=== PATIENT | male | born 1930 | race Hispanic/Latino ===

== ENCOUNTER 2017-03-10 20:38 | Inpatient (IN) | payer MEDICARE, OTHER ==
[2017-03-10] MEDS ORDERED: Iohexol 240 (50 ml) ONE (21:21)
[2017-03-10] MEDS: Sodium Chloride 0.9% 1,000 ML IV SCH (21:25)
[2017-03-10 21:44] LABS: MEAN CELL VOLUME 71.2 fL (80.0-105.0); MEAN CORPUSCULAR HEMOGLOBIN 20.8 pg (25.0-35.0); MEAN CORPUSCULAR HGB CONC 29.2 g/dl (31.0-37.0); PLATELET COUNT 274 10^3/uL (120.0-450.0); RBC 3.37 10^6/uL (3.5-6.1); RED CELL DISTRIBUTION WIDTH 20.9 % (11.5-14.5); WHITE BLOOD COUNT 11.4 10^3/ul (4.5-11.0)
[2017-03-10 21:50] LABS: INR 1.1 (0.93-1.08); PARTIAL THROMBOPLASTIN TIME 32.9 Seconds (23.7-30.8); PROTHROMBIN TIME 11.9 Seconds (9.9-11.8)
[2017-03-10 21:52] LABS: ALBUMIN 3.1 g/dL (3.0-4.8); ALT/SGPT 21 U/L (7-56); AST/SGOT 16 U/L (15-59); BLOOD UREA NITROGEN 47 mg/dL (7-21); CALCIUM 8.2 mg/dL (8.4-10.5); GFR AFRICAN-AMERICAN 19; GFR NON-AFRICAN AMERICAN 16; LIPASE 31 U/L (23-300)
[2017-03-10] MEDS ORDERED: Dextrose 50% SYRINGE Inj (50 ml) ONE (22:00)
[2017-03-10 22:03] LABS: TROPONIN I < 0.01 ng/mL
[2017-03-10 22:20] LABS: BAND 5 % (0-2); NEUTROPHIL 90 % (50.0-70.0)
[2017-03-10 22:21] LABS: HYPOCHROMIA 2+; LYMPHOCYTE 3 % (22.0-35.0); MONOCYTE 2 % (1.0-6.0); PLATELET ESTIMATE NORMAL (NORMAL)
--- NOTE | 2017-03-10 23:44 | CT ---
EXAM: CT Abdomen and Pelvis Without Intravenous Contrast CLINICAL HISTORY: 86 years old, male; Pain; Abdominal pain; Localized; Right; Additional info: Right-sided abdominal pain TECHNIQUE: Axial computed tomography images of the abdomen and pelvis without intravenous contrast. This CT exam was performed using one or more of the following dose reduction techniques: automated exposure control, adjustment of the mA and/or kV according to patient size, and/or use of iterative reconstruction technique. Coronal and sagittal reformatted images were created and reviewed. EXAM DATE/TIME: Exam ordered 03/10/2017 10:03 PM COMPARISON: CT - ABD PELVIS W/O PO OR IV CONT 02/09/2017 11:26:13 AM FINDINGS: Lower thorax: The lung bases show dependent atelectatic changes on the right, reason for asymmetry unclear and correlation for airspace disease suggested. There is cardiomegaly. Calcifications associated with the aortic valve leaflets. Calcifications in keeping with coronary artery disease. Additional left ventricle calcifications which are poorly localized, possibly calcification associated with the mitral valve versus papillary muscles. Trace perihepatic ascites favored to be on a cardiac rather than malignant basis. ABDOMEN: Liver: Unremarkable. Gallbladder and bile ducts: There is redemonstration of biliary air. Again noted that the gallbladder is not identified with certainty. No ductal dilation. Pancreas: Pancreatic duct is not clearly visualized. There is a stable calcification associated with the uncinate process series 2 image 73 without change from series 2 image 82 of the previous examination. This is not definitely parenchymal, noting that it is at the periphery of the parenchyma. Spleen: Unremarkable. No splenomegaly. Adrenals: The appearance of the adrenal glands is similar to the previous study. Kidneys and ureters: Redemonstration of right hydronephrosis and hydroureter to a similar degree as the previous study, with the right ureter is seen to be dilated to its entry to the markedly abnormal bladder. There is now left hydronephrosis which is new since the previous examination. Left hydroureter extends to approximately the level of the iliac crests, etiology is unclear although multiple left renal pelvic calculi are seen. In addition, there is a left ureterovesical junction possible calculus noting that the distal left ureter is again distended, left calculus slightly proximal to the left ureteral vesicle junction measures 7 mm as seen coronal image 76-73. In addition, there is redemonstration of multiple bilateral renal cystic findings, majority of which appear simple a few of which appear high attenuation suggesting hemorrhagic nature, as well as a few small calcified rims, punctate right renal pelvic and small left lower renal pelvic calculi. Stomach and bowel: Fat-containing inguinal hernias,no abdominal wall hernias containing bowel. Innumerable diverticuli noted , question of possible fistulous communication with the bladder. No findings to suggest bowel obstruction. Air and fluid content in the large intestine suggesting possibility of a colitis. Inflammatory change surrounding the sigmoid colon with an numerous diverticuli, suspicious for acute diverticulitis noting that infiltration of the adjacent fat may be related to the known tumor of the bladder. No pathologic bowel dilatation. Appendix: No findings to suggest acute appendicitis. PELVIS: Bladder: Comparison to previous CT dated June 20, 2016 and February 09, 2017. Note that patient has history of bladder tumor with potential local extension and previous episode of bleeding. Bladder again seen to be markedly abnormal in keeping with the known bladder tumor, high attenuation in the bladder is favored to be related to enhancement and hemorrhage rather than to excretion, please correlate with injection protocol as preinjection might contribute. Appearance of the known bladder mass with infiltration into the perivesical fat and coarse calcification is approximately similar noting that the study is not tailored for dedicated evaluation. There is redemonstration of a dot of air within the bladder which could reflect recent instrumentation, infection, or questionably fistulous communication with the GI tract noting poor separation from the adjacent diverticulitis seen for example sagittal image 78. Reproductive: The prostate is poorly from the adjacent bladder neoplasm, with coarse prostatic calcifications again seen. There is suggestion coronal image 72 of possible new hypoattenuation within the prostate which could reflect infection. ABDOMEN and PELVIS: Intraperitoneal space: See above.Trace pelvic and perihepatic ascites Bones/joints: Degenerative spine changes. No acute fracture. No dislocation. Soft tissues: Gynecomastia. There is mild anasarca. Vasculature: Suggestion of a stent in the right common femoral artery, study is not designed for that evaluation, there is extensive atherosclerotic calcification. No abdominal aortic aneurysm. Lymph nodes: Unremarkable. No enlarged lymph nodes. IMPRESSION: Clinical correlation for diverticulitis.Fluid content in the proximal large intestine suggesting possibility of a colitis as a contributing factor to symptoms. Advise evaluation for possibility of prostatitis with surgical defect versus collection related to infection in the differential. History is not provided. New left-sided hydronephrosis and hydroureter. No evidence of appendicitis. Similar appearance of the right kidney again noting severe right hydronephrosis and hydroureter extending to the known right ureterovesical junction and bladder tumor, with question of hemorrhage versus avid enhancement of the tumor. Advise correlation for urinary tract infection, noting air in the bladder and concern for possible fistulous to indication with the GI tract.
[2017-03-10] MEDS ORDERED: metroNIDAZOLE IV 500 mg/100 ml 500 MG/100 ML BAG IVPB STA (23:53)
[2017-03-10] MEDS ORDERED: Ciprofloxacin 200mg/100ml D5W 100 ML IVPB STA (23:53)
[2017-03-11 01:11] LABS: URINE BILIRUBIN NEGATIVE (NEGATIVE); URINE BLOOD LARGE (NEGATIVE); URINE GLUCOSE (UA) NEGATIVE (NEGATIVE); URINE LEUKOCYTE ESTERASE LARGE Leu/uL (NEGATIVE); URINE NITRATE POSITIVE (NEGATIVE); URINE PROTEIN 100 mg/dL (<30 mg/dL); URINE UROBILINOGEN 0.2 E.U./dL (<1 E.U./dL)
[2017-03-11 01:19] LABS: URINE APPEARANCE CLOUDY (CLEAR); URINE COLOR LIGHT ORANGE (YELLOW)
[2017-03-11 01:23] LABS: URINE BACTERIA LARGE (NEG); URINE RBC TNTC /hpf (0-2); URINE WBC TNTC /hpf (0-6)
--- NOTE | 2017-03-11 01:40 | ED PDOC ---
Arrival/HPI - General Chief Complaint: GI Problem Time Seen by Provider: 03/10/17 20:47 Historian: Patient - History of Present Illness Narrative History of Present Illness (Text): 03/11/17 01:44 An 86 year old male, whose past medical history includes hypertension, diabetes , hyperlipidemia and CAD, presents to the emergency department complaining of generalized weakness and several episodes of diarrhea for the past couple of days. Patient reports decrease in appetite. Denies any chest pain, shortness of breath, fever, cough, hematochezia, hematuria or any other complaints at this time. Time/Duration: < week Symptom Onset: Sudden Symptom Course: Unchanged Activities at Onset: Rest Context: Home Past Medical History - Provider Review Nursing Documentation Reviewed: Yes - Infectious Disease Hx of Infectious Diseases: None - Tetanus Immunization Tetanus Immunization: Unknown - Reproductive Currently : No - Cardiac Hx Cardiac Disorders: Yes Hx Hypertension: Yes - Pulmonary Hx Respiratory Disorders: No - Neurological Hx Neurological Disorder: No - HEENT Hx HEENT Disorder: No - Renal Hx Renal Disorder: No - Endocrine/Metabolic Hx Diabetes Mellitus Type 2: Yes - Hematological/Oncological Hx Blood Transfusions: Yes Hx Blood Transfusion Reaction: Yes - Integumentary Hx Dermatological Disorder: No - Musculoskeletal/Rheumatological Hx Falls: Yes - Gastrointestinal Hx Gastrointestinal Disorders: No - Genitourinary/Gynecological Hx Genitourinary Disorders: Yes Hx Hematuria: Yes Hx Prostate Problems: Yes (enlarge prostate) Other/Comment: blood trasfusion on 09-26-14 - Psychiatric Hx Psychophysiologic Disorder: No Hx Substance Use: No - Surgical History Hx Cardiac Catheterization: Yes Hx Coronary Stent: Yes - Anesthesia Hx Anesthesia: Yes Hx Anesthesia Reactions: No Hx Malignant Hyperthermia: No - Suicidal Assessment Feels Threatened In Home Enviroment: No Family/Social History - Physician Review Nursing Documentation Reviewed: Yes Family/Social History: No Known Family HX Smoking Status: Former Smoker Hx Alcohol Use: No Hx Substance Use: No Hx Substance Use Treatment: No Allergies/Home Meds Allergies/Adverse Reactions: Allergies No Known Allergies Allergy (Unverified 06/20/16 13:53) Home Medications: Home Meds Medication Instructions Recorded Confirmed Amiodarone HCl 200 mg PO QAM 06/07/12 04/09/16 Enalapril Maleate 10 mg PO QAM 09/26/14 04/09/16 metFORMIN [glucOPHAGE] 500 mg PO BID 09/26/14 04/09/16 Pantoprazole Sodium [Protonix] 40 mg PO QAM 10/02/14 04/09/16 Tamsulosin [Flomax] 0.4 mg PO DAILY 03/16/15 04/09/16 Atorvastatin [Lipitor] 20 mg PO DAILY 03/29/16 04/09/16 Ferrous Sulfate [Feosol] 325 mg PO DAILY 03/29/16 04/09/16 SITagliptin [Januvia] 100 mg PO DAILY 03/29/16 04/09/16 GlipiZIDE [Glucotrol] 5 mg PO DAILY 03/30/16 04/09/16 Carvedilol [Coreg] 3.125 mg PO DAILY 04/09/16 04/09/16 Unobtainable 06/20/16 06/20/16 Review of Systems - Physician Review All systems were reviewed & negative as marked: Yes - Review of Systems Constitutional: Other (generalized weakness). absent: Fevers Respiratory: absent: SOB, Cough Cardiovascular: absent: Chest Pain Gastrointestinal: Diarrhea, Appetite Changes. absent: Hematochezia Genitourinary Male: absent: Hematuria Physical Exam Vital Signs Reviewed: Yes Vital Signs Temp Pulse Resp BP Pulse Ox 03/11/17 02:06 97.6 F 78 16 128/63 03/11/17 01:50 98.0 F 70 16 114/57 L 03/11/17 00:00 72 18 135/73 95 03/10/17 22:40 70 20 148/72 98 03/10/17 20:40 97.5 F L 67 16 134/59 L 100 Temperature: Afebrile Blood Pressure: Hypotensive Pulse: Regular Respiratory Rate: Normal Appearance: Positive for: Well-Appearing, Non-Toxic, Comfortable Pain Distress: None Mental Status: Positive for: Alert and Oriented X 3 Finger Stick Blood Glucose: 94 - Systems Exam Head: Present: Atraumatic, Normocephalic Pupils: Present: PERRL Extroacular Muscles: Present: EOMI Conjunctiva: Present: Other (pale) Mouth: Present: Moist Mucous Membranes Neck: Present: Normal Range of Motion Respiratory/Chest: Present: Clear to Auscultation, Good Air Exchange. No: Respiratory Distress, Accessory Muscle Use Cardiovascular: Present: Murmurs (systolic) Abdomen: Present: Tenderness (R sided, lower greater than upper), Normal Bowel Sounds. No: Peritoneal Signs Back: Present: Normal Inspection Upper Extremity: Present: Normal Inspection. No: Cyanosis, Edema Lower Extremity: Present: Normal Inspection. No: Edema Neurological: Present: GCS=15, CN II-XII Intact, Speech Normal Skin: Present: Warm, Dry, Normal Color. No: Rashes Psychiatric: Present: Alert, Oriented x 3, Normal Insight, Normal Concentration Medical Decision Making ED Course and Treatment: 03/11/17 01:30 Impression: An 86 year old male with generalized weakness and diarrhea. Differential Diagnosis included but are not limited to: Plan: -- EKG -- CT abd/pelvis -- labs -- IV fluids, Cipro, Flagyl -- Urinalysis -- Reassess and disposition Prior Visits: Notes and results from previous visits were reviewed. Patient last reported to the emergency department on 06/20/16 s/p syncopal episode. Patient was admitted to ICU for anemia. Patient discharged on 07/09/16. Progress Notes: EKG: Ordered, reviewed, and independently interpreted the EKG. Rate : 73 BPM Rhythm : NSR Interpretation : 1st degree AV block Comparison : No previous EKG for comparison. CT Abdomen and Pelvis Without Intravenous Contrast IMPRESSION: Clinical correlation for diverticulitis.Fluid content in the proximal large intestine suggesting possibility of a colitis as a contributing factor to symptoms. Advise evaluation for possibility of prostatitis with surgical defect versus collection related to infection in the differential. History is not provided. New left-sided hydronephrosis and hydroureter. No evidence of appendicitis. Similar appearance of the right kidney again noting severe right hydronephrosis and hydroureter extending to the known right ureterovesical junction and bladder tumor, with question of hemorrhage versus avid enhancement of the tumor. Advise correlation for urinary tract infection, noting air in the bladder and concern for possible fistulous to indication with the GI tract. Dictated and Authenticated by: Nyasia Yanes MD 03/10/2017 11:44 PM Eastern Time ([place] & [place]) Case discussed with Dr. Benny Waters, who agrees to admit patient to telemetry. Reevaluation: I have discussed the results and plan with the patient, who expresses understanding. Patient given the opportunity to ask question, all questions were answered and there is agreement with the plan to be admitted to the hospital. - Lab Interpretations Lab Results: 03/10/17 21:20 03/10/17 21:20 Lab Results 03/10/17 22:03: POC Glucose (mg/dL) 35 L* 03/10/17 21:20: Blood Type A POSITIVE, Antibody Screen Negative, Crossmatch See Detail, BBK History Checked Patient has bt 03/10/17 21:20: Sodium 136, Potassium 4.8, Chloride 105, Carbon Dioxide 20 L, Anion Gap 16, BUN 47 H, Creatinine 3.6 H, Est GFR ( Amer) 19, Est GFR ( Non-Af Amer) 16, Random Glucose 33 L* D, Calcium 8.2 L, Total Bilirubin 0.6, AST 16, ALT 21, Alkaline Phosphatase 77, Lactate Dehydrogenase 408, Total Creatine Kinase 43, Troponin I < 0.01 D, Total Protein 6.3, Albumin 3.1, Globulin 3.2, Albumin/Globulin Ratio 1.0 L, Lipase 31 03/10/17 21:20: PT 11.9 H, INR 1.10 H, APTT 32.9 H 03/10/17 21:20: WBC 11.4 H D, RBC 3.37 L, Hgb 7.0 L D, Hct 24.0 L, MCV 71.2 L, MCH 20.8 L, MCHC 29.2 L, RDW 20.9 H, Plt Count 274, MPV 9.0, Neutrophils % ( Manual) 90 H, Band Neutrophils % 5 H, Lymphocytes % (Manual) 3 L, Monocytes % ( Manual) 2, Platelet Evaluation Normal, Hypochromasia 2+ I have reviewed the lab results: Yes - RAD Interpretation Radiology Orders: 03/10/17 21:04 CHEST PORTABLE [RAD] Stat 03/10/17 22:03 ABD & PELVIS PO CONTRAST ONLY [CT] Stat - EKG Interpretation Interpreted by ED Physician: Yes Type: 12 lead EKG - Medication Orders Current Medication Orders: Sodium Chloride (Sodium Chloride 0.9%) 1,000 mls @ 100 mls/hr IV .Q10H [facility] Last Admin: 03/10/17 21:25 Dose: 100 mls/hr Discontinued Medications Dextrose (Dextrose 50% Inj) Confirm Administered Dose 50 ml .ROUTE .STK-MED ONE Stop: 03/10/17 22:01 Last Admin: 03/10/17 22:07 Dose: 50 ml Ciprofloxacin (Cipro 200mg/100ml D5w) 100 mls @ 67 mls/hr IVPB STAT STA PRN Reason: Protocol Stop: 03/11/17 01:22 Metronidazole (Flagyl) 500 mg in 100 mls @ 100 mls/hr IVPB STAT STA PRN Reason: Protocol Stop: 03/11/17 00:52 Last Admin: 03/11/17 00:17 Dose: 100 mls/hr Iohexol (Omnipaque 240 (50 Ml)) Confirm Administered Dose 50 ml .ROUTE .STK-MED ONE Stop: 03/10/17 21:22 Last Admin: 03/10/17 22:10 Dose: - Scribe Statement The provider has reviewed the documentation as recorded by the Azra Olivares Provider Scribe Attestation: All medical record entries made by the Scribe were at my direction and personally dictated by me. I have reviewed the chart and agree that the record accurately reflects my personal performance of the history, physical exam, medical decision making, and the department course for this patient. I have also personally directed, reviewed, and agree with the discharge instructions and disposition. Disposition/Present on Arrival - Present on Arrival Any Indicators Present on Arrival: No History of DVT/PE: No History of Uncontrolled Diabetes: No Urinary Catheter: No History of Decub. Ulcer: No History Surgical Site Infection Following: None - Disposition Have Diagnosis and Disposition been Completed?: Yes Diagnosis: Colitis, Anemia, Acute on chronic renal failure, Near syncope Disposition: HOSPITALIZED Disposition Time: 23:50 Condition: FAIR
[2017-03-11 04:01] VITALS: BMI 28.2
--- NOTE | 2017-03-11 08:36 | RAD ---
HISTORY: r/o infiltrate COMPARISON: 06/27/2016 FINDINGS: LUNGS: No active pulmonary disease. PLEURA: No significant pleural effusion identified, no pneumothorax apparent. CARDIOVASCULAR: Mild cardiomegaly. Mild aortic tortuosity OSSEOUS STRUCTURES: No significant abnormalities. VISUALIZED UPPER ABDOMEN: Normal. OTHER FINDINGS: None. IMPRESSION: No active disease.
[2017-03-11] MEDS: Sodium Chloride 0.9% 1,000 ML IV SCH ×2 (09:40→16:56)
--- NOTE | 2017-03-11 10:00 | CARD ---
APPROVED REPORT EKG Measurement Heart [id number] MN 206P [id number] <Conclusion> Normal sinus rhythm Nonspecific intraventricular conduction delay Nonspecific ST and T wave abnormality LAD No change
[2017-03-11] MEDS: levoFLOXacin 500 mg in D5W 500 MG/100 ML BAG IVPB SCH (14:08)
--- NOTE | 2017-03-11 14:29 | CP.PCM.HP ---
History of Present Illness - History of Present Illness History of Present Illness: 86 year old male presents to the emergency room complaining of uncontrollable diarrhea of about 5 - 10 times a day. Denies abdominal pain or cramping, denies nausea or vomiting. Onset was sudden about two days ago. Past Medical History is positive for: Anemia and blood transfusions July 2016, 15 - 18 polyps removed on colonoscopy a few years ago, survivor of CPR in the field in 2013 leading to PTCA, Transitional cell bladder carcinoma (s/p RT) , HTN, NIDDM. List of Patient's consultants include: Dr. Otoole, Dr. Buckner, Dr. Lee, Dr. Monaco, Dr. Hemphill 1.Patient to receive 2nd unit PRBC's now, F/U labs for AM ordered 2.Levaquin IV ordered for presumed urosepsis 3.Dr. Buckner asked to consult for GI 4. asked to consult for anemia and bladder ca. 5.Dr. Hemphill asked to consult for bladder ca and new Left hydronephrosis and 7 mm ureteral calculus 6. Present on Admission - Present on Admission Any Indicators Present on Admission: No History of DVT/PE: No History of Uncontrolled Diabetes: No Urinary Catheter: No Decubitus Ulcer Present: No Past Patient History - Infectious Disease Hx of Infectious Diseases: None - Tetanus Immunizations Tetanus Immunization: Unknown - Past Social History Smoking Status: Former Smoker - CARDIAC Hx Cardiac Disorders: Yes Hx Hypertension: Yes - PULMONARY Hx Respiratory Disorders: No - NEUROLOGICAL Hx Neurological Disorder: No - HEENT Hx HEENT Problems: No - RENAL Hx Chronic Kidney Disease: No - ENDOCRINE/METABOLIC Hx Diabetes Mellitus Type 2: Yes - HEMATOLOGICAL/ONCOLOGICAL Hx Blood Transfusions: Yes Hx Blood Transfusion Reaction: Yes - INTEGUMENTARY Hx Dermatological Problems: No - MUSCULOSKELETAL/RHEUMATOLOGICAL Hx Falls: Yes - GASTROINTESTINAL Hx Gastrointestinal Disorders: No - GENITOURINARY/GYNECOLOGICAL Hx Genitourinary Disorders: Yes Hx Hematuria: Yes Hx Prostate Problems: Yes (enlarge prostate) Other/Comment: blood trasfusion on 09-26-14 - PSYCHIATRIC Hx Psychophysiologic Disorder: No Hx Substance Use: No - SURGICAL HISTORY Hx Cardiac Catheterization: Yes Hx Coronary Stent: Yes - ANESTHESIA Hx Anesthesia: Yes Hx Anesthesia Reactions: No Hx Malignant Hyperthermia: No Meds Allergies/Adverse Reactions: Allergies Allergy/AdvReac Type Severity Reaction Status Date / Time No Known Allergies Allergy Unverified 06/20/16 13:53 Results - Vital Signs Recent Vital Signs: Last Vital Signs Temp 98 F 03/11/17 11:58 Pulse 78 03/11/17 11:58 Resp 16 03/11/17 11:58 BP 116/60 03/11/17 11:58 Pulse Ox 94 L 03/11/17 06:00 - Labs Result Diagrams: 03/10/17 21:20 03/10/17 21:20 Labs: Laboratory Results - last 24 hr 03/11/17 01:00 Urine Color Light orange Urine Appearance Cloudy Urine pH 7.0 Ur Specific [place] 1.020 Urine Protein 100 H Urine Glucose (UA) Negative Urine Ketones Negative Urine Blood Large H Urine Nitrate Positive H Urine Bilirubin Negative Urine Urobilinogen 0.2 Ur Leukocyte Esterase Large H Urine RBC Tntc Urine WBC Tntc Ur Epithelial Cells 4 - 5 Urine Bacteria Large
[2017-03-12] MEDS ORDERED: Dextrose 50% SYRINGE Inj (50 ml) IVP ONE (00:11)
--- NOTE | 2017-03-12 00:26 | CP.PCM.PCO ---
<CHACHO GONZALES - Last Filed: 03/12/17 00:16> Physician Communication Note - Physician Communication Note Physician Communication Note: See attached summary for details Summary - Summary of Event Summary of Event: FEED CRUSHER called overhead at 23:54 on 03/11/17. Pt was found to be unresponsive. Not following any commands. Temp 98.7, BP 147/69, HR 66, RR 22, SpO2 94% Fingerstick glucose 47 Exam Gen: no acute distress, no responding CV: RRR + S1 S2 Pulm: CTA b/l no wheezes GI: NTND soft Ext: b/l radial pulses palpable, no edema 1. Hypoglycemia -2 amps of D50 administered -D5W @100 Pt became responsive, following commands, but mildly agitated, pulling out his IV. Ativan 0.25 mg administered STAT Currently, pt is hemodynamically stable, resting comfortably in bed. Will continue to follow. Kennedy Gonzales, PGY1 Jimy Cannon, PGY2 Dr. Ronaldo MD <Sean Higgins - Last Filed: 03/12/17 00:40> Attending/Attestation - Attestation I have personally seen and examined this patient.: Yes I have fully participated in the care of the patient.: Yes I have reviewed all pertinent clinical information: Yes
[2017-03-12] MEDS: Dextrose 5%/0.9% NS 1,000 ML IV SCH ×2 (00:34→14:24)
[2017-03-12 00:45] LABS: ARTERIAL BLOOD GAS HEMOGLOBIN 8.5 g/dL (11.7-17.4); ARTERIAL BLOOD GAS O2 CAPACITY 11.6 mL/dl (16-24); ARTERIAL BLOOD GAS O2 CONTENT 11.1 ML/dl (15-23); ARTERIAL BLOOD GAS O2 SAT 95.3 % (95-98); ARTERIAL BLOOD GAS PCO2 37 mm/Hg (35-45); ARTERIAL BLOOD GAS PH 7.27 (7.35-7.45); ARTERIAL BLOOD GAS TCO2 18.1 mmol.L (22-28)
[2017-03-12] MEDS ORDERED: Sodium Bicarbonate (8.4%) 50 Meq Syringe IVP ONE (01:12)
[2017-03-12 08:07] LABS: EOS % 0.2 % (1.5-5.0); GRAN % 92.7 % (50.0-68.0); HEMOGLOBIN 9.4 gm/dL (14.0-18.0); LYMPH # 0.4 (1.2-3.4); LYMPH % 2.8 % (22.0-35.0); MEAN CELL VOLUME 73.3 fL (80.0-105.0); MEAN PLATELET VOLUME 8.8 fl (7.0-11.0); MONO # 0.6 (0.1-0.6); MONO % 4.3 % (1.0-6.0); PLATELET COUNT 260 10^3/uL (120.0-450.0); RBC 4.27 10^6/uL (3.5-6.1); RED CELL DISTRIBUTION WIDTH 20.9 % (11.5-14.5)
[2017-03-12 08:28] LABS: ALBUMIN 2.8 g/dL (3.0-4.8); CALCIUM 7.9 mg/dL (8.4-10.5)
[2017-03-12] MEDS: levoFLOXacin 500 mg in D5W 500 MG/100 ML BAG IVPB SCH (10:09)
[2017-03-12] MEDS: Pantoprazole 40 mg EC Tab PO SCH (10:10)
--- NOTE | 2017-03-12 20:01 | CP.PCM.CON ---
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 - Musculoskeletal Musculoskeletal: Muscle Weakness - Neurological Neurological: As Per HPI - Hematologic/Lymphatic Hematologic: As Per HPI Past Patient History - Infectious Disease Hx of Infectious Diseases: None - Tetanus Immunizations Tetanus Immunization: Unknown - Past Medical History & Family History Past Family History: Reviewed and not pertinent - Past Social History Smoking Status: Former Smoker - CARDIAC Hx Cardiac Disorders: Yes Hx Hypertension: Yes - PULMONARY Hx Respiratory Disorders: No - NEUROLOGICAL Hx Neurological Disorder: No - HEENT Hx HEENT Problems: No Hx Difficulty Chewing: Yes (poor dentition) - RENAL Hx Chronic Kidney Disease: Yes Other/Comment: hx bladder ca - ENDOCRINE/METABOLIC Hx Diabetes Mellitus Type 2: Yes - HEMATOLOGICAL/ONCOLOGICAL Hx Anemia: Yes Hx Blood Transfusions: Yes (txfuse 5 u of PRBCs 06/19) Hx Blood Transfusion Reaction: Yes - INTEGUMENTARY Hx Dermatological Problems: No - MUSCULOSKELETAL/RHEUMATOLOGICAL Hx Degenerative Joint Disease: Yes Hx Falls: Yes - GASTROINTESTINAL Hx Gastrointestinal Disorders: No - GENITOURINARY/GYNECOLOGICAL Hx Genitourinary Disorders: Yes Hx Hematuria: Yes Hx Prostate Problems: Yes (enlarge prostate) - PSYCHIATRIC Hx Psychophysiologic Disorder: No Hx Substance Use: No - SURGICAL HISTORY Hx Cardiac Catheterization: Yes Hx Coronary Stent: Yes - ANESTHESIA Hx Anesthesia: Yes Hx Anesthesia Reactions: No Hx Malignant Hyperthermia: No Meds Allergies/Adverse Reactions: Allergies Allergy/AdvReac Type Severity Reaction Status Date / Time No Known Allergies Allergy Unverified 06/20/16 13:53 - Medications Medications: Current Medications Amiodarone HCl (Cordarone) 200 mg PO QAM [facility] Last Admin: 03/12/17 10:08 Dose: Not Given Atorvastatin Calcium (Lipitor) 20 mg PO DAILY [facility] Last Admin: 03/12/17 10:10 Dose: 20 mg Carvedilol (Coreg) 3.125 mg PO DAILY [facility] Last Admin: 03/12/17 10:08 Dose: Not Given Ferrous Sulfate (Feosol) 324 mg PO DAILY [facility] Last Admin: 03/12/17 10:09 Dose: 324 mg Levofloxacin/Dextrose (Levaquin 500mg) 500 mg in 100 mls @ 100 mls/hr IVPB DAILY [facility] Last Admin: 03/12/17 10:09 Dose: 100 mls/hr Dextrose/Sodium Chloride (Dextrose 5%/0.9% Ns 1000 Ml) 1,000 mls @ 80 mls/hr IV .[id number] [facility] Last Admin: 03/12/17 14:24 Dose: 80 mls/hr Lisinopril (Zestril) 10 mg PO QAM [facility] Last Admin: 03/12/17 10:10 Dose: Not Given Metformin HCl (Glucophage) 500 mg PO BID [facility] Last Admin: 03/12/17 17:45 Dose: Not Given Pantoprazole Sodium (Protonix Ec Tab) 40 mg PO QAM [facility] Last Admin: 03/12/17 10:10 Dose: 40 mg Sitagliptin Phosphate (Januvia) 100 mg PO DAILY [facility] Last Admin: 03/12/17 10:09 Dose: Not Given Tamsulosin HCl (Flomax) 0.4 mg PO DAILY [facility] Last Admin: 03/12/17 10:09 Dose: 0.4 mg Physical Exam - Constitutional Appears: No Acute Distress, Cachectic, Chronically Ill - Head Exam Head Exam: NORMOCEPHALIC - Eye Exam Eye Exam: Normal appearance - ENT Exam Additional comments: poor dentition - Neck Exam Neck exam: Positive for: Normal Inspection - Respiratory Exam Respiratory Exam: Clear to Auscultation Bilateral, NORMAL BREATHING PATTERN - Cardiovascular Exam Cardiovascular Exam: REGULAR RHYTHM - GI/Abdominal Exam GI & Abdominal Exam: Soft - Exam Additional comments: ramos in situ - Extremities Exam Extremities exam: Positive for: normal inspection - Back Exam Back exam: NORMAL INSPECTION - Neurological Exam Neurological exam: Alert - Skin Skin Exam: Dry, Warm Results - Vital Signs Recent Vital Signs: Last Vital Signs Temp 99.4 F 03/12/17 17:03 Pulse 78 03/12/17 18:00 Resp 18 03/12/17 17:03 BP 123/65 07/09/17 17:03 Pulse Ox 94 L 03/12/17 17:03 - Labs Result Diagrams: 03/12/17 07:30 03/12/17 07:30 Labs: Laboratory Results - last 24 hr 03/11/17 03/12/17 03/12/17 23:51 00:16 00:30 WBC RBC Hgb Hct MCV MCH MCHC RDW Plt Count MPV Gran % Lymph % (Auto) [place] % (Auto) Eos % (Auto) Baso % (Auto) Gran # Lymph # [place] # Eos # Baso # pCO2 37 pO2 69.0 L HCO3 17.0 L ABG pH 7.27 L ABG Total CO2 18.1 L ABG O2 Saturation 95.3 ABG O2 Content 11.1 L ABG Base Excess -9.1 L ABG Hemoglobin 8.5 L ABG Carboxyhemoglobin 2.4 H POC ABG HHb (Measured) 4.5 ABG Methemoglobin 1.1 ABG O2 Capacity 11.6 L Hgb O2 Saturation 92.0 L FiO2 32.0 Sodium Potassium Chloride Carbon Dioxide Anion Gap BUN Creatinine Est GFR ( Amer) Est GFR (Non-Af Amer) POC Glucose (mg/dL) 47 L 278 H Random Glucose Calcium Total Bilirubin AST ALT Alkaline Phosphatase Total Protein Albumin Globulin Albumin/Globulin Ratio 03/12/17 03/12/17 03/12/17 07:30 07:30 07:36 WBC 13.0 H RBC 4.27 Hgb 9.4 L Hct 31.3 L MCV 73.3 L MCH 22.0 L MCHC 30.0 L RDW 20.9 H Plt Count 260 MPV 8.8 Gran % 92.7 H Lymph % (Auto) 2.8 L [place] % (Auto) 4.3 Eos % (Auto) 0.2 L Baso % (Auto) 0.0 Gran # 12.10 H Lymph # 0.4 L [place] # 0.6 Eos # 0.0 Baso # 0.00 pCO2 pO2 HCO3 ABG pH ABG Total CO2 ABG O2 Saturation ABG O2 Content ABG Base Excess ABG Hemoglobin ABG Carboxyhemoglobin POC ABG HHb (Measured) ABG Methemoglobin ABG O2 Capacity Hgb O2 Saturation FiO2 Sodium 137 Potassium 4.8 Chloride 107 Carbon Dioxide 20 L Anion Gap 15 BUN 37 H Creatinine 3.0 H Est GFR ( Amer) 24 Est GFR (Non-Af Amer) 20 POC Glucose (mg/dL) 59 L Random Glucose 40 L* D Calcium 7.9 L Total Bilirubin 0.5 AST 17 ALT 16 Alkaline Phosphatase 75 Total Protein 5.6 L Albumin 2.8 L Globulin 2.8 Albumin/Globulin Ratio 1.0 L 03/12/17 03/12/17 08:14 11:14 WBC RBC Hgb Hct MCV MCH MCHC RDW Plt Count MPV Gran % Lymph % (Auto) [place] % (Auto) Eos % (Auto) Baso % (Auto) Gran # Lymph # [place] # Eos # Baso # pCO2 pO2 HCO3 ABG pH ABG Total CO2 ABG O2 Saturation ABG O2 Content ABG Base Excess ABG Hemoglobin ABG Carboxyhemoglobin POC ABG HHb (Measured) ABG Methemoglobin ABG O2 Capacity Hgb O2 Saturation FiO2 Sodium Potassium Chloride Carbon Dioxide Anion Gap BUN Creatinine Est GFR ( Amer) Est GFR (Non-Af Amer) POC Glucose (mg/dL) 63 L 103 Random Glucose Calcium Total Bilirubin AST ALT Alkaline Phosphatase Total Protein Albumin Globulin Albumin/Globulin Ratio Assessment & Plan (1) Urothelial carcinoma of bladder Status: Acute (2) Diarrhea Status: Acute (3) Anemia Status: Acute (4) Kidney disease Status: Acute (5) Hydronephrosis Status: Acute (6) Urothelial carcinoma Status: Acute - Assessment and Plan (Free Text) Plan: Cont plan as per MDs, monitor clinically, and w labs pt txfused also begin tranexemic acid if OK w renal (Dr Lee) as per Dr Otoole
--- NOTE | 2017-03-12 23:35 | CP.PCM.PN ---
Subjective - Date & Time of Evaluation Date of Evaluation: 03/12/17 Time of Evaluation: 15:30 - Subjective Subjective: No specific complains Objective - Vital Signs/Intake and Output Vital Signs (last 24 hours): Temp Pulse Resp BP Pulse Ox 99.4 F 73 18 123/65 94 L 03/12/17 17:03 03/12/17 22:00 03/12/17 17:03 03/12/17 17:03 03/12/17 17:03 Intake and Output: 03/12/17 03/13/17 18:59 06:59 Intake Total 600 Output Total 600 Balance 0 - Medications Medications: Current Medications Amiodarone HCl (Cordarone) 200 mg PO QAM [facility] Last Admin: 03/12/17 10:08 Dose: Not Given Atorvastatin Calcium (Lipitor) 20 mg PO DAILY [facility] Last Admin: 03/12/17 10:10 Dose: 20 mg Carvedilol (Coreg) 3.125 mg PO DAILY [facility] Last Admin: 03/12/17 10:08 Dose: Not Given Ferrous Sulfate (Feosol) 324 mg PO DAILY [facility] Last Admin: 03/12/17 10:09 Dose: 324 mg Levofloxacin/Dextrose (Levaquin 500mg) 500 mg in 100 mls @ 100 mls/hr IVPB DAILY [facility] Last Admin: 03/12/17 10:09 Dose: 100 mls/hr Dextrose/Sodium Chloride (Dextrose 5%/0.9% Ns 1000 Ml) 1,000 mls @ 80 mls/hr IV .[id number] [facility] Last Admin: 03/12/17 14:24 Dose: 80 mls/hr Lisinopril (Zestril) 10 mg PO QAM [facility] Last Admin: 03/12/17 10:10 Dose: Not Given Metformin HCl (Glucophage) 500 mg PO BID [facility] Last Admin: 03/12/17 17:45 Dose: Not Given Pantoprazole Sodium (Protonix Ec Tab) 40 mg PO QAM [facility] Last Admin: 03/12/17 10:10 Dose: 40 mg Sitagliptin Phosphate (Januvia) 100 mg PO DAILY [facility] Last Admin: 03/12/17 10:09 Dose: Not Given Tamsulosin HCl (Flomax) 0.4 mg PO DAILY [facility] Last Admin: 03/12/17 10:09 Dose: 0.4 mg - Labs Labs: 03/12/17 07:30 03/12/17 07:30 PT 11.9 Seconds (9.9-11.8) H 03/10/17 21:20 INR 1.10 (0.93-1.08) H 03/10/17 21:20 APTT 32.9 Seconds (23.7-30.8) H 03/10/17 21:20 - Constitutional Appears: No Acute Distress - Head Exam Head Exam: ATRAUMATIC, NORMOCEPHALIC - Eye Exam Eye Exam: EOMI, PERRL - ENT Exam ENT Exam: Mucous Membranes Moist, Normal Exam - Neck Exam Neck Exam: Full ROM. absent: Lymphadenopathy - Respiratory Exam Respiratory Exam: Clear to Ausculation Bilateral, NORMAL BREATHING PATTERN - Cardiovascular Exam Cardiovascular Exam: REGULAR RHYTHM, +S1, +S2 - GI/Abdominal Exam GI & Abdominal Exam: Soft, Tenderness, Normal Bowel Sounds. absent: Mass - Extremities Exam Extremities Exam: Full ROM, Normal Inspection. absent: Pedal Edema - Neurological Exam Neurological Exam: Alert, Awake, Oriented x3 Assessment and Plan - Assessment and Plan (Free Text) Assessment: Anemia sp transfusion Hct stable EGD and colonoscopy last in JUL 2016 one cecal polyp removed benign Egd neg Bladder cancer sp RT CKD CAD Plan: Followup hb /hct stool for occult blood likely source less likely GI last gi workup reviewed will dw PCP cy report reviewed . reviewed filsr/o vesicocolic fistula will review with radiologist
[2017-03-13] MEDS: Dextrose 5%/0.9% NS 1,000 ML IV SCH ×2 (00:30→15:15)
[2017-03-13 06:59] LABS: BASO # 0.01 K/mm3 (0.0-2.0); BASO % 0.1 % (0.0-3.0); EOS # 0.1 (0.0-0.7); EOS % 0.7 % (1.5-5.0); GRAN # 9.81 (1.4-6.5); GRAN % 91.4 % (50.0-68.0); HEMOGLOBIN 8.4 gm/dL (14.0-18.0); LYMPH # 0.3 (1.2-3.4); LYMPH % 3.1 % (22.0-35.0); MEAN CELL VOLUME 74.7 fL (80.0-105.0); MEAN CORPUSCULAR HEMOGLOBIN 22.2 pg (25.0-35.0); MEAN CORPUSCULAR HGB CONC 29.7 g/dl (31.0-37.0); MEAN PLATELET VOLUME 8.7 fl (7.0-11.0); MONO # 0.5 (0.1-0.6); MONO % 4.7 % (1.0-6.0); PLATELET COUNT 196 10^3/uL (120.0-450.0); RBC 3.79 10^6/uL (3.5-6.1); RED CELL DISTRIBUTION WIDTH 21.8 % (11.5-14.5); WHITE BLOOD COUNT 10.7 10^3/ul (4.5-11.0)
[2017-03-13 07:31] LABS: ALB/GLOB RATIO 0.9 (1.1-1.8); ALBUMIN 2.3 g/dL (3.0-4.8); CALCIUM 7.5 mg/dL (8.4-10.5)
[2017-03-13] MEDS: Pantoprazole 40 mg EC Tab PO SCH (09:29)
[2017-03-13] MEDS: levoFLOXacin 500 mg in D5W 500 MG/100 ML BAG IVPB SCH (09:33)
--- NOTE | 2017-03-13 09:36 | CP.PCM.PN ---
<Bethany Mendoza - Last Filed: 03/14/17 06:34> Subjective - Date & Time of Evaluation Date of Evaluation: 03/13/17 Time of Evaluation: 09:30 - Subjective Subjective: PGY-[address] Otoole No acute complaint. Apeptite "so-so" Last BM was 4 days ago Abdominal pain only triggered by deep palpation Objective - Vital Signs/Intake and Output Vital Signs (last 24 hours): Temp Pulse Resp BP Pulse Ox 98.6 F 71 20 118/50 L 94 L 03/13/17 06:00 03/13/17 06:00 03/13/17 06:00 03/13/17 06:00 03/13/17 06:00 Intake and Output: 03/13/17 03/13/17 06:59 18:59 Intake Total 960 260 Output Total 300 Balance 960 -40 - Medications Medications: Current Medications [facility] [place] Admin: 03/12/17 10:08 Dose: Not Given Atorvastatin Calcium (Lipitor) 20 mg PO DAILY [facility] Last Admin: 03/12/17 10:10 Dose: 20 mg Carvedilol (Coreg) 3.125 mg PO DAILY [facility] Last Admin: 03/12/17 10:08 Dose: Not Given Ferrous Sulfate (Feosol) 324 mg PO DAILY [facility] Last Admin: 03/12/17 10:09 Dose: 324 mg Levofloxacin/Dextrose (Levaquin 500mg) 500 mg in 100 mls @ 100 mls/hr IVPB DAILY [facility] Last Admin: 03/12/17 10:09 Dose: 100 mls/hr Dextrose/Sodium Chloride (Dextrose 5%/0.9% Ns 1000 Ml) 1,000 mls @ 80 mls/hr IV .[id number] [facility] Last Admin: 03/13/17 00:30 Dose: 80 mls/hr Lisinopril (Zestril) 10 mg PO [facility] Last Admin: 03/12/17 10:10 Dose: Not Given Metformin HCl (Glucophage) 500 mg PO BID [facility] Last Admin: 03/12/17 17:45 Dose: Not Given Pantoprazole Sodium (Protonix Ec Tab) 40 mg PO [facility] Last Admin: 03/12/17 10:10 Dose: 40 mg Sitagliptin Phosphate (Januvia) 100 mg PO DAILY [facility] Last Admin: 03/12/17 10:09 Dose: Not Given Tamsulosin HCl (Flomax) 0.4 mg PO DAILY [facility] Last Admin: 03/12/17 10:09 Dose: 0.4 mg - Labs Labs: 03/13/17 06:40 03/13/17 06:40 PT 11.9 Seconds (9.9-11.8) H 03/10/17 21:20 INR 1.10 (0.93-1.08) H 03/10/17 21:20 APTT 32.9 Seconds (23.7-30.8) H 03/10/17 21:20 - Constitutional Appears: No Acute Distress, Chronically Ill - Head Exam Head Exam: NORMAL INSPECTION, NORMOCEPHALIC Additional comments: dark scab on superior scalp. No bleeding - Eye Exam Eye Exam: EOMI, PERRL. absent: Scleral icterus Pupil Exam: NORMAL ACCOMODATION, PERRL - ENT Exam ENT Exam: Mucous Membranes Moist - Respiratory Exam Respiratory Exam: Clear to Ausculation Bilateral. absent: Rales, Rhonchi, Wheezes - Cardiovascular Exam Cardiovascular Exam: REGULAR RHYTHM, +S1, +S2. absent: Murmur - GI/Abdominal Exam GI & Abdominal Exam: Distended, Soft, Tenderness (diffuse 2/10 on deep palpation. typamic BS on percssion), Organomegaly. absent: Guarding, Rigid - Extremities Exam Extremities Exam: Normal Capillary Refill. 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 Otoole <Marguerite Otoole P - Last Filed: 03/19/17 00:57> Objective - Vital Signs/Intake and Output Vital Signs (last 24 hours): Temp Pulse Resp BP Pulse Ox 97.9 F 69 22 131/74 97 03/18/17 07:59 03/18/17 09:53 03/18/17 07:59 03/18/17 09:53 03/18/17 07:59 - Medications Medications: Current Medications Acetaminophen (Tylenol 325mg Tab) 650 mg PO Q4H PRN PRN Reason: fever > 100.5 Last Admin: 03/17/17 04:32 Dose: 650 mg Amiodarone HCl (Cordarone) 200 mg PO QAM [facility] Last Admin: 03/18/17 09:50 Dose: 200 mg Atorvastatin Calcium (Lipitor) 20 mg PO DAILY [facility] Last Admin: 03/18/17 09:50 Dose: 20 mg Bacitracin (Bacitracin) 1 ea TOP DAILY [facility] Last Admin: 03/18/17 09:50 Dose: 1 ea Benzonatate (Tessalon Perles) 100 mg PO TID [facility] Last Admin: 03/18/17 17:54 Dose: 100 mg Carvedilol (Coreg) 3.125 mg PO DAILY [facility] Last Admin: 03/18/17 09:53 Dose: 3.125 mg Docusate Sodium (Colace) 100 mg PO BID [facility] Last Admin: 03/18/17 17:54 Dose: 100 mg Piperacillin Sod/Tazobactam Sod (Zosyn 3.375 In Ns 100ml) 100 mls @ 200 mls/hr IVPB Q8 [facility] PRN Reason: Protocol Stop: 03/24/17 09:16 Last Admin: 03/18/17 21:15 Dose: 200 mls/hr Lisinopril (Zestril) 10 mg PO QAM [facility] Last Admin: 03/18/17 09:51 Dose: 10 mg Pantoprazole Sodium (Protonix Ec Tab) 40 mg PO QAM [facility] Last Admin: 03/18/17 09:51 Dose: 40 mg Polyethylene Glycol (Miralax) 17 gm PO DAILY [facility] Last Admin: 03/18/17 09:53 Dose: 17 gm Sitagliptin Phosphate (Januvia) 50 mg PO DAILY [facility] Last Admin: 03/18/17 09:50 Dose: 50 mg Tamsulosin HCl (Flomax) 0.4 mg PO DAILY [facility] Last Admin: 03/18/17 09:51 Dose: 0.4 mg - Labs Labs: 03/18/17 07:35 03/18/17 07:35 PT 13.9 Seconds (9.9-11.8) H 03/17/17 16:25 INR 1.29 (0.93-1.08) H 03/17/17 16:25 APTT 47.6 Seconds (23.7-30.8) H 03/17/17 16:25 Attending/Attestation - Attestation I have personally seen and examined this patient.: Yes I have fully participated in the care of the patient.: Yes I have reviewed all pertinent clinical information, including history, physical exam and plan: Yes
--- NOTE | 2017-03-13 11:51 | CP.PCM.PN ---
<Beatriz Heredia - Last Filed: 03/13/17 15:53> Subjective - Date & Time of Evaluation Date of Evaluation: 03/13/17 Time of Evaluation: 09:25 - Subjective Subjective: S&E, chart reviewed. No acute overnight events. Eating breakfast, and tolerating. No BM yet. Denies SOB, CP or abdominal pain. Cdiff negative. Objective - Vital Signs/Intake and Output Vital Signs (last 24 hours): Temp Pulse Resp BP Pulse Ox 98.6 F 94 H 20 118/50 L 94 L 03/13/17 06:00 03/13/17 09:29 03/13/17 06:00 03/13/17 09:29 03/13/17 06:00 Intake and Output: 03/13/17 03/13/17 06:59 18:59 Intake Total 960 260 Output Total 300 Balance 960 -40 - Medications Medications: Current Medications Amiodarone HCl (Cordarone) 200 mg PO QAM [facility] Last Admin: 03/13/17 09:29 Dose: 200 mg Atorvastatin Calcium (Lipitor) 20 mg PO DAILY [facility] Last Admin: 03/13/17 09:29 Dose: 20 mg Carvedilol (Coreg) 3.125 mg PO DAILY [facility] Last Admin: 03/13/17 09:28 Dose: 3.125 mg Ferrous Sulfate (Feosol) 324 mg PO DAILY [facility] Last Admin: 03/13/17 09:28 Dose: 324 mg Levofloxacin/Dextrose (Levaquin 500mg) 500 mg in 100 mls @ 100 mls/hr IVPB DAILY [facility] Last Admin: 03/13/17 09:33 Dose: 100 mls/hr Dextrose/Sodium Chloride (Dextrose 5%/0.9% Ns 1000 Ml) 1,000 mls @ 80 mls/hr IV .[id number] [facility] Last Admin: 03/13/17 00:30 Dose: 80 mls/hr [facility] [place] Last Admin: 03/13/17 09:28 Dose: 10 mg Metformin HCl (Glucophage) 500 mg PO BID [facility] Last Admin: 03/13/17 09:33 Dose: 500 mg Pantoprazole Sodium ([facility]tonix Ec Tab) [facility] [place] Last Admin: 03/13/17 09:29 Dose: 40 mg Sitagliptin Phosphate (Januvia) 100 mg PO DAILY [facility] Last Admin: 03/13/17 09:33 Dose: 100 mg Tamsulosin HCl (Flomax) 0.4 mg PO DAILY [facility] Last Admin: 03/13/17 09:27 Dose: 0.4 mg - Labs Labs: 03/13/17 06:40 03/13/17 06:40 PT 11.9 Seconds (9.9-11.8) H 03/10/17 21:20 INR 1.10 (0.93-1.08) H 03/10/17 21:20 APTT 32.9 Seconds (23.7-30.8) H 03/10/17 21:20 - Constitutional Appears: No Acute Distress - Head Exam Head Exam: NORMOCEPHALIC - Eye Exam Eye Exam: Normal appearance. absent: Scleral icterus - ENT Exam ENT Exam: Mucous Membranes Moist - Neck Exam Neck Exam: Normal Inspection - Respiratory Exam Respiratory Exam: NORMAL BREATHING PATTERN. absent: Respiratory Distress - Cardiovascular Exam Cardiovascular Exam: +S1, +S2 - GI/Abdominal Exam GI & Abdominal Exam: Soft, Normal Bowel Sounds. absent: Guarding, Tenderness, Rebound - Neurological Exam Neurological Exam: Alert, Awake, Oriented x3 - Skin Skin Exam: Dry, Warm Assessment and Plan - Assessment and Plan (Free Text) Assessment: Assessment: Anemia sp transfusion Hct stable/EGD neg and colonoscopy one cecal polyp removed benign, last in JUL 2016 H/O Colon polyp Bladder cancer sp RT CKD CAD UTI ct scan report reviewed,reviewed vesicocolic fistula will review with radiologist Plan: Followup hb /hct stool for occult blood likely source less likely GI continue PPI on Iron supplement On Levaquin Seen and discussed with Dr. Buckner. Addendum: stool culture :(+) gram negative mandeep <Kary Buckner V - Last Filed: 03/13/17 23:52> Objective - Vital Signs/Intake and Output Vital Signs (last 24 hours): Temp Pulse Resp BP Pulse Ox 98.5 F 71 18 142/73 94 L 03/13/17 18:00 03/13/17 18:00 03/13/17 18:00 03/13/17 18:00 03/13/17 06:00 Intake and Output: 03/13/17 03/14/17 18:59 06:59 Intake Total 800 Output Total 1100 Balance -300 - Medications Medications: Current Medications Amiodarone HCl (Cordarone) 200 mg PO QAM [facility] Last Admin: 03/13/17 09:29 Dose: 200 mg Atorvastatin Calcium (Lipitor) 20 mg PO DAILY [facility] Last Admin: 03/13/17 09:29 Dose: 20 mg Carvedilol (Coreg) 3.125 mg PO DAILY [facility] Last Admin: 03/13/17 09:28 Dose: 3.125 mg Ferrous Sulfate (Feosol) 324 mg PO DAILY [facility] Last Admin: 03/13/17 09:28 Dose: 324 mg Levofloxacin/Dextrose (Levaquin 500mg) 500 mg in 100 mls @ 100 mls/hr IVPB DAILY [facility] Last Admin: 03/13/17 09:33 Dose: 100 mls/hr Dextrose/Sodium Chloride (Dextrose 5%/0.9% Ns 1000 Ml) 1,000 mls @ 80 mls/hr IV .[id number] [facility] Last Admin: 03/13/17 15:15 Dose: 80 mls/hr Lisinopril (Zestril) 10 mg PO QAM [facility] Last Admin: 03/13/17 09:28 Dose: 10 mg Pantoprazole Sodium (Protonix Ec Tab) 40 mg PO QAM [facility] Last Admin: 03/13/17 09:29 Dose: 40 mg Sitagliptin Phosphate (Januvia) 100 mg PO DAILY [facility] Last Admin: 03/13/17 09:33 Dose: 100 mg Tamsulosin HCl (Flomax) 0.4 mg PO DAILY [facility] Last Admin: 03/13/17 09:27 Dose: 0.4 mg - Labs Labs: 03/13/17 06:40 03/13/17 06:40 PT 11.9 Seconds (9.9-11.8) H 03/10/17 21:20 INR 1.10 (0.93-1.08) H 03/10/17 21:20 APTT 32.9 Seconds (23.7-30.8) H 03/10/17 21:20 Attending/Attestation - Attestation I have personally seen and examined this patient.: Yes I have fully participated in the care of the patient.: Yes I have reviewed all pertinent clinical information, including history, physical exam and plan: Yes Notes (Text): this
--- NOTE | 2017-03-13 14:13 | CP.PCM.CON ---
History of Present Illness - History of Present Illness History of Present Illness: Reason for consultation: MARCIA, Hyperkalemia, [place] HPI:An 86 year old male, whose past medical history includes hypertension, diabetes, hyperlipidemia and CAD, presents to the emergency department complaining of generalized weakness and several episodes of diarrhea for the past couple of days. Patient reports decrease in appetite. Denies any chest pain , shortness of breath, fever, cough, hematochezia, hematuria or any other complaints at this time.Found to have Hgb. 7.4, Elevated creat 3.6, K 5.4 PMSHx: As mentioned in HPI, CKD4, Bladder Ca, Anemia FHx: NC Social Hx:Exsmoker, no alcohol, no IVDA All: NKDA Meds: Reviewed Review of Systems - Review of Systems All systems: reviewed and no additional remarkable complaints except Past Patient History - Infectious Disease Hx of Infectious Diseases: None - Tetanus Immunizations Tetanus Immunization: Unknown - Past Medical History & Family History Past Family History: Reviewed and not pertinent - Past Social History Smoking Status: Former Smoker - CARDIAC Hx Cardiac Disorders: Yes Hx Hypertension: Yes - PULMONARY Hx Respiratory Disorders: No - NEUROLOGICAL Hx Neurological Disorder: No - HEENT Hx HEENT Problems: No Hx Difficulty Chewing: Yes (poor dentition) - RENAL Hx Chronic Kidney Disease: Yes Other/Comment: hx bladder ca - ENDOCRINE/METABOLIC Hx Diabetes Mellitus Type 2: Yes - HEMATOLOGICAL/ONCOLOGICAL Hx Anemia: Yes Hx Blood Transfusions: Yes (txfuse 5 u of PRBCs 06/19) Hx Blood Transfusion Reaction: Yes - INTEGUMENTARY Hx Dermatological Problems: No - MUSCULOSKELETAL/RHEUMATOLOGICAL Hx Degenerative Joint Disease: Yes Hx Falls: Yes - GASTROINTESTINAL Hx Gastrointestinal Disorders: No - GENITOURINARY/GYNECOLOGICAL Hx Genitourinary Disorders: Yes Hx Hematuria: Yes Hx Prostate Problems: Yes (enlarge prostate) - PSYCHIATRIC Hx Psychophysiologic Disorder: No Hx Substance Use: No - SURGICAL HISTORY Hx Cardiac Catheterization: Yes Hx Coronary Stent: Yes - ANESTHESIA Hx Anesthesia: Yes Hx Anesthesia Reactions: No Hx Malignant Hyperthermia: No Meds Allergies/Adverse Reactions: Allergies Allergy/AdvReac Type Severity Reaction Status Date / Time No Known Allergies Allergy Unverified 06/20/16 13:53 - Medications Medications: Current Medications Amiodarone HCl (Cordarone) 200 mg PO [facility] Last Admin: 03/13/17 09:29 Dose: 200 mg Atorvastatin Calcium (Lipitor) 20 mg PO DAILY [facility] Last Admin: 03/13/17 09:29 Dose: 20 mg Carvedilol (Coreg) 3.125 mg PO DAILY [facility] Last Admin: 03/13/17 09:28 Dose: 3.125 mg Ferrous Sulfate (Feosol) 324 mg PO DAILY [facility] Last Admin: 03/13/17 09:28 Dose: 324 mg Levofloxacin/Dextrose (Levaquin 500mg) 500 mg in 100 mls @ 100 mls/hr IVPB DAILY [facility] Last Admin: 03/13/17 09:33 Dose: 100 mls/hr Dextrose/Sodium Chloride (Dextrose 5%/0.9% Ns 1000 Ml) 1,000 mls @ 80 mls/hr IV .[id number] [facility] Last Admin: 03/13/17 00:30 Dose: 80 mls/hr Lisinopril (Zestril) 10 mg PO QAM [facility] Last Admin: 03/13/17 09:28 Dose: 10 mg Pantoprazole Sodium (Protonix Ec Tab) 40 mg PO QAM [facility] Last Admin: 03/13/17 09:29 Dose: 40 mg Sitagliptin Phosphate (Januvia) 100 mg PO DAILY [facility] Last Admin: 03/13/17 09:33 Dose: 100 mg Tamsulosin HCl (Flomax) 0.4 mg PO DAILY [facility] Last Admin: 03/13/17 09:27 Dose: 0.4 mg Physical Exam - Constitutional Appears: Unkempt, Cachectic - Head Exam Head Exam: ATRAUMATIC, NORMAL INSPECTION - Eye Exam Eye Exam: PERRL - ENT Exam ENT Exam: Mucous Membranes Moist - Respiratory Exam Respiratory Exam: Clear to Auscultation Bilateral, NORMAL BREATHING PATTERN - Cardiovascular Exam Cardiovascular Exam: REGULAR RHYTHM, +S1, +S2 - GI/Abdominal Exam GI & Abdominal Exam: Normal Bowel Sounds, Soft - Extremities Exam Extremities exam: Positive for: normal inspection Results - Vital Signs Recent Vital Signs: Last Vital Signs Temp 98.6 F 03/13/17 06:00 Pulse 94 H 03/13/17 09:29 Resp 20 03/13/17 06:00 BP 118/50 L 03/13/17 09:29 Pulse Ox 94 L 03/13/17 06:00 - Labs Result Diagrams: 03/13/17 06:40 07/10/17 06:40 Labs: Laboratory Results - last 24 hr 03/12/17 03/12/17 03/13/17 16:14 21:00 00:44 WBC RBC Hgb Hct MCV MCH MCHC RDW Plt Count MPV Gran % Lymph % (Auto) Sanders % (Auto) Eos % (Auto) Baso % (Auto) Gran # Lymph # Sanders # Eos # Baso # Sodium Potassium Chloride Carbon Dioxide Anion Gap BUN Creatinine Est GFR ( Amer) Est GFR (Non-Af Amer) POC Glucose (mg/dL) 95 125 H 163 H Random Glucose Calcium Total Bilirubin AST ALT Alkaline Phosphatase Total Protein Albumin Globulin Albumin/Globulin Ratio 03/13/17 03/13/17 03/13/17 06:40 06:40 07:45 WBC 10.7 RBC 3.79 Hgb 8.4 L Hct 28.3 L MCV 74.7 L MCH 22.2 L MCHC 29.7 L RDW 21.8 H Plt Count 196 MPV 8.7 Gran % 91.4 H Lymph % (Auto) 3.1 L Sanders % (Auto) 4.7 Eos % (Auto) 0.7 L Baso % (Auto) 0.1 Gran # 9.81 H Lymph # 0.3 L Sanders # 0.5 Eos # 0.1 Baso # 0.01 Sodium 138 Potassium 5.2 H Chloride 110 H Carbon Dioxide 19 L Anion Gap 14 BUN 32 H Creatinine 2.9 H Est GFR ( Amer) 25 Est GFR (Non-Af Amer) 21 POC Glucose (mg/dL) 225 H Random Glucose 203 H Calcium 7.5 L Total Bilirubin 0.2 AST 13 L ALT 16 Alkaline Phosphatase 69 Total Protein 4.9 L Albumin 2.3 L Globulin 2.6 Albumin/Globulin Ratio 0.9 L 03/13/17 03/13/17 09:31 11:23 WBC RBC Hgb Hct MCV MCH MCHC RDW Plt Count MPV Gran % Lymph % (Auto) Sanders % (Auto) Eos % (Auto) Baso % (Auto) Gran # Lymph # Sanders # Eos # Baso # Sodium Potassium Chloride Carbon Dioxide Anion Gap BUN Creatinine Est GFR ( Amer) Est GFR (Non-Af Amer) POC Glucose (mg/dL) 287 H 247 H Random Glucose Calcium Total Bilirubin AST ALT Alkaline Phosphatase Total Protein Albumin Globulin Albumin/Globulin Ratio Assessment & Plan - Assessment and Plan (Free Text) Assessment: MARCIA superimposed on CKD4 Hyperkalemia Severe anemia: GI blood loss vs hematuria vs CKD NIDDM HTN Dehydration Diarrhea Con't IVF No intervention for mild increased K W/u anemia D/c Metformin, since baseline creat ~2.0 avoid nephrotoxins OK to con't Lisinopril Thank you for this consultation - Date & Time Date: 03/13/17 Time: 13:45
[2017-03-13 14:38] LABS: TOTAL IRON BINDING CAPACITY 187 ug/dL (261-462)
[2017-03-13 15:37] LABS: IRON 10 ug/dL (45-180)
[2017-03-13 15:38] LABS: % IRON SATURATION 5 % (20-55)
[2017-03-13 16:54] LABS: URINE BILIRUBIN NEGATIVE (NEGATIVE); URINE BLOOD LARGE (NEGATIVE); URINE GLUCOSE (UA) 250 mg/dL (NEGATIVE); URINE LEUKOCYTE ESTERASE SMALL Leu/uL (NEGATIVE); URINE NITRATE NEGATIVE (NEGATIVE); URINE PROTEIN 100 mg/dL (<30 mg/dL); URINE UROBILINOGEN 0.2 E.U./dL (<1 E.U./dL)
[2017-03-13 16:57] LABS: URINE APPEARANCE CLOUDY (CLEAR); URINE COLOR YELLOW (YELLOW)
[2017-03-13 17:08] LABS: URINE BACTERIA FEW (NEG); URINE EPITHELIAL CELLS 0 - 2 /hpf (0-5); URINE RBC TNTC /hpf (0-2)
[2017-03-14 08:20] LABS: BASO # 0.01 K/mm3 (0.0-2.0); BASO % 0.1 % (0.0-3.0); EOS # 0.1 (0.0-0.7); EOS % 0.8 % (1.5-5.0); GRAN # 11.18 (1.4-6.5); HEMOGLOBIN 8.6 gm/dL (14.0-18.0); LYMPH # 0.2 (1.2-3.4); LYMPH % 1.8 % (22.0-35.0); MEAN CELL VOLUME 75.4 fL (80.0-105.0); MEAN CORPUSCULAR HGB CONC 29.2 g/dl (31.0-37.0); MEAN PLATELET VOLUME 9.1 fl (7.0-11.0); MONO # 0.4 (0.1-0.6); MONO % 3.3 % (1.0-6.0); PLATELET COUNT 187 10^3/uL (120.0-450.0); RBC 3.91 10^6/uL (3.5-6.1); WHITE BLOOD COUNT 11.9 10^3/ul (4.5-11.0)
[2017-03-14 08:30] LABS: ALB/GLOB RATIO 0.9 (1.1-1.8); ALBUMIN 2.5 g/dL (3.0-4.8); CALCIUM 7.9 mg/dL (8.4-10.5)
--- NOTE | 2017-03-14 09:22 | CP.PCM.PN ---
Subjective - Date & Time of Evaluation Date of Evaluation: 03/14/17 Time of Evaluation: 08:00 - Subjective Subjective: Awake, alert c/o cough Objective - Vital Signs/Intake and Output Vital Signs (last 24 hours): Temp Pulse Resp BP Pulse Ox 98.4 F 69 19 125/55 L 94 L 03/14/17 06:00 03/14/17 06:00 03/14/17 06:00 03/14/17 06:00 03/13/17 06:00 Intake and Output: 03/14/17 03/14/17 06:59 18:59 Intake Total 0 Output Total 700 Balance -700 - Medications Medications: Current Medications Amiodarone HCl (Cordarone) 200 mg PO QAM [facility] Last Admin: 03/13/17 09:29 Dose: 200 mg Atorvastatin Calcium (Lipitor) 20 mg PO DAILY [facility] Last Admin: 03/13/17 09:29 Dose: 20 mg Carvedilol (Coreg) 3.125 mg PO DAILY [facility] Last Admin: 03/13/17 09:28 Dose: 3.125 mg Ferrous Sulfate (Feosol) 324 mg PO DAILY [facility] Last Admin: 03/13/17 09:28 Dose: 324 mg Dextrose/Sodium Chloride (Dextrose 5%/0.9% Ns 1000 Ml) 1,000 mls @ 80 mls/hr IV .[id number] [facility] Last Admin: 03/13/17 15:15 Dose: 80 mls/hr Iron Sucrose 200 mg/ Sodium (Chloride) 110 mls @ 110 mls/hr IVPB DAILY [facility] Stop: 03/18/17 10:59 Levofloxacin/Dextrose (Levaquin 250mg) 250 mg in 50 mls @ 100 mls/hr IVPB Q48H [facility] Lisinopril (Zestril) 10 mg PO QAM [facility] Last Admin: 03/13/17 09:28 Dose: 10 mg Pantoprazole Sodium (Protonix Ec Tab) 40 mg PO QAM [facility] Last Admin: 03/13/17 09:29 Dose: 40 mg Sitagliptin Phosphate (Januvia) 100 mg PO DAILY [facility] Last Admin: 03/13/17 09:33 Dose: 100 mg Tamsulosin HCl (Flomax) 0.4 mg PO DAILY [facility] Last Admin: 03/13/17 09:27 Dose: 0.4 mg - Labs Labs: 03/14/17 07:00 03/14/17 07:00 PT 11.9 Seconds (9.9-11.8) H 03/10/17 21:20 INR 1.10 (0.93-1.08) H 03/10/17 21:20 APTT 32.9 Seconds (23.7-30.8) H 03/10/17 21:20 - Constitutional Appears: Chronically Ill - Head Exam Head Exam: ATRAUMATIC, NORMOCEPHALIC - Eye Exam Eye Exam: PERRL - ENT Exam ENT Exam: Mucous Membranes Moist - Respiratory Exam Respiratory Exam: NORMAL BREATHING PATTERN - Cardiovascular Exam Cardiovascular Exam: REGULAR RHYTHM, +S1, +S2 - GI/Abdominal Exam GI & Abdominal Exam: Soft, Normal Bowel Sounds - Extremities Exam Extremities Exam: Normal Inspection - Neurological Exam Neurological Exam: Alert, Awake Assessment and Plan - Assessment and Plan (Free Text) Assessment: MARCIA superimposed on CKD4 Hyperkalemia Bladder Ca, b/l hydronephrosis Severe anemia: GI blood loss vs hematuria vs CKD NIDDM HTN Dehydration Diarrhea Con't IVF No intervention for mild increased K W/u anemia revels low iron stores, IV Venofer Off Metformin, since baseline creat ~2.0 avoid nephrotoxins OK to con't Lisinopril Check HA1C, need to lower,Januvia to 50mg/day Resolving MARCIA
[2017-03-14] MEDS: Pantoprazole 40 mg EC Tab PO SCH (09:47)
[2017-03-14] MEDS: levoFLOXacin 250 mg in D5W 250 MG/50 ML BAG IVPB SCH (09:49)
--- NOTE | 2017-03-14 09:56 | CP.PCM.PN ---
<Bethany Mendoza - Last Filed: 03/14/17 11:05> Subjective - Date & Time of Evaluation Date of Evaluation: 03/14/17 Time of Evaluation: 09:51 - Subjective Subjective: PGY-[address] Otoole Pt was resting in bed comfortably Complaint of cough with sputum, whitish Objective - Vital Signs/Intake and Output Vital Signs (last 24 hours): Temp Pulse Resp BP Pulse Ox 98.4 F 69 19 125/55 L 94 L 03/14/17 06:00 03/14/17 06:00 03/14/17 06:00 03/14/17 06:00 03/13/17 06:00 Intake and Output: 03/14/17 03/14/17 06:59 18:59 Intake Total 0 Output Total 700 Balance -700 - Medications Medications: Current Medications Amiodarone HCl (Cordarone) 200 mg PO QAM [facility] Last Admin: 03/13/17 09:29 Dose: 200 mg Atorvastatin Calcium (Lipitor) 20 mg PO DAILY [facility] Last Admin: 03/13/17 09:29 Dose: 20 mg Carvedilol (Coreg) 3.125 mg PO DAILY [facility] Last Admin: 03/13/17 09:28 Dose: 3.125 mg Ferrous Sulfate (Feosol) 324 mg PO DAILY [facility] Last Admin: 03/13/17 09:28 Dose: 324 mg Dextrose/Sodium Chloride (Dextrose 5%/0.9% Ns 1000 Ml) 1,000 mls @ 80 mls/hr IV .[id number] [facility] Last Admin: 03/13/17 15:15 Dose: 80 mls/hr Iron Sucrose 200 mg/ Sodium (Chloride) 110 mls @ 110 mls/hr IVPB DAILY [facility] Stop: 03/18/17 10:59 Levofloxacin/Dextrose (Levaquin 250mg) 250 mg in 50 mls @ 100 mls/hr IVPB Q48H [facility] Lisinopril (Zestril) 10 mg PO QAM [facility] Last Admin: 03/13/17 09:28 Dose: 10 mg Pantoprazole Sodium (Protonix Ec Tab) 40 mg PO QAM [facility] Last Admin: 03/13/17 09:29 Dose: 40 mg Sitagliptin Phosphate (Januvia) 100 mg PO DAILY [facility] Last Admin: 03/13/17 09:33 Dose: 100 mg Tamsulosin HCl (Flomax) 0.4 mg PO DAILY [facility] Last Admin: 03/13/17 09:27 Dose: 0.4 mg - Labs Labs: 03/14/17 07:00 03/14/17 07:00 PT 11.9 Seconds (9.9-11.8) H 03/10/17 21:20 INR 1.10 (0.93-1.08) H 03/10/17 21:20 APTT 32.9 Seconds (23.7-30.8) H 03/10/17 21:20 - Constitutional Appears: No Acute Distress - Head Exam Head Exam: ATRAUMATIC, NORMAL INSPECTION, NORMOCEPHALIC - Eye Exam Eye Exam: EOMI, Normal appearance - ENT Exam ENT Exam: Mucous Membranes Moist - Respiratory Exam Respiratory Exam: Decreased Breath Sounds (all lung vogt. No eagophony), Clear to Ausculation Bilateral. absent: Rales, Rhonchi, Wheezes - Cardiovascular Exam Cardiovascular Exam: REGULAR RHYTHM, +S1, +S2 - GI/Abdominal Exam GI & Abdominal Exam: Soft, Normal Bowel Sounds. absent: Guarding, Rigid, Tenderness - Exam Additional comments: urine yellow - Extremities Exam Extremities Exam: absent: Calf Tenderness, Pedal Edema - Neurological Exam Neurological Exam: Alert, Awake, Oriented x3 - Psychiatric Exam Psychiatric exam: Normal Affect, Normal Mood - Skin Skin Exam: Dry, Warm Assessment and Plan - Assessment and Plan (Free Text) Plan: 86 year old male presents to the emergency room complaining of uncontrollable diarrhea of about 5 - 10 times a day. He has transitional cell bladder carcinoma (s/p RT), Hx anemia and blood transfusions. As for GI, 15 - 18 polyps removed on colonoscopy a few years ago; On 07/2016, EGD neg and colonoscopy one cecal polyp removed benign. He is also survivor of CPR in the field in 2013 leading to PTCA, HTN, NIDDM. Severe microcytic anemia: GI blood loss vs hematuria vs CKD - Hb rises from 7 to 9.4 s/p 2u PRBC (03/11) - Hb 8.6 (8.4) - on Venofar IV; feosol 325 daily - pending stool for occult blood Urosepsis vs bronchitis presumed, on levaquin IV - repeat CXR - add tessalon Hx bladder ca with new Left hydronephrosis and 7 mm ureteral calculus - flomax persistent diarrhea Now constipated, now BM x 5 days - stool culture :(+) gram negative mandeep - Cdiff negative NIDDM - pending a1c MARCIA on CKD - baseline creatinine 2 - avoid nephrotoxins - Off Metformin - OK to con't Lisinopril per nephro - Check HA1C, need to lower,Januvia to 50mg/day - Resolving MARCIA Hx CAD s/p PCI - amiodarone, lopitor, coreg,lisiniprol Prophylaixs - PPI - SCD s/r/d/w Dr. Otoole <Marguerite Otoole P - Last Filed: 03/16/17 20:02> Objective - Vital Signs/Intake and Output Vital Signs (last 24 hours): Temp Pulse Resp BP Pulse Ox 97.4 F L 67 18 111/54 L 98 03/16/17 16:00 03/16/17 16:00 03/16/17 16:00 03/16/17 16:00 03/16/17 16:00 - Medications Medications: Current Medications Acetaminophen (Tylenol 325mg Tab) 650 mg PO Q4H PRN PRN Reason: fever > 100.5 Last Admin: 03/16/17 09:11 Dose: 650 mg Amiodarone HCl (Cordarone) 200 mg PO QAM [facility] Last Admin: 03/16/17 09:15 Dose: 200 mg Atorvastatin Calcium (Lipitor) 20 mg PO DAILY [facility] Last Admin: 03/16/17 09:14 Dose: 20 mg Bacitracin (Bacitracin) 1 ea TOP DAILY [facility] Last Admin: 03/16/17 09:13 Dose: 1 ea Benzonatate (Tessalon Perles) 100 mg PO TID [facility] Last Admin: 03/16/17 18:42 Dose: 100 mg Carvedilol (Coreg) 3.125 mg PO DAILY [facility] Last Admin: 03/16/17 09:14 Dose: 3.125 mg Docusate Sodium (Colace) 100 mg PO BID [facility] Last Admin: 03/16/17 17:58 Dose: 100 mg Dextrose/Sodium Chloride (Dextrose 5%/0.9% Ns 1000 Ml) 1,000 mls @ 80 mls/hr IV .[id number] [facility] Last Admin: 03/16/17 03:09 Dose: 80 mls/hr Iron Sucrose 200 mg/ Sodium (Chloride) 110 mls @ 110 mls/hr IVPB DAILY [facility] Stop: 03/18/17 10:59 Last Admin: 03/16/17 09:15 Dose: 110 mls/hr Levofloxacin/Dextrose (Levaquin 250mg) 250 mg in 50 mls @ 100 mls/hr IVPB Q48H [facility] Last Admin: 03/16/17 09:12 Dose: 100 mls/hr Sodium Chloride (Sodium Chloride 0.45%) 1,000 mls @ 80 mls/hr IV .[id number] [facility] Stop: 03/17/17 18:00 Last Admin: 03/16/17 18:00 Dose: 80 mls/hr Lisinopril (Zestril) 10 mg PO QAM [facility] Last Admin: 03/16/17 09:15 Dose: 10 mg Pantoprazole Sodium (Protonix Ec Tab) 40 mg PO QAM [facility] Last Admin: 03/16/17 09:14 Dose: 40 mg Sitagliptin Phosphate (Januvia) 50 mg PO DAILY [facility] Last Admin: 03/16/17 09:14 Dose: 50 mg Tamsulosin HCl (Flomax) 0.4 mg PO DAILY [facility] Last Admin: 03/16/17 09:14 Dose: 0.4 mg - Labs Labs: 03/16/17 06:30 03/16/17 06:30 PT 13.6 Seconds (9.9-11.8) H 03/15/17 11:00 INR 1.26 (0.93-1.08) H 03/15/17 11:00 APTT 44.1 Seconds (23.7-30.8) H 03/15/17 11:00 Attending/Attestation - Attestation I have personally seen and examined this patient.: Yes I have fully participated in the care of the patient.: Yes I have reviewed all pertinent clinical information, including history, physical exam and plan: Yes
--- NOTE | 2017-03-14 10:52 | CP.PCM.PN ---
<Sita,Kovil V - Last Filed: 03/14/17 23:37> Objective - Vital Signs/Intake and Output Vital Signs (last 24 hours): Temp Pulse Resp BP Pulse Ox 99.7 F H 75 24 118/65 97 03/14/17 16:00 03/14/17 16:00 03/14/17 16:00 03/14/17 16:00 03/14/17 16:00 Intake and Output: 03/14/17 03/15/17 18:59 06:59 Intake Total 300 Output Total 150 Balance 150 - Medications Medications: Current Medications Acetaminophen (Tylenol 325mg Tab) 650 mg PO Q4H PRN PRN Reason: fever > 100.5 Amiodarone HCl (Cordarone) 200 mg PO QAM [facility] Last Admin: 03/14/17 09:48 Dose: 200 mg Atorvastatin Calcium (Lipitor) 20 mg PO DAILY [facility] Last Admin: 03/14/17 11:30 Dose: 20 mg Bacitracin (Bacitracin) 1 ea TOP DAILY [facility] Last Admin: 03/14/17 14:26 Dose: 1 ea Benzonatate (Tessalon Perles) 100 mg PO TID [facility] Last Admin: 03/14/17 18:44 Dose: 100 mg Carvedilol (Coreg) 3.125 mg PO DAILY [facility] Last Admin: 03/14/17 09:48 Dose: 3.125 mg Ferrous Sulfate (Feosol) 324 mg PO DAILY [facility] Last Admin: 03/14/17 09:47 Dose: 324 mg Dextrose/Sodium Chloride (Dextrose 5%/0.9% Ns 1000 Ml) 1,000 mls @ 80 mls/hr IV .[id number] [facility] Last Admin: 03/14/17 20:04 Dose: 80 mls/hr Iron Sucrose 200 mg/ Sodium (Chloride) 110 mls @ 110 mls/hr IVPB DAILY [facility] Stop: 03/18/17 10:59 Last Admin: 03/14/17 11:31 Dose: 110 mls/hr Levofloxacin/Dextrose (Levaquin 250mg) 250 mg in 50 mls @ 100 mls/hr IVPB Q48H [facility] Last Admin: 03/14/17 09:49 Dose: 100 mls/hr Lisinopril (Zestril) 10 mg PO QAM [facility] Last Admin: 03/14/17 09:46 Dose: 10 mg Pantoprazole Sodium (Protonix Ec Tab) 40 mg PO QAM [facility] Last Admin: 03/14/17 09:47 Dose: 40 mg Sitagliptin Phosphate (Januvia) 100 mg PO DAILY [facility] Last Admin: 03/14/17 09:46 Dose: 100 mg Tamsulosin HCl (Flomax) 0.4 mg PO DAILY [facility] Last Admin: 03/14/17 09:47 Dose: 0.4 mg - Labs Labs: 03/14/17 07:00 03/14/17 07:00 PT 11.9 Seconds (9.9-11.8) H 03/10/17 21:20 INR 1.10 (0.93-1.08) H 03/10/17 21:20 APTT 32.9 Seconds (23.7-30.8) H 03/10/17 21:20 <Beatriz Heredia - Last Filed: 03/15/17 11:42> Subjective - Date & Time of Evaluation Date of Evaluation: 03/14/17 Time of Evaluation: 09:15 - Subjective Subjective: S&# at bedside, chart reviewed, no sob, cp, n/v or abdominal pain. No reports of acute overnight events. No reports of diarrhea. tolerating breakfast. Stool culture final result negative. Objective - Vital Signs/Intake and Output Vital Signs (last 24 hours): Temp Pulse Resp BP Pulse Ox 98.4 F 75 19 135/61 94 L 03/14/17 06:00 03/14/17 09:48 03/14/17 06:00 03/14/17 09:48 03/13/17 06:00 Intake and Output: 03/14/17 03/14/17 06:59 18:59 Intake Total 0 Output Total 700 Balance -700 - Medications Medications: Current Medications Amiodarone HCl (Cordarone) 200 mg PO QAM [facility] Last Admin: 03/14/17 09:48 Dose: 200 mg Atorvastatin Calcium (Lipitor) 20 mg PO DAILY [facility] Last Admin: 03/13/17 09:29 Dose: 20 mg Benzonatate (Tessalon Perles) 100 mg PO TID [facility] Carvedilol (Coreg) 3.125 mg PO DAILY [facility] Last Admin: 03/14/17 09:48 Dose: 3.125 mg Ferrous Sulfate (Feosol) 324 mg PO DAILY [facility] Last Admin: 03/14/17 09:47 Dose: 324 mg Dextrose/Sodium Chloride (Dextrose 5%/0.9% Ns 1000 Ml) 1,000 mls @ 80 mls/hr IV .[id number] [facility] Last Admin: 03/13/17 15:15 Dose: 80 mls/hr Iron Sucrose 200 mg/ Sodium (Chloride) 110 mls @ 110 mls/hr IVPB DAILY [facility] Stop: 03/18/17 10:59 Levofloxacin/Dextrose (Levaquin 250mg) 250 mg in 50 mls @ 100 mls/hr IVPB Q48H [facility] Last Admin: 03/14/17 09:49 Dose: 100 mls/hr Lisinopril (Zestril) 10 mg PO QAM [facility] Last Admin: 03/14/17 09:46 Dose: 10 mg Pantoprazole Sodium (Protonix Ec Tab) 40 mg PO QAM [facility] Last Admin: 03/14/17 09:47 Dose: 40 mg Sitagliptin Phosphate (Januvia) 100 mg PO DAILY [facility] Last Admin: 03/14/17 09:46 Dose: 100 mg Tamsulosin HCl (Flomax) 0.4 mg PO DAILY [facility] Last Admin: 03/14/17 09:47 Dose: 0.4 mg - Labs Labs: 03/14/17 07:00 03/14/17 07:00 PT 11.9 Seconds (9.9-11.8) H 03/10/17 21:20 INR 1.10 (0.93-1.08) H 03/10/17 21:20 APTT 32.9 Seconds (23.7-30.8) H 03/10/17 21:20 - Constitutional Appears: No Acute Distress - Head Exam Additional comments: large black dry scab on scalp - ENT Exam ENT Exam: Mucous Membranes Moist - Neck Exam Neck Exam: Normal Inspection - Respiratory Exam Respiratory Exam: NORMAL BREATHING PATTERN. absent: Respiratory Distress - Cardiovascular Exam Cardiovascular Exam: +S1, +S2 - GI/Abdominal Exam GI & Abdominal Exam: Soft, Normal Bowel Sounds. absent: Guarding, Tenderness, Rebound - Extremities Exam Extremities Exam: absent: Calf Tenderness, Pedal Edema - Neurological Exam Neurological Exam: Alert, Awake, Oriented x3 - Skin Skin Exam: Dry, Warm Assessment and Plan - Assessment and Plan (Free Text) Assessment: Assessment: Anemia sp transfusion Hct stable/EGD neg and colonoscopy one cecal polyp removed benign, last in JUL 2016 H/O Colon polyp Bladder cancer sp RT left hydronephrosis CKD CAD UTI ct scan report reviewed,? vesicocolic fistula, will review with radiologist Plan: Followup hb /hct stool for occult blood likely source less likely GI continue PPI on Iron supplement On Levaquin diet as tolerated urology FU Seen and discussed with Dr. Buckner.
[2017-03-14] MEDS: Bacitracin 500 Units/gm Oint Foilpak UD TOP SCH (14:26)
--- NOTE | 2017-03-14 15:34 | RAD ---
HISTORY: r/o PNA, worsening cough COMPARISON: 03/10/2017 TECHNIQUE: Chest PA and lateral FINDINGS: LUNGS: There is a patchy infiltrate at the right lung base PLEURA: No significant pleural effusion identified. No pneumothorax apparent. CARDIOVASCULAR: Mild cardiomegaly OSSEOUS STRUCTURES: No significant abnormalities. VISUALIZED UPPER ABDOMEN: Normal. OTHER FINDINGS: None. IMPRESSION: Patchy infiltrate at the right lung base
[2017-03-14] MEDS: Dextrose 5%/0.9% NS 1,000 ML IV SCH (20:04)
--- NOTE | 2017-03-14 23:21 | CP.PCM.PN ---
Subjective - Date & Time of Evaluation Date of Evaluation: 03/14/17 Time of Evaluation: 12:00 - Subjective Subjective: hospital dictation system down. Pt seen this monday noon hour in 2R awake, alert NAD Objective - Vital Signs/Intake and Output Vital Signs (last 24 hours): Temp Pulse Resp BP Pulse Ox 99.7 F H 75 24 118/65 97 03/14/17 16:00 03/14/17 16:00 03/14/17 16:00 03/14/17 16:00 03/14/17 16:00 Intake and Output: 03/14/17 03/15/17 18:59 06:59 Intake Total 300 Output Total 150 Balance 150 - Medications Medications: Current Medications Acetaminophen (Tylenol 325mg Tab) 650 mg PO Q4H PRN PRN Reason: fever > 100.5 Amiodarone HCl (Cordarone) 200 mg PO QAM [facility] Last Admin: 03/14/17 09:48 Dose: 200 mg Atorvastatin Calcium (Lipitor) 20 mg PO DAILY [facility] Last Admin: 03/14/17 11:30 Dose: 20 mg Bacitracin (Bacitracin) 1 ea TOP DAILY [facility] Last Admin: 03/14/17 14:26 Dose: 1 ea Benzonatate (Tessalon Perles) 100 mg PO TID [facility] Last Admin: 03/14/17 18:44 Dose: 100 mg Carvedilol (Coreg) 3.125 mg PO DAILY [facility] Last Admin: 03/14/17 09:48 Dose: 3.125 mg Ferrous Sulfate (Feosol) 324 mg PO DAILY [facility] Last Admin: 03/14/17 09:47 Dose: 324 mg Dextrose/Sodium Chloride (Dextrose 5%/0.9% Ns 1000 Ml) 1,000 mls @ 80 mls/hr IV .[id number] [facility] Last Admin: 03/14/17 20:04 Dose: 80 mls/hr Iron Sucrose 200 mg/ Sodium (Chloride) 110 mls @ 110 mls/hr IVPB DAILY [facility] Stop: 03/18/17 10:59 Last Admin: 03/14/17 11:31 Dose: 110 mls/hr Levofloxacin/Dextrose (Levaquin 250mg) 250 mg in 50 mls @ 100 mls/hr IVPB Q48H [facility] Last Admin: 03/14/17 09:49 Dose: 100 mls/hr Lisinopril (Zestril) 10 mg PO QAM [facility] Last Admin: 03/14/17 09:46 Dose: 10 mg Pantoprazole Sodium (Protonix Ec Tab) 40 mg PO QAM [facility] Last Admin: 03/14/17 09:47 Dose: 40 mg Sitagliptin Phosphate (Januvia) 100 mg PO DAILY [facility] Last Admin: 03/14/17 09:46 Dose: 100 mg Tamsulosin HCl (Flomax) 0.4 mg PO DAILY [facility] Last Admin: 03/14/17 09:47 Dose: 0.4 mg - Labs Labs: 03/14/17 07:00 03/14/17 07:00 PT 11.9 Seconds (9.9-11.8) H 03/10/17 21:20 INR 1.10 (0.93-1.08) H 03/10/17 21:20 APTT 32.9 Seconds (23.7-30.8) H 03/10/17 21:20 - Constitutional Appears: Non-toxic - Head Exam Head Exam: absent: ATRAUMATIC - Eye Exam Eye Exam: Normal appearance Pupil Exam: NORMAL ACCOMODATION - ENT Exam ENT Exam: Mucous Membranes Moist - Neck Exam Neck Exam: Full ROM - Respiratory Exam Respiratory Exam: Clear to Ausculation Bilateral, Prolonged Expiratory Phase - Cardiovascular Exam Cardiovascular Exam: REGULAR RHYTHM - GI/Abdominal Exam GI & Abdominal Exam: Soft, Normal Bowel Sounds - Exam External exam: Ecchymosis - Skin Skin Exam: Dry, Warm Assessment and Plan - Assessment and Plan (Free Text) Plan: matted crust and scab removed from scalp will reach out to Interv. Rad. as discussed w last week re percut nephrostomy tube and ureteral stent prior to cysto and tu excision
[2017-03-15] MEDS: Dextrose 5%/0.9% NS 1,000 ML IV SCH ×2 (05:23→05:25)
[2017-03-15] MEDS ORDERED: POLYETHYLENE GLYCOL 3350 17 GM/Dose PACKET PO ONE (09:27)
[2017-03-15] MEDS: Pantoprazole 40 mg EC Tab PO SCH (10:50)
[2017-03-15] MEDS: Bacitracin 500 Units/gm Oint Foilpak UD TOP SCH (10:52)
[2017-03-15 11:24] LABS: BASO # 0.01 K/mm3 (0.0-2.0); BASO % 0.1 % (0.0-3.0); EOS # 0.1 (0.0-0.7); EOS % 0.9 % (1.5-5.0); GRAN # 8.11 (1.4-6.5); GRAN % 91.2 % (50.0-68.0); LYMPH # 0.3 (1.2-3.4); MEAN CELL VOLUME 75.1 fL (80.0-105.0); MEAN CORPUSCULAR HGB CONC 29.2 g/dl (31.0-37.0); MEAN PLATELET VOLUME 8.4 fl (7.0-11.0); MONO # 0.4 (0.1-0.6); MONO % 4.8 % (1.0-6.0); PLATELET COUNT 147 10^3/uL (120.0-450.0); RBC 3.46 10^6/uL (3.5-6.1); RED CELL DISTRIBUTION WIDTH 22.1 % (11.5-14.5); WHITE BLOOD COUNT 8.9 10^3/ul (4.5-11.0)
[2017-03-15 11:28] LABS: HEMOGLOBIN 7.6 gm/dL (14.0-18.0)
[2017-03-15 11:34] LABS: INR 1.26 (0.93-1.08); PARTIAL THROMBOPLASTIN TIME 44.1 Seconds (23.7-30.8); PROTHROMBIN TIME 13.6 Seconds (9.9-11.8)
[2017-03-15 11:38] LABS: ALB/GLOB RATIO 0.8 (1.1-1.8); CALCIUM 7.7 mg/dL (8.4-10.5)
--- NOTE | 2017-03-15 12:15 | CP.PCM.PN ---
<Beatriz Heredia - Last Filed: 03/15/17 12:14> Subjective - Date & Time of Evaluation Date of Evaluation: 03/15/17 Time of Evaluation: 09:10 - Subjective Subjective: S&E at bedside, ate breakfast well. No reported BM although as per PTC patient request for bedpan but no BM. No abdominal pain, N/V, SOB or chest pain. No reports of overt GI bleed. Objective - Vital Signs/Intake and Output Vital Signs (last 24 hours): Temp Pulse Resp BP Pulse Ox 97.8 F 58 L 22 115/57 L 97 03/15/17 08:34 03/15/17 08:34 03/15/17 08:34 03/15/17 08:34 03/15/17 08:34 Intake and Output: 03/15/17 03/15/17 06:59 18:59 Intake Total 2220 Output Total 150 Balance 2070 - Medications Medications: Current Medications Acetaminophen (Tylenol 325mg Tab) 650 mg PO Q4H PRN PRN Reason: fever > 100.5 Amiodarone HCl (Cordarone) 200 mg PO QAM [facility] Last Admin: 03/14/17 09:48 Dose: 200 mg Atorvastatin Calcium (Lipitor) 20 mg PO DAILY [facility] Last Admin: 03/14/17 11:30 Dose: 20 mg Bacitracin (Bacitracin) 1 ea TOP DAILY [facility] Last Admin: 03/14/17 14:26 Dose: 1 ea Benzonatate (Tessalon Perles) 100 mg PO TID [facility] Last Admin: 03/14/17 18:44 Dose: 100 mg Carvedilol (Coreg) 3.125 mg PO DAILY [facility] Last Admin: 03/14/17 09:48 Dose: 3.125 mg Docusate Sodium (Colace) 100 mg PO BID [facility] Dextrose/Sodium Chloride (Dextrose 5%/0.9% Ns 1000 Ml) 1,000 mls @ 80 mls/hr IV .[id number] [facility] Last Admin: 03/15/17 05:25 Dose: 80 mls/hr Iron Sucrose 200 mg/ Sodium (Chloride) 110 mls @ 110 mls/hr IVPB DAILY [facility] Stop: 03/18/17 10:59 Last Admin: 03/14/17 11:31 Dose: 110 mls/hr Levofloxacin/Dextrose (Levaquin 250mg) 250 mg in 50 mls @ 100 mls/hr IVPB Q48H [facility] Last Admin: 03/14/17 09:49 Dose: 100 mls/hr Lisinopril (Zestril) 10 mg PO QAM [facility] Last Admin: 03/14/17 09:46 Dose: 10 mg Pantoprazole Sodium (Protonix Ec Tab) 40 mg PO QAM [facility] Last Admin: 03/14/17 09:47 Dose: 40 mg Sitagliptin Phosphate (Januvia) 100 mg PO DAILY [facility] Last Admin: 03/14/17 09:46 Dose: 100 mg Tamsulosin HCl (Flomax) 0.4 mg PO DAILY [facility] Last Admin: 03/14/17 09:47 Dose: 0.4 mg - Labs Labs: 03/14/17 07:00 03/14/17 07:00 PT 11.9 Seconds (9.9-11.8) H 03/10/17 21:20 INR 1.10 (0.93-1.08) H 03/10/17 21:20 APTT 32.9 Seconds (23.7-30.8) H 03/10/17 21:20 - Constitutional Appears: No Acute Distress - Eye Exam Eye Exam: Normal appearance. absent: Scleral icterus - ENT Exam ENT Exam: Mucous Membranes Moist - Neck Exam Neck Exam: Normal Inspection - Respiratory Exam Respiratory Exam: NORMAL BREATHING PATTERN. absent: Respiratory Distress - Cardiovascular Exam Cardiovascular Exam: +S1, +S2 - GI/Abdominal Exam GI & Abdominal Exam: Soft, Normal Bowel Sounds. absent: Guarding, Tenderness, Rebound - Extremities Exam Extremities Exam: absent: Calf Tenderness, Pedal Edema - Neurological Exam Neurological Exam: Alert, Awake, Oriented x3 - Skin Skin Exam: Dry, Warm Assessment and Plan - Assessment and Plan (Free Text) Assessment: Anemia sp transfusion Hct stable/EGD neg and colonoscopy one cecal polyp removed benign, last in JUL 2016 H/O Colon polyp Bladder cancer sp RT left hydronephrosis CKD CAD UTI Plan: start colace and give dose of miralax Followup hb /hct stool for occult blood continue PPI on Iron supplement On Levaquin diet as tolerated plan for nephrostomy tube/urethral stent as per IR and urology reviewed ct scan w/Dr. Bloom regarding white area noted in bladder , when films were reviewed with Dr. Merle Mcginnis compared with previous and more of calcification rather than a fistula. Seen and discussed with Dr. Buckner. <Kary Buckner V - Last Filed: 03/15/17 21:42> Objective - Vital Signs/Intake and Output Vital Signs (last 24 hours): Temp Pulse Resp BP Pulse Ox 98.1 F 57 L 16 120/62 98 03/15/17 18:23 03/15/17 18:23 03/15/17 18:23 03/15/17 18:23 03/15/17 16:00 Intake and Output: 03/15/17 03/16/17 18:59 06:59 Intake Total 335 Balance 335 - Medications Medications: Current Medications Acetaminophen (Tylenol 325mg Tab) 650 mg PO Q4H PRN PRN Reason: fever > 100.5 Amiodarone HCl (Cordarone) 200 mg PO QAM [facility] Last Admin: 03/15/17 10:50 Dose: 200 mg Atorvastatin Calcium (Lipitor) 20 mg PO DAILY [facility] Last Admin: 03/15/17 10:51 Dose: 20 mg Bacitracin (Bacitracin) 1 ea TOP DAILY [facility] Last Admin: 03/15/17 10:52 Dose: 1 ea Benzonatate (Tessalon Perles) 100 mg PO TID [facility] Last Admin: 03/15/17 17:50 Dose: 100 mg Carvedilol (Coreg) 3.125 mg PO DAILY [facility] Last Admin: 03/15/17 10:49 Dose: 3.125 mg Docusate Sodium (Colace) 100 mg PO BID [facility] Last Admin: 03/15/17 17:50 Dose: 100 mg Dextrose/Sodium Chloride (Dextrose 5%/0.9% Ns 1000 Ml) 1,000 mls @ 80 mls/hr IV .[id number] [facility] Last Admin: 03/15/17 05:25 Dose: 80 mls/hr Iron Sucrose 200 mg/ Sodium (Chloride) 110 mls @ 110 mls/hr IVPB DAILY [facility] Stop: 03/18/17 10:59 Last Admin: 03/15/17 10:51 Dose: 110 mls/hr Levofloxacin/Dextrose (Levaquin 250mg) 250 mg in 50 mls @ 100 mls/hr IVPB Q48H [facility] Last Admin: 03/14/17 09:49 Dose: 100 mls/hr Lisinopril (Zestril) 10 mg PO QAM [facility] Last Admin: 03/15/17 10:53 Dose: 10 mg Pantoprazole Sodium (Protonix Ec Tab) 40 mg PO QAM [facility] Last Admin: 03/15/17 10:50 Dose: 40 mg Sitagliptin Phosphate (Januvia) 50 mg PO DAILY [facility] Tamsulosin HCl (Flomax) 0.4 mg PO DAILY [facility] Last Admin: 03/15/17 10:50 Dose: 0.4 mg - Labs Labs: 03/15/17 11:00 03/15/17 11:00 PT 13.6 Seconds (9.9-11.8) H 03/15/17 11:00 INR 1.26 (0.93-1.08) H 03/15/17 11:00 APTT 44.1 Seconds (23.7-30.8) H 03/15/17 11:00 Attending/Attestation - Attestation I have personally seen and examined this patient.: Yes I have fully participated in the care of the patient.: Yes I have reviewed all pertinent clinical information, including history, physical exam and plan: Yes Notes (Text): 03/15/17 21:39 this patient was seen and evaluated earlier. Patient is due for nephrostomy tube placement The CT scan was reviewed with radiologist Dr. Bloom. Radiologically not suggestive of vesicocolic fistula. Only prostate calcifications appear prominent. Patient has bladder cancer history of hematuria this probably accounts for his anemia His previous GI workup reviewed coring had a single polyp in cecum which was tubular adenoma upper GI endoscopy did not reveal any active bleeding source Follow up on the hemoglobin and hematocrit urologist. Oncology follow-up noted
--- NOTE | 2017-03-15 13:12 | CP.PCM.PN ---
Subjective - Date & Time of Evaluation Date of Evaluation: 03/15/17 Time of Evaluation: 12:35 - Subjective Subjective: Lying in bed Comfortable Objective - Vital Signs/Intake and Output Vital Signs (last 24 hours): Temp Pulse Resp BP Pulse Ox 97.8 F 58 L 22 120/71 97 03/15/17 08:34 03/15/17 08:34 03/15/17 08:34 03/15/17 10:53 03/15/17 08:34 Intake and Output: 03/15/17 03/15/17 06:59 18:59 Intake Total 2220 Output Total 150 Balance 0 - Medications Medications: Current Medications Acetaminophen (Tylenol 325mg Tab) 650 mg PO Q4H PRN PRN Reason: fever > 100.5 Amiodarone HCl (Cordarone) 200 mg PO QAM [facility] Last Admin: 03/15/17 10:50 Dose: 200 mg Atorvastatin Calcium (Lipitor) 20 mg PO DAILY [facility] Last Admin: 03/15/17 10:51 Dose: 20 mg Bacitracin (Bacitracin) 1 ea TOP DAILY [facility] Last Admin: 03/15/17 10:52 Dose: 1 ea Benzonatate (Tessalon Perles) 100 mg PO TID [facility] Last Admin: 03/15/17 10:51 Dose: 100 mg Carvedilol (Coreg) 3.125 mg PO DAILY [facility] Last Admin: 03/15/17 10:49 Dose: 3.125 mg Docusate Sodium (Colace) 100 mg PO BID [facility] Last Admin: 03/15/17 10:52 Dose: 100 mg Dextrose/Sodium Chloride (Dextrose 5%/0.9% Ns 1000 Ml) 1,000 mls @ 80 mls/hr IV .[id number] [facility] Last Admin: 03/15/17 05:25 Dose: 80 mls/hr Iron Sucrose 200 mg/ Sodium (Chloride) 110 mls @ 110 mls/hr IVPB DAILY [facility] Stop: 03/18/17 10:59 Last Admin: 03/15/17 10:51 Dose: 110 mls/hr Levofloxacin/Dextrose (Levaquin 250mg) 250 mg in 50 mls @ 100 mls/hr IVPB Q48H [facility] Last Admin: 03/14/17 09:49 Dose: 100 mls/hr Lisinopril (Zestril) 10 mg PO QAM [facility] Last Admin: 03/15/17 10:53 Dose: 10 mg Pantoprazole Sodium (Protonix Ec Tab) 40 mg PO QAM [facility] Last Admin: 03/15/17 10:50 Dose: 40 mg Tamsulosin HCl (Flomax) 0.4 mg PO DAILY [facility] Last Admin: 03/15/17 10:50 Dose: 0.4 mg - Labs Labs: 03/15/17 11:00 03/15/17 11:00 PT 13.6 Seconds (9.9-11.8) H 03/15/17 11:00 INR 1.26 (0.93-1.08) H 03/15/17 11:00 APTT 44.1 Seconds (23.7-30.8) H 03/15/17 11:00 - Constitutional Appears: Chronically Ill - Head Exam Head Exam: NORMAL INSPECTION Additional comments: Dsg on scalp - Eye Exam Eye Exam: Normal appearance, PERRL - ENT Exam ENT Exam: Mucous Membranes Moist - Respiratory Exam Respiratory Exam: Clear to Ausculation Bilateral, NORMAL BREATHING PATTERN - Cardiovascular Exam Cardiovascular Exam: REGULAR RHYTHM, +S1, +S2 - GI/Abdominal Exam GI & Abdominal Exam: Soft, Normal Bowel Sounds - Extremities Exam Extremities Exam: Normal Inspection Assessment and Plan - Assessment and Plan (Free Text) Assessment: Assessment: MARCIA superimposed on CKD4- resolving Hyperkalemia- resolved Bladder Ca, b/l hydronephrosis Severe anemia: hematuria + CKD, Hgb 7.6 NIDDM HTN Dehydration Diarrhea Con't IVF W/u anemia revels low iron stores, con't IV Venofer Off Metformin, since baseline creat ~2.0 avoid nephrotoxins OK to con't Lisinopril Check HA1C, need to lower,Januvia to 50mg/day Resolving MARCIA Transfuse??
--- NOTE | 2017-03-15 14:56 | CP.PCM.PN ---
<Bethany Mendoza - Last Filed: 03/15/17 14:53> Subjective - Date & Time of Evaluation Date of Evaluation: 03/15/17 Time of Evaluation: 08:00 - Subjective Subjective: PGY-[address] Otoole Pt was resting in bed comfortably Complaint of cough with sputum, whitish but improves with tessalon pearels Denies MUNSON, dizziness, CP, sob Objective - Vital Signs/Intake and Output Vital Signs (last 24 hours): Temp Pulse Resp BP Pulse Ox 97.8 F 58 L 22 120/71 97 03/15/17 08:34 03/15/17 08:34 03/15/17 08:34 03/15/17 10:53 03/15/17 08:34 Intake and Output: 03/15/17 03/15/17 06:59 18:59 Intake Total 2220 Output Total 150 Balance 2070 - Medications Medications: Current Medications Acetaminophen (Tylenol 325mg Tab) 650 mg PO Q4H PRN PRN Reason: fever > 100.5 Amiodarone HCl (Cordarone) 200 mg PO QAM [facility] Last Admin: 03/15/17 10:50 Dose: 200 mg Atorvastatin Calcium (Lipitor) 20 mg PO DAILY [facility] Last Admin: 03/15/17 10:51 Dose: 20 mg Bacitracin (Bacitracin) 1 ea TOP DAILY [facility] Last Admin: 03/15/17 10:52 Dose: 1 ea Benzonatate (Tessalon Perles) 100 mg PO TID [facility] Last Admin: 03/15/17 14:44 Dose: 100 mg Carvedilol (Coreg) 3.125 mg PO DAILY [facility] Last Admin: 03/15/17 10:49 Dose: 3.125 mg Docusate Sodium (Colace) 100 mg PO BID [facility] Last Admin: 03/15/17 10:52 Dose: 100 mg Dextrose/Sodium Chloride (Dextrose 5%/0.9% Ns 1000 Ml) 1,000 mls @ 80 mls/hr IV .[id number] [facility] Last Admin: 03/15/17 05:25 Dose: 80 mls/hr Iron Sucrose 200 mg/ Sodium (Chloride) 110 mls @ 110 mls/hr IVPB DAILY [facility] Stop: 03/18/17 10:59 Last Admin: 03/15/17 10:51 Dose: 110 mls/hr Levofloxacin/Dextrose (Levaquin 250mg) 250 mg in 50 mls @ 100 mls/hr IVPB Q48H [facility] Last Admin: 03/14/17 09:49 Dose: 100 mls/hr Lisinopril (Zestril) 10 mg PO QAM [facility] Last Admin: 03/15/17 10:53 Dose: 10 mg Pantoprazole Sodium (Protonix Ec Tab) 40 mg PO QAM [facility] Last Admin: 03/15/17 10:50 Dose: 40 mg Sitagliptin Phosphate (Januvia) 50 mg PO DAILY [facility] Tamsulosin HCl (Flomax) 0.4 mg PO DAILY [facility] Last Admin: 03/15/17 10:50 Dose: 0.4 mg - Labs Labs: 03/15/17 11:00 03/15/17 11:00 PT 13.6 Seconds (9.9-11.8) H 03/15/17 11:00 INR 1.26 (0.93-1.08) H 03/15/17 11:00 APTT 44.1 Seconds (23.7-30.8) H 03/15/17 11:00 - Constitutional Appears: No Acute Distress - Head Exam Head Exam: NORMAL INSPECTION, NORMOCEPHALIC - Eye Exam Eye Exam: EOMI, Normal appearance, PERRL. absent: Scleral icterus Pupil Exam: NORMAL ACCOMODATION - ENT Exam ENT Exam: Mucous Membranes Moist - Respiratory Exam Respiratory Exam: Decreased Breath Sounds (lung bases), Clear to Ausculation Bilateral, Wheezes - Cardiovascular Exam Cardiovascular Exam: REGULAR RHYTHM, +S1, +S2 - GI/Abdominal Exam GI & Abdominal Exam: Distended, Soft, Hypoactive Bowel Sounds - Extremities Exam Extremities Exam: Normal Capillary Refill. absent: Calf Tenderness, Pedal Edema Additional comments: ramos intact, clear yellow urine - Neurological Exam Neurological Exam: Alert, Awake, Oriented x3 - Psychiatric Exam Psychiatric exam: Normal Affect, Normal Mood - Skin Skin Exam: Dry, Warm Assessment and Plan - Assessment and Plan (Free Text) Plan: 86 year old male presents to the emergency room complaining of uncontrollable diarrhea of about 5 - 10 times a day. He has transitional cell bladder carcinoma (s/p RT), Hx anemia and blood transfusions. As for GI, 15 - 18 polyps removed on colonoscopy a few years ago; On 07/2016, EGD neg and colonoscopy one cecal polyp removed benign. He is also survivor of CPR in the field in 2014 leading to PTCA, HTN, NIDDM. Hx bladder ca with new Left hydronephrosis and 7 mm ureteral calculus - flomax - will reach out to IR as discussed w last week re percut nephrostomy tube and ureteral stent prior to cysto and tu excision Severe microcytic anemia: GI blood loss vs hematuria vs CKD - Hb drops to 7.6, will transfuse 1u pRBC - on Venofar IV; feosol 325 daily - pending stool for occult blood Urosepsis vs bronchitis presumed, on levaquin IV - CXR - RLL infiltrate (PNA vs atelactesis) - add tessalon Now constipated, lasr BM 2 days, hypoactive BS persistent diarrhea - resolved - stool culture :(+) gram negative mandeep - Cdiff negative - flat plate to r/o ileus or FRANCI NIDDM - pending a1c - need to lower,Januvia to 50mg/day MARCIA on CKD - baseline creatinine 2 - avoid nephrotoxins - Off Metformin - OK to con't Lisinopril per nephro - Check HA1C, need to lower,Januvia to 50mg/day - Resolving MARCIA Hx CAD s/p PCI - amiodarone, lopitor, coreg,lisiniprol Prophylaixs - PPI - SCD s/r/d/w Dr. Otoole <Marguerite Otoole P - Last Filed: 03/16/17 19:50> Objective - Vital Signs/Intake and Output Vital Signs (last 24 hours): Temp Pulse Resp BP Pulse Ox 97.4 F L 67 18 111/54 L 98 03/16/17 16:00 03/16/17 16:00 03/16/17 16:00 03/16/17 16:00 03/16/17 16:00 - Medications Medications: Current Medications Acetaminophen (Tylenol 325mg Tab) 650 mg PO Q4H PRN PRN Reason: fever > 100.5 Last Admin: 03/16/17 09:11 Dose: 650 mg Amiodarone HCl (Cordarone) 200 mg PO QAM [facility] Last Admin: 03/16/17 09:15 Dose: 200 mg Atorvastatin Calcium (Lipitor) 20 mg PO DAILY [facility] Last Admin: 07/13/17 09:14 Dose: 20 mg Bacitracin (Bacitracin) 1 ea TOP DAILY [facility] Last Admin: 03/16/17 09:13 Dose: 1 ea Benzonatate (Tessalon Perles) 100 mg PO TID [facility] Last Admin: 03/16/17 18:42 Dose: 100 mg Carvedilol (Coreg) 3.125 mg PO DAILY [facility] Last Admin: 03/16/17 09:14 Dose: 3.125 mg Docusate Sodium (Colace) 100 mg PO BID [facility] Last Admin: 03/16/17 17:58 Dose: 100 mg Dextrose/Sodium Chloride (Dextrose 5%/0.9% Ns 1000 Ml) 1,000 mls @ 80 mls/hr IV .[id number] [facility] Last Admin: 03/16/17 03:09 Dose: 80 mls/hr Iron Sucrose 200 mg/ Sodium (Chloride) 110 mls @ 110 mls/hr IVPB DAILY [facility] Stop: 03/18/17 10:59 Last Admin: 03/16/17 09:15 Dose: 110 mls/hr Levofloxacin/Dextrose (Levaquin 250mg) 250 mg in 50 mls @ 100 mls/hr IVPB Q48H [facility] Last Admin: 03/16/17 09:12 Dose: 100 mls/hr Sodium Chloride (Sodium Chloride 0.45%) 1,000 mls @ 80 mls/hr IV .[id number] [facility] Stop: 03/17/17 18:00 Last Admin: 03/16/17 18:00 Dose: 80 mls/hr Lisinopril (Zestril) 10 mg PO QAM [facility] Last Admin: 03/16/17 09:15 Dose: 10 mg Pantoprazole Sodium (Protonix Ec Tab) 40 mg PO QAM [facility] Last Admin: 03/16/17 09:14 Dose: 40 mg Sitagliptin Phosphate (Januvia) 50 mg PO DAILY [facility] Last Admin: 03/16/17 09:14 Dose: 50 mg Tamsulosin HCl (Flomax) 0.4 mg PO DAILY [facility] Last Admin: 03/16/17 09:14 Dose: 0.4 mg - Labs Labs: 03/16/17 06:30 03/16/17 06:30 PT 13.6 Seconds (9.9-11.8) H 03/15/17 11:00 INR 1.26 (0.93-1.08) H 03/15/17 11:00 APTT 44.1 Seconds (23.7-30.8) H 03/15/17 11:00 Attending/Attestation - Attestation I have personally seen and examined this patient.: Yes I have fully participated in the care of the patient.: Yes I have reviewed all pertinent clinical information, including history, physical exam and plan: Yes
[2017-03-15] MEDS ORDERED: DiphenhydrAMINE 50 mg/ml Inj IVP STA (15:07)
[2017-03-16] MEDS: Dextrose 5%/0.9% NS 1,000 ML IV SCH (03:09)
[2017-03-16] MEDS ORDERED: Albuterol-Ipratrop 3 mg / 0.5 (3 ml) UD IH STA (06:13)
--- NOTE | 2017-03-16 06:34 | CP.PCM.PN ---
Subjective - Date & Time of Evaluation Date of Evaluation: 03/16/17 Time of Evaluation: 06:31 - Subjective Subjective: Nurse calls and states that this morning patient is little sob and congested. Patient was seen at bedside. Complaints of little sob, feels little cold. Received 2 unites of PRBC. Denies chest pain. Has no other complaints. Medical record was reviewed. 86 year old white male was admitted with uncontrollable diarrhoea,anemia, leukocytosis, Renal insufficiency, urosepsis. PMH:Anemia, blood transfusion, colnoscopy with polypectomy, S/P PTCA, S/P CPR, HTN, NIDDM Transitional cell bladder cancer, Objective - Vital Signs/Intake and Output Vital Signs (last 24 hours): Temp Pulse Resp BP Pulse Ox 97.9 F 60 18 113/55 L 98 03/16/17 02:50 03/16/17 02:50 03/16/17 02:50 03/16/17 02:50 03/15/17 16:00 Intake and Output: 03/15/17 03/16/17 18:59 06:59 Intake Total 335 540 Output Total 450 Balance 335 90 - Medications Medications: Current Medications Acetaminophen (Tylenol 325mg Tab) 650 mg PO Q4H PRN PRN Reason: fever > 100.5 Amiodarone HCl (Cordarone) 200 mg PO QAM [facility] Last Admin: 03/15/17 10:50 Dose: 200 mg Atorvastatin Calcium (Lipitor) 20 mg PO DAILY [facility] Last Admin: 03/15/17 10:51 Dose: 20 mg Bacitracin (Bacitracin) 1 ea TOP DAILY [facility] Last Admin: 03/15/17 10:52 Dose: 1 ea Benzonatate (Tessalon Perles) 100 mg PO TID [facility] Last Admin: 03/15/17 17:50 Dose: 100 mg Carvedilol (Coreg) 3.125 mg PO DAILY [facility] Last Admin: 03/15/17 10:49 Dose: 3.125 mg Docusate Sodium (Colace) 100 mg PO BID [facility] Last Admin: 03/15/17 17:50 Dose: 100 mg Furosemide (Lasix) 40 mg IVP STAT [facility] Stop: 03/16/17 06:30 Dextrose/Sodium Chloride (Dextrose 5%/0.9% Ns 1000 Ml) 1,000 mls @ 80 mls/hr IV .[id number] [facility] Last Admin: 03/16/17 03:09 Dose: 80 mls/hr Iron Sucrose 200 mg/ Sodium (Chloride) 110 mls @ 110 mls/hr IVPB DAILY [facility] Stop: 03/18/17 10:59 Last Admin: 03/15/17 10:51 Dose: 110 mls/hr Levofloxacin/Dextrose (Levaquin 250mg) 250 mg in 50 mls @ 100 mls/hr IVPB Q48H [facility] Last Admin: 03/14/17 09:49 Dose: 100 mls/hr Lisinopril (Zestril) 10 mg PO QAM [facility] Last Admin: 03/15/17 10:53 Dose: 10 mg Pantoprazole Sodium (Protonix Ec Tab) 40 mg PO QAM [facility] Last Admin: 03/15/17 10:50 Dose: 40 mg Sitagliptin Phosphate (Januvia) 50 mg PO DAILY [facility] Tamsulosin HCl (Flomax) 0.4 mg PO DAILY [facility] Last Admin: 03/15/17 10:50 Dose: 0.4 mg - Labs Labs: 03/15/17 11:00 03/15/17 11:00 PT 13.6 Seconds (9.9-11.8) H 03/15/17 11:00 INR 1.26 (0.93-1.08) H 03/15/17 11:00 APTT 44.1 Seconds (23.7-30.8) H 03/15/17 11:00 Laboratory Last Values WBC 8.9 10^3/ul (4.5-11.0) D 03/15/17 11:00 RBC 3.46 10^6/uL (3.5-6.1) L 03/15/17 11:00 Hgb 7.6 gm/dL (14.0-18.0) L 03/15/17 11:00 Hct 26.0 % (42.0-52.0) L 03/15/17 11:00 MCV 75.1 fL (80.0-105.0) L 03/15/17 11:00 MCH 22.0 pg (25.0-35.0) L 03/15/17 11:00 MCHC 29.2 g/dl (31.0-37.0) L 03/15/17 11:00 RDW 22.1 % (11.5-14.5) H 03/15/17 11:00 Plt Count 147 10^3/uL (120.0-450.0) 03/15/17 11:00 MPV 8.4 fl (7.0-11.0) 03/15/17 11:00 Gran % 91.2 % (50.0-68.0) H 03/15/17 11:00 Lymph % (Auto) 3.0 % (22.0-35.0) L 03/15/17 11:00 [place] % (Auto) 4.8 % (1.0-6.0) 03/15/17 11:00 Eos % (Auto) 0.9 % (1.5-5.0) L 03/15/17 11:00 Baso % (Auto) 0.1 % (0.0-3.0) 03/15/17 11:00 Gran # 8.11 (1.4-6.5) H 03/15/17 11:00 Lymph # 0.3 (1.2-3.4) L 03/15/17 11:00 [place]clean # 0.4 (0.1-0.6) 03/15/17 11:00 Eos # 0.1 (0.0-0.7) 03/15/17 11:00 Baso # 0.01 K/mm3 (0.0-2.0) 03/15/17 11:00 Neutrophils % (Manual) 90 % (50.0-70.0) H 03/10/17 21:20 Band Neutrophils % 5 % (0-2) H 03/10/17 21:20 Lymphocytes % (Manual) 3 % (22.0-35.0) L 03/10/17 21:20 Monocytes % (Manual) 2 % (1.0-6.0) 03/10/17 21:20 Platelet Evaluation Normal (NORMAL) 03/10/17 21:20 Hypochromasia 2+ 03/10/17 21:20 PT 13.6 Seconds (9.9-11.8) H 03/15/17 11:00 INR 1.26 (0.93-1.08) H 03/15/17 11:00 APTT 44.1 Seconds (23.7-30.8) H 03/15/17 11:00 pCO2 37 mm/Hg (35-45) 03/12/17 00:30 pO2 69.0 mm/Hg (80-100) L 03/12/17 00:30 HCO3 17.0 mmol/L (21-28) L 03/12/17 00:30 ABG pH 7.27 (7.35-7.45) L 03/12/17 00:30 ABG Total CO2 18.1 mmol.L (22-28) L 03/12/17 00:30 ABG O2 Saturation 95.3 % (95-98) 03/12/17 00:30 ABG O2 Content 11.1 ML/dl (15-23) L 03/12/17 00:30 ABG Base Excess -9.1 mmol/L (-2.0-3.0) L 03/12/17 00:30 ABG Hemoglobin 8.5 g/dL (11.7-17.4) L 03/12/17 00:30 ABG Carboxyhemoglobin 2.4 % (0.5-1.5) H 03/12/17 00:30 POC ABG HHb (Measured) 4.5 % (0-5) 03/12/17 00:30 ABG Methemoglobin 1.1 % (0.0-3.0) 03/12/17 00:30 ABG O2 Capacity 11.6 mL/dl (16-24) L 03/12/17 00:30 Hgb O2 Saturation 92.0 % (95.0-98.0) L 03/12/17 00:30 FiO2 32.0 % 03/12/17 00:30 Sodium 134 mmol/L (132-148) 03/15/17 11:00 Potassium 4.9 mmol/L (3.6-5.0) 03/15/17 11:00 Chloride 110 mmol/L (98-107) H 03/15/17 11:00 Carbon Dioxide 19 mmol/L (21-33) L 03/15/17 11:00 Anion Gap 10 (10-20) 03/15/17 11:00 BUN 30 mg/dL (7-21) H 03/15/17 11:00 Creatinine 2.8 mg/dL (0.5-1.4) H 03/15/17 11:00 Est GFR ( Amer) 26 03/15/17 11:00 Est GFR (Non-Af Amer) 21 03/15/17 11:00 POC Glucose (mg/dL) 240 mg/dL (65-110) H 03/14/17 11:18 Random Glucose 216 mg/dL (70-110) H 03/15/17 11:00 Hemoglobin A1c 6.9 % (4.2-6.5) H 03/14/17 07:30 Calcium 7.7 mg/dL (8.4-10.5) L 03/15/17 11:00 Iron 10 ug/dL (45-180) L 03/13/17 07:00 TIBC 187 ug/dL (261-462) L 03/13/17 07:00 % Saturation 5 % (20-55) L 03/13/17 07:00 Ferritin 46.4 ng/mL 03/13/17 07:00 Total Bilirubin 0.3 mg/dL (0.2-1.3) 03/15/17 11:00 AST 20 U/L (15-59) 03/15/17 11:00 ALT 23 U/L (7-56) 03/15/17 11:00 Alkaline Phosphatase 111 U/L (38-133) 03/15/17 11:00 Lactate Dehydrogenase 408 U/L (333-699) 03/10/17 21:20 Total Creatine Kinase 43 U/L (35-230) 03/10/17 21:20 Troponin I < 0.01 ng/mL D 03/10/17 21:20 Total Protein 4.4 g/dL (5.8-8.3) L 03/15/17 11:00 Albumin 2.0 g/dL (3.0-4.8) L 03/15/17 11:00 Globulin 2.4 gm/dL 03/15/17 11:00 Albumin/Globulin Ratio 0.8 (1.1-1.8) L 03/15/17 11:00 Lipase 31 U/L (23-300) 03/10/17 21:20 Urine Color Yellow (YELLOW) 03/13/17 16:35 Urine Appearance Cloudy (CLEAR) 03/13/17 16:35 Urine pH 6.0 (4.7-8.0) 03/13/17 16:35 Ur Specific [place] 1.025 (1.005-1.035) 03/13/17 16:35 Urine Protein 100 mg/dL (<30 mg/dL) H 03/13/17 16:35 Urine Glucose (UA) 250 mg/dL (NEGATIVE) H 03/13/17 16:35 Urine Ketones Negative mg/dL (NEGATIVE) 03/13/17 16:35 Urine Blood Large (NEGATIVE) H 03/13/17 16:35 Urine Nitrate Negative (NEGATIVE) 03/13/17 16:35 Urine Bilirubin Negative (NEGATIVE) 03/13/17 16:35 Urine Urobilinogen 0.2 E.U./dL (<1 E.U./dL) 03/13/17 16:35 Ur Leukocyte Esterase Small Anton/uL (NEGATIVE) H 03/13/17 16:35 Urine RBC Tntc /hpf (0-2) 03/13/17 16:35 Urine WBC 10 - 15 /hpf (0-6) 03/13/17 16:35 Ur Epithelial Cells 0 - 2 /hpf (0-5) 03/13/17 16:35 Urine Bacteria Few (NEG) 03/13/17 16:35 Blood Type A POSITIVE 03/15/17 13:42 Antibody Screen Negative 03/15/17 13:42 Crossmatch See Detail 03/15/17 13:42 BBK History Checked Patient has bt 03/15/17 13:42 - Constitutional Appears: Well, No Acute Distress - Head Exam Head Exam: ATRAUMATIC, NORMAL INSPECTION, NORMOCEPHALIC - Eye Exam Eye Exam: Normal appearance - ENT Exam ENT Exam: Mucous Membranes Moist - Neck Exam Neck Exam: Normal Inspection - Respiratory Exam Respiratory Exam: Rales (Bilateral basal.), NORMAL BREATHING PATTERN. absent: Accessory Muscle Use, Prolonged Expiratory Phase, Rhonchi, Wheezes, Respiratory Distress, Stridor - Cardiovascular Exam Cardiovascular Exam: REGULAR RHYTHM, +S1. absent: JVD - GI/Abdominal Exam GI & Abdominal Exam: Soft - Rectal Exam Rectal Exam: Deferred - Exam Additional comments: Deferred. - Extremities Exam Extremities Exam: Normal Inspection - Back Exam Back Exam: NORMAL INSPECTION - Neurological Exam Neurological Exam: Alert, Oriented x3 - Psychiatric Exam Psychiatric exam: Normal Affect, Normal Mood - Skin Skin Exam: Normal Color Assessment and Plan - Assessment and Plan (Free Text) Assessment: S/P PRBC transfusion. Dyspnea. HTN. DM. Anemia. Renal insufficiency. Plan: Lasix 40 mg IV stat. Continue present management.
[2017-03-16 06:47] LABS: EOS % 0.1 % (1.5-5.0); HEMOGLOBIN 11.3 gm/dL (14.0-18.0); LYMPH # 0.1 (1.2-3.4); LYMPH % 1.4 % (22.0-35.0); MEAN CELL VOLUME 77.6 fL (80.0-105.0); MEAN CORPUSCULAR HEMOGLOBIN 23.9 pg (25.0-35.0); MEAN CORPUSCULAR HGB CONC 30.8 g/dl (31.0-37.0); MEAN PLATELET VOLUME 8.8 fl (7.0-11.0); MONO % 0.5 % (1.0-6.0); PLATELET COUNT 144 10^3/uL (120.0-450.0); RBC 4.73 10^6/uL (3.5-6.1); RED CELL DISTRIBUTION WIDTH 21.5 % (11.5-14.5); WHITE BLOOD COUNT 7.7 10^3/ul (4.5-11.0)
[2017-03-16 07:09] LABS: ALB/GLOB RATIO 0.9 (1.1-1.8); ALBUMIN 2.4 g/dL (3.0-4.8); CALCIUM 8.1 mg/dL (8.4-10.5)
--- NOTE | 2017-03-16 07:52 | CP.PCM.PN ---
<RejiBethany - Last Filed: 03/16/17 13:52> Subjective - Date & Time of Evaluation Date of Evaluation: 03/16/17 Time of Evaluation: 07:51 - Subjective Subjective: SOB last night requiring 4L NC T 102.9, HR 98, RR 22 at 9am today septic workup cough persist Objective - Vital Signs/Intake and Output Vital Signs (last 24 hours): Temp Pulse Resp BP Pulse Ox 97.9 F 60 18 160/79 H 98 03/16/17 02:50 03/16/17 02:50 03/16/17 02:50 03/16/17 06:38 03/15/17 16:00 Intake and Output: 03/16/17 03/16/17 06:59 18:59 Intake Total 540 Output Total 450 Balance 90 - Medications Medications: Current Medications Acetaminophen (Tylenol 325mg Tab) 650 mg PO Q4H PRN PRN Reason: fever > 100.5 Amiodarone HCl (Cordarone) 200 mg PO QAM [facility] Last Admin: 03/15/17 10:50 Dose: 200 mg Atorvastatin Calcium (Lipitor) 20 mg PO DAILY [facility] Last Admin: 03/15/17 10:51 Dose: 20 mg Bacitracin (Bacitracin) 1 ea TOP DAILY [facility] Last Admin: 03/15/17 10:52 Dose: 1 ea Benzonatate (Tessalon Perles) 100 mg PO TID [facility] Last Admin: 03/15/17 17:50 Dose: 100 mg Carvedilol (Coreg) 3.125 mg PO DAILY [facility] Last Admin: 03/15/17 10:49 Dose: 3.125 mg Docusate Sodium (Colace) 100 mg PO BID [facility] Last Admin: 03/15/17 17:50 Dose: 100 mg Dextrose/Sodium Chloride (Dextrose 5%/0.9% Ns 1000 Ml) 1,000 mls @ 80 mls/hr IV .[id number] [facility] Last Admin: 03/16/17 03:09 Dose: 80 mls/hr Iron Sucrose 200 mg/ Sodium (Chloride) 110 mls @ 110 mls/hr IVPB DAILY [facility] Stop: 03/18/17 10:59 Last Admin: 03/15/17 10:51 Dose: 110 mls/hr Levofloxacin/Dextrose (Levaquin 250mg) 250 mg in 50 mls @ 100 mls/hr IVPB Q48H [facility] Last Admin: 03/14/17 09:49 Dose: 100 mls/hr Lisinopril (Zestril) 10 mg PO QAM [facility] Last Admin: 03/15/17 10:53 Dose: 10 mg Pantoprazole Sodium (Protonix Ec Tab) 40 mg PO QAM [facility] Last Admin: 03/15/17 10:50 Dose: 40 mg Sitagliptin Phosphate (Januvia) 50 mg PO DAILY [facility] Tamsulosin HCl (Flomax) 0.4 mg PO DAILY [facility] Last Admin: 03/15/17 10:50 Dose: 0.4 mg - Labs Labs: 03/16/17 06:30 03/16/17 06:30 PT 13.6 Seconds (9.9-11.8) H 03/15/17 11:00 INR 1.26 (0.93-1.08) H 03/15/17 11:00 APTT 44.1 Seconds (23.7-30.8) H 03/15/17 11:00 - Constitutional Appears: No Acute Distress, Chronically Ill - Head Exam Head Exam: ATRAUMATIC, NORMAL INSPECTION, NORMOCEPHALIC - Eye Exam Eye Exam: EOMI, Normal appearance, PERRL. absent: Scleral icterus Pupil Exam: NORMAL ACCOMODATION - ENT Exam ENT Exam: Mucous Membranes Moist - Respiratory Exam Respiratory Exam: Decreased Breath Sounds, Rales. absent: Rhonchi, Wheezes - Cardiovascular Exam Cardiovascular Exam: REGULAR RHYTHM, +S1, +S2 - GI/Abdominal Exam GI & Abdominal Exam: Distended, Soft. absent: Rigid, Tenderness - Neurological Exam Neurological Exam: Awake (lethargic) - Psychiatric Exam Psychiatric exam: Normal Affect, Normal Mood - Skin Skin Exam: Dry, Warm Additional comments: Warm Assessment and Plan - Assessment and Plan (Free Text) Plan: 86 year old male presents to the emergency room complaining of uncontrollable diarrhea of about 5 - 10 times a day. He has transitional cell bladder carcinoma (s/p RT), Hx anemia and blood transfusions. As for GI, 15 - 18 polyps removed on colonoscopy a few years ago; On 07/2016, EGD neg and colonoscopy one cecal polyp removed benign. He is also survivor of CPR in the field in 2013 leading to PTCA, HTN, NIDDM. Urosepsis vs Pneumonia - on levaquin IV. - Sepsis: 103 F, RR 22, HR 98 - CXR - RLL infiltrate (PNA vs atelactesis) - add tessalon - HCAP related? Consider adding pseudomona coverage as pt is diabetic? - consider ID consult Hx bladder ca with new Left hydronephrosis and 7 mm ureteral calculus - flomax - IR consult for percutanoues nephrostomy tube and ureteral stent prior to cysto and tu excision Anemia, Severe microcytic: GI blood loss vs hematuria vs CKD - Hb drops to 7.6, will transfuse 1u pRBC - on Venofar IV; feosol 325 daily - pending stool for occult blood Now constipated, lasr BM 2 days, hypoactive BS persistent diarrhea - resolved - stool culture (-) - Cdiff negative NIDDM - A1C 6.9 - Januvia renal dose @ 50mg/day MARCIA on CKD - baseline creatinine 2 - avoid nephrotoxins - Off Metformin - OK to con't Lisinopril per nephro - Resolving MARCIA Hx CAD s/p PCI - amiodarone, lopitor, coreg,lisiniprol Prophylaixs - PPI - SCD s/r/d/w Dr. Otoole <Marguerite Otoole P - Last Filed: 03/16/17 19:28> Objective - Vital Signs/Intake and Output Vital Signs (last 24 hours): Temp Pulse Resp BP Pulse Ox 97.4 F L 67 18 111/54 L 98 03/16/17 16:00 03/16/17 16:00 03/16/17 16:00 03/16/17 16:00 03/16/17 16:00 - Medications Medications: Current Medications Acetaminophen (Tylenol 325mg Tab) 650 mg PO Q4H PRN PRN Reason: fever > 100.5 Last Admin: 03/16/17 09:11 Dose: 650 mg Amiodarone HCl (Cordarone) 200 mg PO QAM [facility] Last Admin: 03/16/17 09:15 Dose: 200 mg Atorvastatin Calcium (Lipitor) 20 mg PO DAILY [facility] Last Admin: 03/16/17 09:14 Dose: 20 mg Bacitracin (Bacitracin) 1 ea TOP DAILY [facility] Last Admin: 03/16/17 09:13 Dose: 1 ea Benzonatate (Tessalon Perles) 100 mg PO TID [facility] Last Admin: 03/16/17 18:42 Dose: 100 mg Carvedilol (Coreg) 3.125 mg PO DAILY [facility] Last Admin: 03/16/17 09:14 Dose: 3.125 mg Docusate Sodium (Colace) 100 mg PO BID [facility] Last Admin: 03/16/17 17:58 Dose: 100 mg Dextrose/Sodium Chloride (Dextrose 5%/0.9% Ns 1000 Ml) 1,000 mls @ 80 mls/hr IV .[id number] [facility] Last Admin: 03/16/17 03:09 Dose: 80 mls/hr Iron Sucrose 200 mg/ Sodium (Chloride) 110 mls @ 110 mls/hr IVPB DAILY [facility] Stop: 03/18/17 10:59 Last Admin: 03/16/17 09:15 Dose: 110 mls/hr Levofloxacin/Dextrose (Levaquin 250mg) 250 mg in 50 mls @ 100 mls/hr IVPB Q48H [facility] Last Admin: 03/16/17 09:12 Dose: 100 mls/hr Sodium Chloride (Sodium Chloride 0.45%) 1,000 mls @ 80 mls/hr IV .[id number] [facility] Stop: 03/17/17 18:00 Last Admin: 03/16/17 18:00 Dose: 80 mls/hr Lisinopril (Zestril) 10 mg PO QAM [facility] Last Admin: 03/16/17 09:15 Dose: 10 mg Pantoprazole Sodium (Protonix Ec Tab) 40 mg PO QAM [facility] Last Admin: 03/16/17 09:14 Dose: 40 mg Sitagliptin Phosphate (Januvia) 50 mg PO DAILY [facility] Last Admin: 03/16/17 09:14 Dose: 50 mg Tamsulosin HCl (Flomax) 0.4 mg PO DAILY [facility] Last Admin: 03/16/17 09:14 Dose: 0.4 mg - Labs Labs: 03/16/17 06:30 03/16/17 06:30 PT 13.6 Seconds (9.9-11.8) H 03/15/17 11:00 INR 1.26 (0.93-1.08) H 03/15/17 11:00 APTT 44.1 Seconds (23.7-30.8) H 03/15/17 11:00 Attending/Attestation - Attestation I have personally seen and examined this patient.: Yes I have fully participated in the care of the patient.: Yes I have reviewed all pertinent clinical information, including history, physical exam and plan: Yes
[2017-03-16] MEDS: levoFLOXacin 250 mg in D5W 250 MG/50 ML BAG IVPB SCH (09:12)
[2017-03-16] MEDS: Bacitracin 500 Units/gm Oint Foilpak UD TOP SCH (09:13)
[2017-03-16] MEDS: Pantoprazole 40 mg EC Tab PO SCH (09:14)
[2017-03-16 09:44] LABS: ARTERIAL BLOOD GAS HCO3 16.7 mmol/L (21-28); ARTERIAL BLOOD GAS O2 SAT 97.3 % (95-98); ARTERIAL BLOOD GAS PCO2 31 mm/Hg (35-45); ARTERIAL BLOOD GAS PH 7.34 (7.35-7.45); ARTERIAL BLOOD GAS TCO2 17.7 mmol.L (22-28)
--- NOTE | 2017-03-16 11:06 | CP.PCM.PN ---
Subjective - Date & Time of Evaluation Date of Evaluation: 03/16/17 Time of Evaluation: 09:30 - Subjective Subjective: S&E at bedside, patient reported to have BM yesterday, no bleeding or diarrhea. Patient with no complaints. Patient with temp this am 102, had CXR yesterday report right lung infiltrate. No SOB or chest pain. Objective - Vital Signs/Intake and Output Vital Signs (last 24 hours): Temp Pulse Resp BP Pulse Ox 102.9 F H 60 20 143/71 98 03/16/17 09:11 03/16/17 09:14 03/16/17 08:36 03/16/17 09:14 03/16/17 08:36 Intake and Output: 03/16/17 03/16/17 06:59 18:59 Intake Total 540 Output Total 450 Balance 90 - Medications Medications: Current Medications Acetaminophen (Tylenol 325mg Tab) 650 mg PO Q4H PRN PRN Reason: fever > 100.5 Last Admin: 03/16/17 09:11 Dose: 650 mg Amiodarone HCl (Cordarone) 200 mg PO QAM [facility] Last Admin: 03/16/17 09:15 Dose: 200 mg Atorvastatin Calcium (Lipitor) 20 mg PO DAILY [facility] Last Admin: 03/16/17 09:14 Dose: 20 mg Bacitracin (Bacitracin) 1 ea TOP DAILY [facility] Last Admin: 03/16/17 09:13 Dose: 1 ea Benzonatate (Tessalon Perles) 100 mg PO TID [facility] Last Admin: 03/16/17 09:14 Dose: 100 mg Carvedilol (Coreg) 3.125 mg PO DAILY [facility] Last Admin: 03/16/17 09:14 Dose: 3.125 mg Docusate Sodium (Colace) 100 mg PO BID [facility] Last Admin: 03/16/17 09:14 Dose: 100 mg Dextrose/Sodium Chloride (Dextrose 5%/0.9% Ns 1000 Ml) 1,000 mls @ 80 mls/hr IV .[id number] [facility] Last Admin: 03/16/17 03:09 Dose: 80 mls/hr Iron Sucrose 200 mg/ Sodium (Chloride) 110 mls @ 110 mls/hr IVPB DAILY [facility] Stop: 03/18/17 10:59 Last Admin: 03/16/17 09:15 Dose: 110 mls/hr Levofloxacin/Dextrose (Levaquin 250mg) 250 mg in 50 mls @ 100 mls/hr IVPB Q48H [facility] Last Admin: 03/16/17 09:12 Dose: 100 mls/hr Lisinopril (Zestril) 10 mg PO QAM [facility] Last Admin: 03/16/17 09:15 Dose: 10 mg Pantoprazole Sodium (Protonix Ec Tab) 40 mg PO QAM [facility] Last Admin: 03/16/17 09:14 Dose: 40 mg Sitagliptin Phosphate (Januvia) 50 mg PO DAILY [facility] Last Admin: 03/16/17 09:14 Dose: 50 mg Tamsulosin HCl (Flomax) 0.4 mg PO DAILY [facility] Last Admin: 03/16/17 09:14 Dose: 0.4 mg - Labs Labs: 03/16/17 06:30 03/16/17 06:30 PT 13.6 Seconds (9.9-11.8) H 03/15/17 11:00 INR 1.26 (0.93-1.08) H 03/15/17 11:00 APTT 44.1 Seconds (23.7-30.8) H 03/15/17 11:00 - Constitutional Appears: No Acute Distress - Eye Exam Eye Exam: Normal appearance. absent: Scleral icterus - ENT Exam ENT Exam: Mucous Membranes Moist - Neck Exam Neck Exam: Normal Inspection - Respiratory Exam Respiratory Exam: NORMAL BREATHING PATTERN. absent: Respiratory Distress - Cardiovascular Exam Cardiovascular Exam: +S1, +S2 - GI/Abdominal Exam GI & Abdominal Exam: Soft, Normal Bowel Sounds. absent: Guarding, Tenderness, Organomegaly, Rebound - Extremities Exam Extremities Exam: absent: Calf Tenderness, Pedal Edema - Neurological Exam Neurological Exam: Alert, Awake, Oriented x3 - Skin Skin Exam: Dry, Warm Assessment and Plan - Assessment and Plan (Free Text) Assessment: ASSESSMENT: Anemia sp transfusion Hct stable/EGD neg and colonoscopy one cecal polyp removed benign, last in JUL 2016 Fever, right lung infiltrates left hydronephrosis H/O Colon polyp Bladder cancer sp RT CKD CAD UTI Plan: continue colace Followup hb /hct continue PPI on Iron supplement On Levaquin diet as tolerated plan for nephrostomy tube as per IR Seen and discussed with Dr. Buckner.ASSESSMENT
[2017-03-16] MEDS ORDERED: Iodixanol 320 MG/ML 100 ML BOTTLE IV ONE (12:16)
[2017-03-16] MEDS ORDERED: Lidocaine 2% Inj (20ml) ONE (12:16)
[2017-03-16] MEDS ORDERED: Midazolam 2 MG/2 ML VIAL ONE (12:16)
[2017-03-16] MEDS ORDERED: Iodixanol 320 MG/ML 200 ML BOTTLE IV ONE (12:16)
[2017-03-16] MEDS ORDERED: Bacitracin 500 Units/gm Oint Foilpak UD ONE (14:12)
[2017-03-16] MEDS ORDERED: DiphenhydrAMINE 50 mg/ml Inj ONE (14:12)
--- NOTE | 2017-03-16 16:57 | VASCULAR ---
PROCEDURE: 1. Right antegrade pyelogram. 2. Right percutaneous nephrostomy tube placement. HISTORY: Advanced bladder carcinoma. Bilateral hydronephrosis. Renal insufficiency. PHYSICIAN(S): Anthony Espinosa MD. TECHNIQUE: The relative risks and indications of the procedure were explained to the patient and his niece and consent obtained. The patient was placed prone on the arteriogram table and the right back and flank prepped and draped in the usual sterile fashion. Conscious sedation and monitoring were provided throughout the procedure by a nurse. A single pass with a 21-gauge needle was performed and the right renal pelvis was entered. Purulent urine was aspirated. A microbiology specimen was sent. Limited contrast was injected and an antegrade pyelogram performed. A second puncture site involving a right lower polecalyx was selected for tube placement. 1% Xylocaine was used to anesthetize the skin and soft tissues. An 18-gauge needle was advanced under fluoroscopy into a right lower polecalyx. A 0.035 angled guidewire was coiled within the renal pelvis. Sequential dilatation was performed with subsequent placement of a 14French nephrostomy tube. The tube was secured and placed to gravity drainage. The patient tolerated the procedure well. FINDINGS: There is severe right hydronephrosis. A complete occlusion is seen at the level of the right SI joint. No contrast enters the bladder. IMPRESSION: 1.Pyonephrosis. Severe right hydronephrosis to the level of the right SI joint. Contrast enters the bladder. 2. Successful placement of 14 [place] right nephrostomy tube. No attempt was made to place an antegrade right ureteral stent given the pyonephrosis.
[2017-03-16 17:38] LABS: URINE BILIRUBIN NEGATIVE (NEGATIVE); URINE BLOOD LARGE (NEGATIVE); URINE GLUCOSE (UA) NEGATIVE (NEGATIVE); URINE LEUKOCYTE ESTERASE MODERATE Leu/uL (NEGATIVE); URINE NITRATE NEGATIVE (NEGATIVE); URINE PROTEIN 100 mg/dL (<30 mg/dL); URINE UROBILINOGEN 0.2 E.U./dL (<1 E.U./dL)
[2017-03-16 17:39] LABS: URINE APPEARANCE CLEAR (CLEAR); URINE COLOR YELLOW (YELLOW)
[2017-03-16] MEDS: Sodium Chloride 0.45% 1,000 ML IV SCH (18:00)
[2017-03-16 19:08] LABS: URINE BACTERIA LARGE (NEG)
[2017-03-17] MEDS: Sodium Chloride 0.45% 1,000 ML IV SCH (06:50)
[2017-03-17] MEDS ORDERED: Vancomycin 1gm in NS 250ml 1 GM/250 ML BAG IVPB STA (08:59)
--- NOTE | 2017-03-17 09:08 | PN ---
DATE: 03/16/2017 SUBJECTIVE: The patient was seen lying in bed. He is awake, he is alert. He appears comfortable. PHYSICAL EXAMINATION GENERAL: Elderly male, lying in bed. VITAL SIGNS: Blood pressure 143/71, heart rate 60, respiratory rate 20, temperature 102.9. HEENT: Normocephalic, atraumatic. NECK: Supple, no JVD. CARDIAC: S1 and S2, regular rate and rhythm, no murmur, no rub. LUNGS: Bilateral equal air entry, no rales. ABDOMEN: Soft, nondistended, nontender, bowel sounds present. EXTREMITIES: No lower extremity edema. INTAKE AND OUTPUT: 875/450. LABORATORY DATA: WBC 7.7, hemoglobin 11, hematocrit 36.7, and platelets 144. Sodium 137, potassium 5.1, chloride 111, CO2 of 17, BUN 33, creatinine 2.7, glucose 257, calcium 8.1, albumin 2.4, corrected calcium 9.1. Blood gas; pH 7.3, pCO2 of 31, pO2 of 74. CURRENT MEDICATIONS: Bacitracin, Colace, amiodarone, Coreg, D5 normal saline at 80, Flomax, Venofer, Januvia 50 mg daily, Levaquin 250 mg, Lipitor 20 mg, Protonix, Tylenol, and lisinopril 10 mg. ASSESSMENT: 1. Bladder cancer, hematuria. 2. Severe anemia, status post 2 units of PRBCs yesterday. 3. Acute kidney injury superimposed on chronic kidney disease stage IV, resolving, baseline creatinine around 2.5. 4. Shortness of breath, fever last night. 5. Hypoalbuminemia. 6. ?Sepsis PLAN: 1. Continue IV fluids, renal function is improving. 2. Mild hyperkalemia, continue to monitor. 3. Follow up cultures. 4. Proteus UTI, antibiotics as per ID recommendations. Iva Martins MD cc:
[2017-03-17] MEDS: Pantoprazole 40 mg EC Tab PO SCH (09:27)
[2017-03-17] MEDS: Bacitracin 500 Units/gm Oint Foilpak UD TOP SCH (09:28)
[2017-03-17] MEDS: Piperacillin/Tazobact 3.375 gm 100 ML IVPB SCH ×3 (09:38→21:16)
[2017-03-17] MEDS ORDERED: Cefepime 1gm in NS 100ml 1 GM/100 ML BAG IVPB SCH (10:00)
--- NOTE | 2017-03-17 11:50 | CP.PCM.PN ---
<Beatriz Heredia - Last Filed: 03/17/17 11:50> Subjective - Date & Time of Evaluation Date of Evaluation: 03/17/17 Time of Evaluation: 09:30 - Subjective Subjective: S&E at bedside, chart reviewed. S/p right nephrostomy tube that is draining light red fluid. Patient in no distress, no c/o SOB, CP, N/V, or pain. No fevers. Doesn't recall having BM. NO acute overnight events. Objective - Vital Signs/Intake and Output Vital Signs (last 24 hours): Temp Pulse Resp BP Pulse Ox 98.6 F 63 20 113/64 96 03/17/17 09:05 03/17/17 09:28 03/17/17 09:05 03/17/17 09:28 03/17/17 00:30 Intake and Output: 03/17/17 03/17/17 06:59 18:59 Intake Total 1440 480 Output Total 2025 300 Balance -585 180 - Medications Medications: Current Medications Acetaminophen (Tylenol 325mg Tab) 650 mg PO Q4H PRN PRN Reason: fever > 100.5 Last Admin: 03/17/17 04:32 Dose: 650 mg Amiodarone HCl (Cordarone) 200 mg PO QAM [facility] Last Admin: 03/17/17 09:28 Dose: Not Given Atorvastatin Calcium (Lipitor) 20 mg PO DAILY [facility] Last Admin: 03/17/17 09:27 Dose: Not Given Bacitracin (Bacitracin) 1 ea TOP DAILY [facility] Last Admin: 03/17/17 09:28 Dose: Not Given Benzonatate (Tessalon Perles) 100 mg PO TID [facility] Last Admin: 03/17/17 09:27 Dose: Not Given Carvedilol (Coreg) 3.125 mg PO DAILY [facility] Last Admin: 03/17/17 09:28 Dose: Not Given Docusate Sodium (Colace) 100 mg PO BID [facility] Last Admin: 03/17/17 09:27 Dose: Not Given Iron Sucrose 200 mg/ Sodium (Chloride) 110 mls @ 110 mls/hr IVPB DAILY [facility] Stop: 03/18/17 10:59 Last Admin: 03/17/17 09:44 Dose: 110 mls/hr Levofloxacin/Dextrose (Levaquin 250mg) 250 mg in 50 mls @ 100 mls/hr IVPB Q48H [facility] Last Admin: 03/16/17 09:12 Dose: 100 mls/hr Sodium Chloride (Sodium Chloride 0.45%) 1,000 mls @ 80 mls/hr IV .[id number] [facility] Stop: 03/17/17 18:00 Last Admin: 03/17/17 06:50 Dose: 80 mls/hr Piperacillin Sod/Tazobactam Sod (Zosyn 3.375 In Ns 100ml) 100 mls @ 200 mls/hr IVPB Q8 [facility] PRN Reason: Protocol Stop: 03/24/17 09:16 Last Admin: 03/17/17 09:38 Dose: 200 mls/hr Lisinopril (Zestril) 10 mg PO QAM [facility] Last Admin: 03/17/17 09:28 Dose: Not Given Pantoprazole Sodium (Protonix Ec Tab) [facility] [place] Last Admin: 03/17/17 09:27 Dose: Not Given Sitagliptin Phosphate (Januvia) 50 mg PO DAILY [facility] Last Admin: 03/17/17 09:27 Dose: Not Given Tamsulosin HCl (Flomax) 0.4 mg PO DAILY [facility] Last Admin: 03/17/17 09:27 Dose: Not Given - Labs Labs: 03/16/17 06:30 03/16/17 06:30 PT 13.6 Seconds (9.9-11.8) H 03/15/17 11:00 INR 1.26 (0.93-1.08) H 03/15/17 11:00 APTT 44.1 Seconds (23.7-30.8) H 03/15/17 11:00 - Constitutional Appears: No Acute Distress - Head Exam Head Exam: NORMAL INSPECTION Additional comments: wound on scalp is healing, appear clean and dry - Eye Exam Eye Exam: Normal appearance. absent: Scleral icterus - ENT Exam ENT Exam: Mucous Membranes Moist - Neck Exam Neck Exam: Normal Inspection - Respiratory Exam Respiratory Exam: NORMAL BREATHING PATTERN. absent: Respiratory Distress - Cardiovascular Exam Cardiovascular Exam: +S1, +S2 - GI/Abdominal Exam GI & Abdominal Exam: Soft, Normal Bowel Sounds. absent: Guarding, Tenderness, Rebound Additional comments: right flank nephrostomy tube, dressing is dry and intact. - Extremities Exam Extremities Exam: absent: Calf Tenderness, Pedal Edema - Neurological Exam Neurological Exam: Alert, Awake, Oriented x3 - Skin Skin Exam: Dry, Warm Assessment and Plan - Assessment and Plan (Free Text) Assessment: ASSESSMENT: s/p right nephrostomy tube Anemia sp transfusion Hct stable/EGD neg and colonoscopy one cecal polyp removed benign, last in JUL 2016 Fever, right lung infiltrates left hydronephrosis H/O Colon polyp Bladder cancer sp RT CKD CAD UTI Plan: continue colace start miralax daily, hold for stools >2/day Followup hb /hct continue PPI on Iron supplement On Levaquin diet as tolerated Seen and discussed with Dr. Buckner. <Kary Buckner V - Last Filed: 03/17/17 23:43> Objective - Vital Signs/Intake and Output Vital Signs (last 24 hours): Temp Pulse Resp BP Pulse Ox 98.6 F 63 20 113/64 96 03/17/17 09:05 03/17/17 09:28 03/17/17 09:05 03/17/17 09:28 03/17/17 00:30 Intake and Output: 03/17/17 03/18/17 18:59 06:59 Intake Total 480 Output Total 300 875 Balance 180 -875 - Medications Medications: Current Medications Acetaminophen (Tylenol 325mg Tab) 650 mg PO Q4H PRN PRN Reason: fever > 100.5 Last Admin: 03/17/17 04:32 Dose: 650 mg Amiodarone HCl (Cordarone) 200 mg PO QAM [facility] Last Admin: 03/17/17 09:28 Dose: Not Given Atorvastatin Calcium (Lipitor) 20 mg PO DAILY [facility] Last Admin: 03/17/17 09:27 Dose: Not Given Bacitracin (Bacitracin) 1 ea TOP DAILY [facility] Last Admin: 03/17/17 09:28 Dose: Not Given Benzonatate (Tessalon Perles) 100 mg PO TID [facility] Last Admin: 03/17/17 17:02 Dose: 100 mg Carvedilol (Coreg) 3.125 mg PO DAILY [facility] Last Admin: 03/17/17 09:28 Dose: Not Given Docusate Sodium (Colace) 100 mg PO BID [facility] Last Admin: 03/17/17 17:02 Dose: 100 mg Iron Sucrose 200 mg/ Sodium (Chloride) 110 mls @ 110 mls/hr IVPB DAILY [facility] Stop: 03/18/17 10:59 Last Admin: 03/17/17 09:44 Dose: 110 mls/hr Piperacillin Sod/Tazobactam Sod (Zosyn 3.375 In Ns 100ml) 100 mls @ 200 mls/hr IVPB Q8 [facility] PRN Reason: Protocol Stop: 03/24/17 09:16 Last Admin: 03/17/17 21:16 Dose: 200 mls/hr Lisinopril (Zestril) 10 mg PO QAM [facility] Last Admin: 03/17/17 09:28 Dose: Not Given Pantoprazole Sodium (Protonix Ec Tab) 40 mg PO QAM [facility] Last Admin: 03/17/17 09:27 Dose: Not Given Polyethylene Glycol (Miralax) 17 gm PO DAILY [facility] Last Admin: 03/17/17 12:35 Dose: 17 gm Sitagliptin Phosphate (Januvia) 50 mg PO DAILY [facility] Last Admin: 03/17/17 09:27 Dose: Not Given Tamsulosin HCl (Flomax) 0.4 mg PO DAILY [facility] Last Admin: 03/17/17 09:27 Dose: Not Given - Labs Labs: 03/17/17 16:25 03/17/17 16:25 PT 13.9 Seconds (9.9-11.8) H 03/17/17 16:25 INR 1.29 (0.93-1.08) H 03/17/17 16:25 APTT 47.6 Seconds (23.7-30.8) H 03/17/17 16:25 Attending/Attestation - Attestation I have personally seen and examined this patient.: Yes I have fully participated in the care of the patient.: Yes I have reviewed all pertinent clinical information, including history, physical exam and plan: Yes Notes (Text): this
[2017-03-17] MEDS: POLYETHYLENE GLYCOL 3350 17 GM/Dose PACKET PO SCH (12:35)
--- NOTE | 2017-03-17 15:20 | CP.PCM.PN ---
Subjective - Date & Time of Evaluation Date of Evaluation: 03/17/17 Time of Evaluation: 15:19 - Subjective Subjective: PGY-[address] Otoole 96 on 2L NC Mild red in urine Pt denies dizzines, CP, SOB, palpitation, n/v Objective - Vital Signs/Intake and Output Vital Signs (last 24 hours): Temp Pulse Resp BP Pulse Ox 98.6 F 63 20 113/64 96 03/17/17 09:05 03/17/17 09:28 03/17/17 09:05 03/17/17 09:28 03/17/17 00:30 Intake and Output: 03/17/17 03/17/17 06:59 18:59 Intake Total 1440 480 Output Total 2025 300 Balance -585 180 - Medications Medications: Current Medications Acetaminophen (Tylenol 325mg Tab) 650 mg PO Q4H PRN PRN Reason: fever > 100.5 Last Admin: 03/17/17 04:32 Dose: 650 mg Amiodarone HCl (Cordarone) 200 mg PO QAM [facility] Last Admin: 03/17/17 09:28 Dose: Not Given Atorvastatin Calcium (Lipitor) 20 mg PO DAILY [facility] Last Admin: 03/17/17 09:27 Dose: Not Given Bacitracin (Bacitracin) 1 ea TOP DAILY [facility] Last Admin: 03/17/17 09:28 Dose: Not Given Benzonatate (Tessalon Perles) 100 mg PO TID [facility] Last Admin: 03/17/17 13:32 Dose: 100 mg Carvedilol (Coreg) 3.125 mg PO DAILY [facility] Last Admin: 03/17/17 09:28 Dose: Not Given Docusate Sodium (Colace) 100 mg PO BID [facility] Last Admin: 03/17/17 09:27 Dose: Not Given Iron Sucrose 200 mg/ Sodium (Chloride) 110 mls @ 110 mls/hr IVPB DAILY [facility] Stop: 03/18/17 10:59 Last Admin: 03/17/17 09:44 Dose: 110 mls/hr Levofloxacin/Dextrose (Levaquin 250mg) 250 mg in 50 mls @ 100 mls/hr IVPB Q48H [facility] Last Admin: 03/16/17 09:12 Dose: 100 mls/hr Sodium Chloride (Sodium Chloride 0.45%) 1,000 mls @ 80 mls/hr IV .[id number] [facility] Stop: 03/17/17 18:00 Last Admin: 03/17/17 06:50 Dose: 80 mls/hr Piperacillin Sod/Tazobactam Sod (Zosyn 3.375 In Ns 100ml) 100 mls @ 200 mls/hr IVPB Q8 [facility] PRN Reason: Protocol Stop: 03/24/17 09:16 Last Admin: 03/17/17 13:32 Dose: 200 mls/hr Lisinopril (Zestril) 10 mg PO QAM [facility] Last Admin: 03/17/17 09:28 Dose: Not Given Pantoprazole Sodium (Protonix Ec Tab) 40 mg PO QAM [facility] Last Admin: 03/17/17 09:27 Dose: Not Given Polyethylene Glycol (Miralax) 17 gm PO DAILY [facility] Last Admin: 03/17/17 12:35 Dose: 17 gm Sitagliptin Phosphate (Januvia) 50 mg PO DAILY [facility] Last Admin: 03/17/17 09:27 Dose: Not Given Tamsulosin HCl (Flomax) 0.4 mg PO DAILY [facility] Last Admin: 03/17/17 09:27 Dose: Not Given - Labs Labs: 03/16/17 06:30 03/16/17 06:30 PT 13.6 Seconds (9.9-11.8) H 03/15/17 11:00 INR 1.26 (0.93-1.08) H 03/15/17 11:00 APTT 44.1 Seconds (23.7-30.8) H 03/15/17 11:00 - Constitutional Appears: Chronically Ill - Head Exam Head Exam: NORMAL INSPECTION, NORMOCEPHALIC Additional comments: scalp healing well - Eye Exam Eye Exam: EOMI, Normal appearance, PERRL. absent: Scleral icterus Pupil Exam: NORMAL ACCOMODATION - ENT Exam ENT Exam: Mucous Membranes Moist - Respiratory Exam Respiratory Exam: Decreased Breath Sounds (all lung vogt). absent: Rales, Rhonchi, Wheezes - Cardiovascular Exam Cardiovascular Exam: REGULAR RHYTHM, +S1, +S2 - GI/Abdominal Exam GI & Abdominal Exam: Distended, Soft, Normal Bowel Sounds - Neurological Exam Neurological Exam: Alert, Awake - Psychiatric Exam Psychiatric exam: Normal Affect, Normal Mood - Skin Skin Exam: Dry, Warm Assessment and Plan - Assessment and Plan (Free Text) Plan: 86 year old male presents to the emergency room complaining of uncontrollable diarrhea of about 5 - 10 times a day. He has transitional cell bladder carcinoma (s/p RT), Hx anemia and blood transfusions. As for GI, 15 - 18 polyps removed on colonoscopy a few years ago; On 07/2016, EGD neg and colonoscopy one cecal polyp removed benign. He is also survivor of CPR in the field in 2013 leading to PTCA, HTN, NIDDM. Hematuria s/p nephrostomy tube insertion - H/H stable - VSS - continue flush nephrostomy tube BID Urosepsis vs Pneumonia vs protitis - Sepsis: 103 F, RR 22, HR 98 - CXR - RLL infiltrate (PNA vs atelactesis) - add tessalon - IV Vancomycin and started Zosyn Hx bladder ca with new Left hydronephrosis and 7 mm ureteral calculus - flomax - IR consult for percutanoues nephrostomy tube and ureteral stent prior to cysto and tu excision Anemia, Severe microcytic: GI blood loss vs hematuria vs CKD - Hb drops to 7.6, will transfuse 1u pRBC - on Venofar IV; feosol 325 daily - pending stool for occult blood Now constipated, lasr BM 2 days, hypoactive BS persistent diarrhea - resolved - stool culture (-) - Cdiff negative NIDDM - A1C 6.9 - Januvia renal dose @ 50mg/day MARCIA on CKD - baseline creatinine 2 - avoid nephrotoxins - Off Metformin - OK to con't Lisinopril per nephro - Resolving MARCIA Hx CAD s/p PCI - amiodarone, lopitor, coreg,lisiniprol Prophylaixs - PPI - SCD Advanced planning - No living will on file - Consider palliative care consult s/r/d/w Dr. Otoole
--- NOTE | 2017-03-17 15:30 | CP.PCM.CON ---
History of Present Illness - History of Present Illness History of Present Illness: 86 year old male with PMH of bladder cancer, DM, CAD S/P PCI, chronic anemia was brought in initially to [facility] because of abdominal discomfort with loose bowel movement and some hematuria. He was found to have left sided hydronephrosis and the patient was also found to have prostate infiltrations with suspicion for prostatitis. He was started on Levaquin after the urine cx revealed Proteus in the urine. He underwent nephrostomy tube placement yesterday, but the patient started having fevers prior to the procedure. He continued to have fevers last night. He denies headache or dizziness, no chest pain, no SOB, no abdominal pain, no some discomfort at the nephrostomy site, some blood coming from the nephrostomy tube and ramos catheter , no diarrhea. Infectiosu Diseases consult is requested to further evaluate and manage. Review of Systems - Review of Systems All systems: reviewed and no additional remarkable complaints except (as per HPI ) Past Patient History - Infectious Disease Hx of Infectious Diseases: None - Tetanus Immunizations Tetanus Immunization: Unknown - Past Medical History & Family History Past Family History: Reviewed and not pertinent - Past Social History Smoking Status: Former Smoker - CARDIAC Hx Cardiac Disorders: Yes Hx Hypertension: Yes - PULMONARY Hx Respiratory Disorders: No - NEUROLOGICAL Hx Neurological Disorder: No - HEENT Hx HEENT Problems: No Hx Difficulty Chewing: Yes (poor dentition) - RENAL Hx Chronic Kidney Disease: Yes Other/Comment: hx bladder ca - ENDOCRINE/METABOLIC Hx Diabetes Mellitus Type 2: Yes - HEMATOLOGICAL/ONCOLOGICAL Hx Anemia: Yes Hx Blood Transfusions: Yes (txfuse 5 u of PRBCs 06/19) Hx Blood Transfusion Reaction: Yes - INTEGUMENTARY Hx Dermatological Problems: No - MUSCULOSKELETAL/RHEUMATOLOGICAL Hx Degenerative Joint Disease: Yes Hx Falls: Yes - GASTROINTESTINAL Hx Gastrointestinal Disorders: No - GENITOURINARY/GYNECOLOGICAL Hx Genitourinary Disorders: Yes Hx Hematuria: Yes Hx Prostate Problems: Yes (enlarge prostate) - PSYCHIATRIC Hx Psychophysiologic Disorder: No Hx Substance Use: No - SURGICAL HISTORY Hx Cardiac Catheterization: Yes Hx Coronary Stent: Yes - ANESTHESIA Hx Anesthesia: Yes Hx Anesthesia Reactions: No Hx Malignant Hyperthermia: No Meds Allergies/Adverse Reactions: Allergies Allergy/AdvReac Type Severity Reaction Status Date / Time No Known Allergies Allergy Unverified 06/20/16 13:53 - Medications Medications: Current Medications Acetaminophen (Tylenol 325mg Tab) 650 mg PO Q4H PRN PRN Reason: fever > 100.5 Last Admin: 03/17/17 04:32 Dose: 650 mg Amiodarone HCl (Cordarone) 200 mg PO QAM [facility] Last Admin: 03/16/17 09:15 Dose: 200 mg Atorvastatin Calcium (Lipitor) 20 mg PO DAILY [facility] Last Admin: 03/16/17 09:14 Dose: 20 mg Bacitracin (Bacitracin) 1 ea TOP DAILY [facility] Last Admin: 03/16/17 09:13 Dose: 1 ea Benzonatate (Tessalon Perles) 100 mg PO TID [facility] Last Admin: 03/16/17 18:42 Dose: 100 mg Carvedilol (Coreg) 3.125 mg PO DAILY [facility] Last Admin: 03/16/17 09:14 Dose: 3.125 mg Docusate Sodium (Colace) 100 mg PO BID [facility] Last Admin: 03/16/17 17:58 Dose: 100 mg Iron Sucrose 200 mg/ Sodium (Chloride) 110 mls @ 110 mls/hr IVPB DAILY [facility] Stop: 03/18/17 10:59 Last Admin: 03/16/17 09:15 Dose: 110 mls/hr Levofloxacin/Dextrose (Levaquin 250mg) 250 mg in 50 mls @ 100 mls/hr IVPB Q48H [facility] Last Admin: 03/16/17 09:12 Dose: 100 mls/hr Sodium Chloride (Sodium Chloride 0.45%) 1,000 mls @ 80 mls/hr IV .[id number] [facility] Stop: 03/17/17 18:00 Last Admin: 03/17/17 06:50 Dose: 80 mls/hr Lisinopril (Zestril) 10 mg PO QAM [facility] Last Admin: 03/16/17 09:15 Dose: 10 mg Pantoprazole Sodium (Protonix Ec Tab) 40 mg PO QAM [facility] Last Admin: 03/16/17 09:14 Dose: 40 mg Sitagliptin Phosphate (Januvia) 50 mg PO DAILY [facility] Last Admin: 03/16/17 09:14 Dose: 50 mg Tamsulosin HCl (Flomax) 0.4 mg PO DAILY [facility] Last Admin: 03/16/17 09:14 Dose: 0.4 mg Physical Exam - Constitutional Appears: Non-toxic, No Acute Distress - Head Exam Head Exam: NORMAL INSPECTION - ENT Exam ENT Exam: Mucous Membranes Moist - Neck Exam Neck exam: Negative for: Meningismus - Respiratory Exam Respiratory Exam: Decreased Breath Sounds - Cardiovascular Exam Cardiovascular Exam: +S1, +S2 - GI/Abdominal Exam GI & Abdominal Exam: Soft. absent: Tenderness - Back Exam Additional comments: left sided nephrostomy tube in place Results - Vital Signs Recent Vital Signs: Last Vital Signs Temp 98.7 F 03/17/17 00:00 Pulse 52 L 03/17/17 00:00 Resp 20 03/17/17 00:00 BP 108/56 L 03/17/17 00:00 Pulse Ox 96 03/17/17 00:30 - Labs Result Diagrams: 03/16/17 06:30 03/16/17 06:30 Labs: Laboratory Results - last 24 hr 03/16/17 03/16/17 03/16/17 09:38 10:00 16:34 pCO2 31 L pO2 74.0 L HCO3 16.7 L ABG pH 7.34 L ABG Total CO2 17.7 L ABG O2 Saturation 97.3 ABG Base Excess -7.9 L ABG Potassium 4.5 Sodium 139.0 Chloride 113.0 H Glucose 208 H Lactate 1.9 FiO2 40.0 Procalcitonin 0.67 H Arterial Blood Potassium 4.5 Urine Color Yellow Urine Appearance Clear Urine pH 6.0 Ur Specific [place] 1.015 Urine Protein 100 H Urine Glucose (UA) Negative Urine Ketones Negative Urine Blood Large H Urine Nitrate Negative Urine Bilirubin Negative Urine Urobilinogen 0.2 Ur Leukocyte Esterase Moderate H Urine RBC 10 - 15 Urine WBC 5 - 10 Ur Epithelial Cells 1 - 3 Urine Bacteria Large Assessment & Plan - Assessment and Plan (Free Text) Plan: Assessment Systemic Inflammatory Response Syndrome, R/O sepsis from prostatitis or left sided pyelonephritis as well as possible colitis S/P left sided nephrostomy tube placement bladder cancer DM CAD S/P PCI chronic anemia Plan Started patient on a dose of IV Vancomycin and started Zosyn pending blood, urine cx, CXR; reviewed CT scan of the abdomen and pelvis will monitor clinical response and fever curve
[2017-03-17 16:31] LABS: HEMOGLOBIN 10.5 gm/dL (14.0-18.0); MEAN CELL VOLUME 77.6 fL (80.0-105.0); MEAN CORPUSCULAR HEMOGLOBIN 23.5 pg (25.0-35.0); MEAN CORPUSCULAR HGB CONC 30.3 g/dl (31.0-37.0); MEAN PLATELET VOLUME 9.2 fl (7.0-11.0); PLATELET COUNT 112 10^3/uL (120.0-450.0); RBC 4.47 10^6/uL (3.5-6.1); RED CELL DISTRIBUTION WIDTH 22.4 % (11.5-14.5); WHITE BLOOD COUNT 11.9 10^3/ul (4.5-11.0)
[2017-03-17 16:42] LABS: INR 1.29 (0.93-1.08); PARTIAL THROMBOPLASTIN TIME 47.6 Seconds (23.7-30.8); PROTHROMBIN TIME 13.9 Seconds (9.9-11.8)
[2017-03-17 16:45] LABS: ALB/GLOB RATIO 0.9 (1.1-1.8); ALBUMIN 2.5 g/dL (3.0-4.8); CALCIUM 8.2 mg/dL (8.4-10.5)
[2017-03-17 17:01] LABS: ANISOCYTOSIS 1+; BAND 2 % (0-2); EOSINOPHIL 1 % (0.0-3.0); HYPOCHROMIA SLIGHT; LYMPHOCYTE 2 % (22.0-35.0); MONOCYTE 4 % (1.0-6.0); NEUTROPHIL 91 % (50.0-70.0); POIKILOCYTOSIS 1+
[2017-03-17 17:02] LABS: LARGE PLATELETS PRESENT; MICROCYTOSIS 1+; OVALOCYTES SLIGHT
--- NOTE | 2017-03-17 21:00 | PN ---
DATE: 03/17/2017 SUBJECTIVE: The patient is seen, lying in bed. He is awake. He is alert. He is comfortable. PHYSICAL EXAMINATION GENERAL: Elderly male, lying in bed. VITAL SIGNS: Blood pressure 113/64, heart rate 63, respiratory rate 20, temperature 98.6. HEENT: Normocephalic, atraumatic. Positive pallor. NECK: Supple. No JVD. LUNGS: Bilateral equal air entry. No rales. CARDIAC: S1, S2. Regular rate and rhythm. No murmur. No rubs. ABDOMEN: Soft, nondistended. Bowel sounds present. Right PCN. EXTREMITIES: No lower extremity edema. LABORATORY DATA: WBC 7.7, hemoglobin 11.3, hematocrit 36.7, platelets 144. Sodium 137, potassium 5.1, chloride 111, CO2 is 17, BUN 33, creatinine 2.7, glucose 257, calcium 8.1, AST 19, ALT 25. Albumin 2.4, corrected calcium is 9.1. CURRENT MEDICATIONS: Bacitracin, Colace, Cordarone, Coreg, Flomax, Venofer, Januvia 50 mg daily, Levaquin, Lipitor, MiraLax, Protonix, half normal saline at 80, Tessalon, Tylenol, Zestril, and Zosyn. ASSESSMENT AND PLAN: 1. Bladder cancer. 2. Bilateral hydronephrosis, worsened right hydronephrosis, status post right percutaneous nephrostomy, postoperative day #1. 3. Acute kidney injury, superimposed on chronic kidney disease stage IV, resolving. 4. Mild hyperkalemia. 5. Non-anion gap metabolic acidosis. 6. Severe anemia, status post 2 units of blood transfusion on 03/15/2017. 7. Hypertension. 8. Noninsulin-dependent diabetes mellitus. PLAN: 1. Stable renal function. 2. Monitor urine output. 3. Continue antibiotics for UTI. 4. Continue antihypertensives. 5. Continue fingerstick monitoring and Januvia 50 mg daily. Iva Martins MD
--- NOTE | 2017-03-17 21:49 | PN ---
DATE: 03/17/2017 SUBJECTIVE: The patient had a prior consult, which was dictated, but is not yet in the system. The patient is well known to me. He has a history of locally advanced bladder cancer. Yesterday, the patient had a right nephrostomy tube placed for right hydronephrosis given a large bladder mass. The patient is feeling well, still tired. He is seen in his room. He is in no acute distress. PHYSICAL EXAMINATION: GENERAL: He is afebrile. VITAL SIGNS: Temperature of 98.6, pulse 63, blood pressure 113/64, respirations 20. ABDOMEN: Soft, nontender and nondistended. No palpable mass. The nephrostomy tube is draining well, lightly blood tinged urine. The Tang catheter which is in place, draining mildly blood tinged urine. There are some clots noted in the bag. LABORATORY DATA: Hemoglobin up to 11.3 yesterday after transfusion, creatinine was 2.7 yesterday, none noted from today. IMPRESSION AND PLAN: This is an 86-year-old male with locally advanced bladder cancer. Plan is to continue medical therapy at this point. If the patient can be in shape, I will plan to perform a cystoscopy with further resection for local control on Monday. Please keep the patient n.p.o. after midnight on Monday for operating room on Monday unless any medical issues arise, then we will have to hold off. His condition remains guarded. Ld Hemphill MD
[2017-03-18] MEDS: Sodium Chloride 0.45% 1,000 ML IV SCH (01:47)
[2017-03-18] MEDS: Piperacillin/Tazobact 3.375 gm 100 ML IVPB SCH ×3 (05:52→21:15)
[2017-03-18 07:48] LABS: EOS % 0.1 % (1.5-5.0); GRAN # 11.48 (1.4-6.5); GRAN % 94.7 % (50.0-68.0); HEMOGLOBIN 9.8 gm/dL (14.0-18.0); LYMPH # 0.2 (1.2-3.4); LYMPH % 1.8 % (22.0-35.0); MEAN CORPUSCULAR HGB CONC 31.2 g/dl (31.0-37.0); MEAN PLATELET VOLUME 9.4 fl (7.0-11.0); MONO # 0.4 (0.1-0.6); MONO % 3.4 % (1.0-6.0); PLATELET COUNT 109 10^3/uL (120.0-450.0); RBC 4.08 10^6/uL (3.5-6.1); RED CELL DISTRIBUTION WIDTH 22.9 % (11.5-14.5); WHITE BLOOD COUNT 12.1 10^3/ul (4.5-11.0)
[2017-03-18 07:51] LABS: ALB/GLOB RATIO 0.8 (1.1-1.8); ALBUMIN 2.1 g/dL (3.0-4.8); CALCIUM 7.9 mg/dL (8.4-10.5)
[2017-03-18] MEDS: Bacitracin 500 Units/gm Oint Foilpak UD TOP SCH (09:50)
[2017-03-18] MEDS: Pantoprazole 40 mg EC Tab PO SCH (09:51)
[2017-03-18] MEDS: POLYETHYLENE GLYCOL 3350 17 GM/Dose PACKET PO SCH (09:53)
--- NOTE | 2017-03-18 16:32 | CP.PCM.PN ---
Subjective - Date & Time of Evaluation Date of Evaluation: 03/18/17 Time of Evaluation: 11:55 - Subjective Subjective: Comfortable in bed, not in distress, afebrile. Objective - Vital Signs/Intake and Output Vital Signs (last 24 hours): Temp Pulse Resp BP Pulse Ox 97.9 F 96 H 22 134/78 97 03/18/17 07:59 03/18/17 07:59 03/18/17 07:59 03/18/17 07:59 03/18/17 07:59 Intake and Output: 03/18/17 03/18/17 06:59 18:59 Intake Total 240 Output Total 1275 Balance -1035 - Medications Medications: Current Medications Acetaminophen (Tylenol 325mg Tab) 650 mg PO Q4H PRN PRN Reason: fever > 100.5 Last Admin: 03/17/17 04:32 Dose: 650 mg Amiodarone HCl (Cordarone) 200 mg PO QAM [facility] Last Admin: 03/17/17 09:28 Dose: Not Given Atorvastatin Calcium (Lipitor) 20 mg PO DAILY [facility] Last Admin: 03/17/17 09:27 Dose: Not Given Bacitracin (Bacitracin) 1 ea TOP DAILY [facility] Last Admin: 03/17/17 09:28 Dose: Not Given Benzonatate (Tessalon Perles) 100 mg PO TID [facility] Last Admin: 03/17/17 17:02 Dose: 100 mg Carvedilol (Coreg) 3.125 mg PO DAILY [facility] Last Admin: 03/17/17 09:28 Dose: Not Given Docusate Sodium (Colace) 100 mg PO BID [facility] Last Admin: 03/17/17 17:02 Dose: 100 mg Iron Sucrose 200 mg/ Sodium (Chloride) 110 mls @ 110 mls/hr IVPB DAILY [facility] Stop: 03/18/17 10:59 Last Admin: 03/17/17 09:44 Dose: 110 mls/hr Piperacillin Sod/Tazobactam Sod (Zosyn 3.375 In Ns 100ml) 100 mls @ 200 mls/hr IVPB Q8 [facility] PRN Reason: Protocol Stop: 03/24/17 09:16 Last Admin: 03/18/17 05:52 Dose: 200 mls/hr Lisinopril (Zestril) 10 mg PO QAM [facility] Last Admin: 03/17/17 09:28 Dose: Not Given Pantoprazole Sodium (Protonix Ec Tab) 40 mg PO QAM [facility] Last Admin: 03/17/17 09:27 Dose: Not Given Polyethylene Glycol (Miralax) 17 gm PO DAILY [facility] Last Admin: 03/17/17 12:35 Dose: 17 gm Sitagliptin Phosphate (Januvia) 50 mg PO DAILY [facility] Last Admin: 03/17/17 09:27 Dose: Not Given Tamsulosin HCl (Flomax) 0.4 mg PO DAILY [facility] Last Admin: 03/17/17 09:27 Dose: Not Given - Labs Labs: 03/18/17 07:35 03/18/17 07:35 PT 13.9 Seconds (9.9-11.8) H 03/17/17 16:25 INR 1.29 (0.93-1.08) H 03/17/17 16:25 APTT 47.6 Seconds (23.7-30.8) H 03/17/17 16:25 - Constitutional Appears: Non-toxic, No Acute Distress - Head Exam Head Exam: NORMAL INSPECTION - ENT Exam ENT Exam: Mucous Membranes Moist - Neck Exam Neck Exam: absent: Lymphadenopathy, Meningismus - Respiratory Exam Respiratory Exam: Decreased Breath Sounds - Cardiovascular Exam Cardiovascular Exam: +S1, +S2 - GI/Abdominal Exam GI & Abdominal Exam: Soft. absent: Tenderness Assessment and Plan - Assessment and Plan (Free Text) Plan: Assessment consider sepsis from prostatitis and left sided pyelonephritis/pyonephrosis as well as possible colitis S/P left sided nephrostomy tube placement POD #2, growing gram negative bacilli bladder cancer DM CAD S/P PCI chronic anemia Plan continue Zosyn pending identification and sensitivities of the gram negative bacilli in the fluid from the kidneys; reviewed CT scan of the abdomen and pelvis will continue to monitor clinical response and fever curve
--- NOTE | 2017-03-18 17:10 | PN ---
SUBJECTIVE: The patient is currently seen on 3R. He is comfortable, lying supine in bed. The patient has a left percutaneous nephrostomy bag with blood-tinged urine. The patient continues on IV antibiotic therapy for his Proteus urinary tract infection. MEDICATIONS: Medication list reviewed. The patient is on bacitracin, Colace, amiodarone, Coreg, Flomax, IV iron, Januvia, Lipitor, MiraLax, Protonix, Tessalon Perles, Tylenol p.r.n., Zestril and Zosyn. OBJECTIVE: INTAKE/OUTPUT: Intake 720, output 1575. VITAL SIGNS: Blood pressure is 134/78, temperature 97.9, respiratory rate is 22 with a pulse of 96. HEENT: Shows him to be normocephalic, atraumatic. Conjunctivae are pale. Sclerae are nonicteric. NECK: Supple. No neck vein distention. CHEST: Clear to auscultation and percussion. No rales. No rhonchi. No wheezing. CARDIOVASCULAR: S1 and S2 are normal. No murmurs, rubs, or gallops noted. ABDOMEN: Soft. Bowel sounds normal. No rebound or guarding. No masses. BACK: Positive for a left percutaneous nephrostomy tube. EXTREMITIES: No lower extremity cyanosis, clubbing or edema. LABORATORY DATA AND IMAGING: Abdominal and pelvic CT scan done one week ago was positive for bilateral hydronephrosis with a new left-sided hydro and left hydroureter. Hence, the patient had a left percutaneous nephrostomy tube placed. LABORATORY DATA: CBC; white blood cell count 12.1, hemoglobin 9.8 with a platelet count of 109,000. Chemistries; electrolytes, sodium 137, potassium 4.8, chloride 111 with a CO2 of 18, BUN 42 with a creatinine of 2.7, glucose is 162, calcium is 7.9 with an albumin of 2.1. Liver enzymes are normal. BUN has remained stable in the 40 range. Lowest BUN levels have been in the 30s. Creatinine is down from 3.6 down to 2.7. His baseline is 2.1. Microbiology positive for Proteus urinary tract infection. Repeat urines have been negative. Repeat blood cultures have been negative. ASSESSMENT: 1. Bladder cancer with hematuria with bilateral hydronephrosis with a new left-sided hydronephrosis with hydroureter. Hence, the patient had a left percutaneous nephrostomy tube placed, which is currently draining blood-tinged urine. 2. History of severe anemia, perhaps secondary to bleeding. The patient received 2 units of packed red blood cells earlier this week. Continue to monitor hemoglobin closely. Hemoglobin is slightly low at 9.8, down from 10.5. 3. Acute renal failure superimposed on chronic kidney disease stage IV. Baseline creatinine is in the low 2 range. Hopefully with resolution of the obstructive uropathy and treatment of his urinary tract infection, the patient will return to baseline levels. 4. Nos-hokksfb-sltaaddrz diabetes mellitus, currently controlled on present medical therapy. 5. History of hypertension, currently stable on current medical therapy. PLAN: 1. Continue to monitor the patient closely with followup of daily labs. 2. Complete a course of IV antibiotic therapy for Proteus urinary tract infection. 3. Continue Urology followup in light of his bilateral hydronephrosis, status post left percutaneous nephrostomy tube placement. [facility] # [id number]
[2017-03-19] MEDS: Piperacillin/Tazobact 3.375 gm 100 ML IVPB SCH (06:23)
[2017-03-19 07:54] LABS: BASO # 0.01 K/mm3 (0.0-2.0); BASO % 0.1 % (0.0-3.0); EOS # 0.1 (0.0-0.7); EOS % 0.5 % (1.5-5.0); GRAN # 10.56 (1.4-6.5); GRAN % 92.4 % (50.0-68.0); HEMOGLOBIN 9.8 gm/dL (14.0-18.0); LYMPH # 0.3 (1.2-3.4); MEAN CELL VOLUME 77.1 fL (80.0-105.0); MEAN CORPUSCULAR HEMOGLOBIN 23.4 pg (25.0-35.0); MEAN CORPUSCULAR HGB CONC 30.3 g/dl (31.0-37.0); MONO # 0.5 (0.1-0.6); PLATELET COUNT 115 10^3/uL (120.0-450.0); RBC 4.19 10^6/uL (3.5-6.1); RED CELL DISTRIBUTION WIDTH 23.5 % (11.5-14.5); WHITE BLOOD COUNT 11.4 10^3/ul (4.5-11.0)
[2017-03-19 08:14] LABS: ALB/GLOB RATIO 0.8 (1.1-1.8); CALCIUM 7.6 mg/dL (8.4-10.5); MAGNESIUM 1.6 mg/dL (1.7-2.2)
[2017-03-19] MEDS: POLYETHYLENE GLYCOL 3350 17 GM/Dose PACKET PO SCH (09:32)
[2017-03-19] MEDS: Bacitracin 500 Units/gm Oint Foilpak UD TOP SCH (09:32)
[2017-03-19] MEDS: Pantoprazole 40 mg EC Tab PO SCH (09:32)
[2017-03-19] MEDS: ceFAZolin 1 gm in NS 1 GM/100 ML BAG IVPB SCH ×2 (10:53→21:31)
--- NOTE | 2017-03-19 13:43 | CP.PCM.PN ---
Subjective - Date & Time of Evaluation Date of Evaluation: 03/19/17 Time of Evaluation: 11:25 - Subjective Subjective: Has no abdominal pain, no fevers overnight, not in distress. Objective - Vital Signs/Intake and Output Vital Signs (last 24 hours): Temp Pulse Resp BP Pulse Ox 97.3 F L 51 L 18 132/60 97 03/19/17 07:30 03/19/17 07:30 03/19/17 07:30 03/19/17 07:30 03/19/17 07:30 Intake and Output: 03/19/17 03/19/17 06:59 18:59 Intake Total 120 Output Total 550 Balance -430 - Medications Medications: Current Medications Acetaminophen (Tylenol 325mg Tab) 650 mg PO Q4H PRN PRN Reason: fever > 100.5 Last Admin: 03/19/17 03:16 Dose: 650 mg Amiodarone HCl (Cordarone) 200 mg PO QAM [facility] Last Admin: 03/18/17 09:50 Dose: 200 mg Atorvastatin Calcium (Lipitor) 20 mg PO DAILY [facility] Last Admin: 03/18/17 09:50 Dose: 20 mg Bacitracin (Bacitracin) 1 ea TOP DAILY [facility] Last Admin: 03/18/17 09:50 Dose: 1 ea Benzonatate (Tessalon Perles) 100 mg PO TID [facility] Last Admin: 03/18/17 17:54 Dose: 100 mg Carvedilol (Coreg) 3.125 mg PO DAILY [facility] Last Admin: 03/18/17 09:53 Dose: 3.125 mg Docusate Sodium (Colace) 100 mg PO BID [facility] Last Admin: 03/18/17 17:54 Dose: 100 mg Piperacillin Sod/Tazobactam Sod (Zosyn 3.375 In Ns 100ml) 100 mls @ 200 mls/hr IVPB Q8 [facility] PRN Reason: Protocol Stop: 03/24/17 09:16 Last Admin: 03/19/17 06:23 Dose: 200 mls/hr Lisinopril (Zestril) 10 mg PO QAM [facility] Last Admin: 03/18/17 09:51 Dose: 10 mg Pantoprazole Sodium (Protonix Ec Tab) 40 mg PO QAM [facility] Last Admin: 03/18/17 09:51 Dose: 40 mg Polyethylene Glycol (Miralax) 17 gm PO DAILY [facility] Last Admin: 03/18/17 09:53 Dose: 17 gm Sitagliptin Phosphate (Januvia) 50 mg PO DAILY [facility] Last Admin: 03/18/17 09:50 Dose: 50 mg Tamsulosin HCl (Flomax) 0.4 mg PO DAILY [facility] Last Admin: 03/18/17 09:51 Dose: 0.4 mg - Labs Labs: 03/19/17 07:00 03/18/17 07:35 PT 13.9 Seconds (9.9-11.8) H 03/17/17 16:25 INR 1.29 (0.93-1.08) H 03/17/17 16:25 APTT 47.6 Seconds (23.7-30.8) H 03/17/17 16:25 - Constitutional Appears: Non-toxic, No Acute Distress - Head Exam Head Exam: NORMAL INSPECTION - ENT Exam ENT Exam: Mucous Membranes Moist - Neck Exam Neck Exam: absent: Lymphadenopathy, Meningismus - Respiratory Exam Respiratory Exam: Decreased Breath Sounds - Cardiovascular Exam Cardiovascular Exam: +S1, +S2 - GI/Abdominal Exam GI & Abdominal Exam: Soft. absent: Tenderness Additional comments: right nephrostomy tube in place Assessment and Plan - Assessment and Plan (Free Text) Plan: Assessment consider sepsis from prostatitis and left sided pyelonephritis/pyonephrosis as well as possible colitis S/P left sided nephrostomy tube placement POD #3, growing Proteus bladder cancer DM CAD S/P PCI chronic anemia Plan changed antibiotics to Cefazolin and continue to monitor clinically; reviewed CT scan of the abdomen and pelvis
--- NOTE | 2017-03-19 19:34 | CP.PCM.PN ---
Subjective - Date & Time of Evaluation Date of Evaluation: 03/19/17 Time of Evaluation: 17:00 - Subjective Subjective: No acute complaints. 12 ROS negative. Denies pains Objective - Vital Signs/Intake and Output Vital Signs (last 24 hours): Temp Pulse Resp BP Pulse Ox 97.3 F L 51 L 18 132/60 97 03/19/17 07:30 03/19/17 09:31 03/19/17 07:30 03/19/17 09:31 03/19/17 07:30 Intake and Output: 03/19/17 03/20/17 18:59 06:59 Intake Total 840 Output Total 950 Balance -110 - Medications Medications: Current Medications Acetaminophen (Tylenol 325mg Tab) 650 mg PO Q4H PRN PRN Reason: fever > 100.5 Last Admin: 03/19/17 03:16 Dose: 650 mg Amiodarone HCl (Cordarone) 200 mg PO QAM [facility] Last Admin: 03/19/17 09:32 Dose: 200 mg Atorvastatin Calcium (Lipitor) 20 mg PO DAILY [facility] Last Admin: 03/19/17 09:32 Dose: 20 mg Bacitracin (Bacitracin) 1 ea TOP DAILY [facility] Last Admin: 03/19/17 09:32 Dose: 1 ea Benzonatate (Tessalon Perles) 100 mg PO TID [facility] Last Admin: 03/19/17 17:20 Dose: 100 mg Carvedilol (Coreg) 3.125 mg PO DAILY [facility] Last Admin: 03/19/17 09:32 Dose: 3.125 mg Docusate Sodium (Colace) 100 mg PO BID [facility] Last Admin: 03/19/17 17:20 Dose: 100 mg Cefazolin Sodium (Ancef 1gm In Ns) 1 gm in 100 mls @ 100 mls/hr IVPB Q12 [facility] PRN Reason: Protocol Last Admin: 03/19/17 10:53 Dose: 100 mls/hr Lisinopril (Zestril) 10 mg PO QAM [facility] Last Admin: 03/19/17 09:31 Dose: 10 mg Pantoprazole Sodium (Protonix Ec Tab) 40 mg PO QAM [facility] Last Admin: 03/19/17 09:32 Dose: 40 mg Polyethylene Glycol (Miralax) 17 gm PO DAILY [facility] Last Admin: 03/19/17 09:32 Dose: 17 gm Sitagliptin Phosphate (Januvia) 50 mg PO DAILY [facility] Last Admin: 03/19/17 09:32 Dose: 50 mg Tamsulosin HCl (Flomax) 0.4 mg PO DAILY [facility] Last Admin: 03/19/17 09:32 Dose: 0.4 mg - Labs Labs: 03/19/17 07:00 03/19/17 07:00 PT 13.9 Seconds (9.9-11.8) H 03/17/17 16:25 INR 1.29 (0.93-1.08) H 03/17/17 16:25 APTT 47.6 Seconds (23.7-30.8) H 03/17/17 16:25 - Constitutional Appears: Well - Respiratory Exam Respiratory Exam: Clear to Ausculation Bilateral, NORMAL BREATHING PATTERN - Cardiovascular Exam Cardiovascular Exam: REGULAR RHYTHM, +S1, +S2. absent: Murmur - GI/Abdominal Exam GI & Abdominal Exam: Bruit Additional comments: right nephrostomy tube in place with some bloody output - Extremities Exam Extremities Exam: Full ROM, Normal Capillary Refill, Normal Inspection. absent : Joint Swelling, Pedal Edema Assessment and Plan - Assessment and Plan (Free Text) Assessment: Mr. Beal chad 86 y/o man with pmhx significant for transitional bladder carcioma s/p XRT currently admitted with sepsis phyiology now thought to be urosepsis (prostatitis vs left sided pheylenephritis) s/p percutaneous nephrostomy tube placement with urinary cultures now growing proteus. Changed abx per ID recommendations. Continue diabetic and cardiac meds. PPx SCDs and PPI
[2017-03-20 07:08] LABS: ALB/GLOB RATIO 0.8 (1.1-1.8); BASO # 0.01 K/mm3 (0.0-2.0); BASO % 0.1 % (0.0-3.0); CALCIUM 7.5 mg/dL (8.4-10.5); EOS # 0.1 (0.0-0.7); EOS % 0.6 % (1.5-5.0); GRAN # 8.93 (1.4-6.5); GRAN % 92.1 % (50.0-68.0); HEMOGLOBIN 9.9 gm/dL (14.0-18.0); LYMPH # 0.4 (1.2-3.4); LYMPH % 3.9 % (22.0-35.0); MEAN CELL VOLUME 77.2 fL (80.0-105.0); MEAN CORPUSCULAR HEMOGLOBIN 23.1 pg (25.0-35.0); MEAN CORPUSCULAR HGB CONC 29.9 g/dl (31.0-37.0); MEAN PLATELET VOLUME 9.1 fl (7.0-11.0); MONO # 0.3 (0.1-0.6); MONO % 3.3 % (1.0-6.0); PLATELET COUNT 113 10^3/uL (120.0-450.0); RBC 4.29 10^6/uL (3.5-6.1); RED CELL DISTRIBUTION WIDTH 23.6 % (11.5-14.5); WHITE BLOOD COUNT 9.7 10^3/ul (4.5-11.0)
[2017-03-20] MEDS: ceFAZolin 1 gm in NS 1 GM/100 ML BAG IVPB SCH ×2 (09:51→21:39)
[2017-03-20] MEDS: Bacitracin 500 Units/gm Oint Foilpak UD TOP SCH (09:52)
[2017-03-20] MEDS: POLYETHYLENE GLYCOL 3350 17 GM/Dose PACKET PO SCH (09:53)
--- NOTE | 2017-03-20 09:53 | PN ---
DATE: 03/18/2017 Patient in room 367, bed 1. Family is at the bedside. SUBJECTIVE: This is an 86-year-old male with past medical history of bladder cancer with locally advanced disease despite recurrent TURB, intravascular injection of chemotherapy agents in the past by Dr. Ld Barnard and Dr. Marsh, has had slow progression of the disease, presented with hydronephrosis, recurrent hematuria and a large bladder mass for which he received palliative radiation back in 07/2016. Since then, he has several recurrent admissions to the hospital with hematuria and infection. The patient is currently in the hospital because he was brought onto initially to the hospital because of abdominal discomfort with diarrhea and some hematuria. Workup including CAT scan shows worsening hydronephrosis both right and left, right worse than the left. There was also evidence on the CAT scan the local tumor invading into the prostate and into the surrounding tissue including causing signs and symptoms of penetration into the colon suggestive of diverticulitis. The patient also had urinary infection consistent with Proteus in the urine. Subsequent to that, the patient developed temperature. He was thought to have nosocomial infection in the lung. In addition to that, the patient had a right nephrostomy tube put in [address] Anthony Espinosa under ultrasound guidance and kecia pus was obtained. The patient has the right nephrostomy tube in place and is still having some blood in the urine. Spoken to Dr. Anthony Espinosa. The patient is having nephrostomy flushed 3 times a day to prevent it from getting clogged. Subjectively, the patient is examined in bed. He is more awake, alert, and oriented. He is able to recognize me and his niece who is visiting him today. PHYSICAL EXAMINATION: GENERAL: The patient is examined in bed, appears to be nontoxic, hard of hearing, in no acute distress. VITAL SIGNS: Reveal the following, T-max is 98.4, pulse is 52, respirations 20, blood pressure is 108/56 with pulse ox of 96%. HEENT: Head is normocephalic, atraumatic. Conjunctivae pale. Sclerae are anicteric. Pupils are equally reactive to light and accommodation. Examination of the oropharynx, tongue to be moist. No oropharyngeal lesions are noted. NECK: Supple. There is no adenopathy. No jugular venous distention noted. LUNGS: Decreased breath sounds in the bases. CARDIOVASCULAR: S1, S2 normal. No gallop or murmur is heard. ABDOMEN: Soft. There is no rebound, rigidity, or guarding noted. No significant masses are felt. BACK: The patient to have a left-sided nephrostomy tube in place. EXTREMITIES: There is no cyanosis, clubbing or edema. NEUROLOGIC; As per the niece, the patient is more awake and alert and he was sitting out of bed yesterday and was able to walk a few steps. LABORATORY DATA: From today are reviewed. The patient's lab data reveals white count of 7.7, hemoglobin 11.3, hematocrit 36.7, platelet count of 144,000. Sodium is 137, potassium is 5.1, chloride is 111, CO2 is 17, BUN is 33, creatinine 2.7, and blood sugar is 257. MEDICATIONS: The patient's medications were reviewed. He is on Tylenol 650 mg q.4 hours p.r.n. He is on amiodarone 200 mg daily. He is on atorvastatin 20 mg daily, bacitracin topically to affected areas twice a day. He is on Tessalon Perles 100 mg t.i.d., Coreg 3.125 daily, he is on Colace 100 mg b.i.d., he is on iron infusions daily. He is on levofloxacin 250 mg IV every other day, he is on IV fluid daily half normal saline at 80 mL an hour, Zestril 10 mg p.o. daily, pantoprazole 40 mg daily, he is on Januvia 50 mg p.o. daily, he is on Flomax 0.4 mg daily. ASSESSMENT NOTES AND PLAN: The patient has locally advanced carcinoma of the bladder with bilateral hydronephrosis, now evidence of infection, probably related to the tumor infiltrating into the bladder and into the surrounding tissues, currently on antibiotics. Detailed discussion with the patient's family, told them that at this time more conservative approach should be most appropriate. He is not a candidate for any additional treatments given his age and other comorbid medical issues. We will treat him aggressively with antibiotic therapy and plan a supportive care after that. We will speak to as well as far as cancer management is concerned. Routine post-exam instructions have been given to the patient. Labs for a.m. have been requested. Marguerite Otoole MD
[2017-03-20] MEDS: Pantoprazole 40 mg EC Tab PO SCH (09:54)
[2017-03-20] MEDS ORDERED: Propofol 10 mg/ml Inj (20 ML) ONE (10:03)
[2017-03-20] MEDS ORDERED: Midazolam 2 MG/2 ML VIAL ONE (10:03)
[2017-03-20 10:34] LABS: INR 1.14 (0.93-1.08); PARTIAL THROMBOPLASTIN TIME 38.3 Seconds (23.7-30.8); PROTHROMBIN TIME 12.3 Seconds (9.9-11.8)
[2017-03-20] MEDS ORDERED: Etomidate 20 mg/10ml Inj IV ONE (10:34)
[2017-03-20] MEDS ORDERED: ePHEDrine 50 mg/ml Inj ONE (10:35)
[2017-03-20] MEDS ORDERED: Iohexol 240 (50 ml) ONE (10:48)
[2017-03-20] MEDS ORDERED: Succinylcholine 200 mg/10 ml Inj IV ONE (11:07)
[2017-03-20] MEDS ORDERED: Lactated Ringer's 1,000 ML IV SCH (11:45)
[2017-03-20] MEDS ORDERED: HYDROmorphone 0.5 mg/0.5 ml ISec IVP PRN (11:45)
--- NOTE | 2017-03-21 01:03 | OP ---
PROCEDURE DATE: 03/20/2017 PREOPERATIVE DIAGNOSES: 1. Bladder cancer. 2. Hydronephrosis. POSTOPERATIVE DIAGNOSES: 1. Bladder cancer. 2. Hydronephrosis. PROCEDURES: 1. Cystoscopy. 2. Transurethral resection of bladder tumor. 3. Fulguration of bladder tumor. ATTENDING SURGEON: Ld Hemphill MD ANESTHESIA: General. COMPLICATIONS: None. SPECIMEN: Bladder tumor chips was sent to pathology. DRAINS: A 22-Swedish 3-way Tang catheter. DESCRIPTION OF PROCEDURE: After informed consent was obtained, the patient was taken to the operating room and placed on the operating table and anesthesia was administered. The patient was then placed in dorsal lithotomy position and prepped and draped in the usual sterile fashion. First a 21-Swedish cystoscope was placed in the patient's urethra and advanced proximally under direct vision until the bladder was entered. A full survey inspection of the bladder was then performed, which revealed a very small capacity bladder. There was a large mass protruding into the bladder lumen, mostly from the right side and from the superior aspect of the bladder. It was extending along on to the left side. The trigone was somewhat pushed up, especially on the right side. There was a large open area on the left trigone, which did appear to be the left ureteral orifice, which was somewhat distorted by the mass. There was large amount of papillary tumor, some hemorrhagic and oozing noted on the posterior and lateral loving. At this point the cystoscope was withdrawn. A 26-Swedish resectoscope was passed using a resecting loop. The visible tumor was resected. Any bleeding points encountered were then controlled using electrocautery. After the visible tumor had been resected, a rollable electrode was passed and the tumor base along with most of the necrotic tumor from the large mass were then cauterized. The left orifice was left in situ. Given the nature of his low grade advanced bladder cancer, I did not place a stent, as it would likely be ineffectual. At this point, the inspection was made. There was good hemostasis. The chips were evacuated from the bladder and sent to pathology. The resectoscope was then withdrawn and a 22-Swedish 3-way Tang catheter was passed and placed straight to continuous bladder irrigation. The patient tolerated the procedure well. He was returned to supine position and taken to the recovery room awake in a stable condition. Ld Hemphill MD [facility] # [id number]
--- NOTE | 2017-03-21 01:26 | PN ---
DATE: 03/20/2017 SUBJECTIVE: The patient is seen lying in bed. He is awake, lethargic. PHYSICAL EXAMINATION VITAL SIGNS: Blood pressure 165/80, heart rate 68, respiratory rate 18, temperature 98.7. HEENT: Normocephalic, atraumatic. Positive pallor. NECK: Supple. No JVD. LUNGS: Bilateral equal air entry. No rales. CARDIAC: S1 and S2. Regular rate and rhythm. No murmur. No rubs. ABDOMEN: Obese, soft, nontender, bowel sounds present. EXTREMITIES: No lower extremity edema. INTAKE AND OUTPUT: 1000/2800. LABORATORY DATA: WBC 9.7, hemoglobin 9.9, hematocrit 33, platelets 113. Sodium 140, potassium 4.3, chloride 111, CO2 of 20, BUN 44, creatinine 2.3, glucose 218, calcium 7.5, albumin 2.0, corrected calcium is 8.9. Urine culture, proteus. ASSESSMENT: 1. Acute kidney injury superimposed on chronic kidney disease stage IV, resolving. 2. Bilateral hydronephrosis, status post right percutaneous nephrostomy. 3. Plan for cystoscopy and possible left ureteral stent today. 4. Severe anemia, bladder cancer, hematuria. 5. Nxf-sylsgzg-byoisllnw diabetes mellitus. 6. Hypertension. PLAN: 1. Continue IV antibiotics as per Infectious Disease recommendation. 2. Continue antihypertensives. 3. Continue to monitor fingersticks and Januvia. 4. May need IV fluids. Iva Martins MD
[2017-03-21 06:20] LABS: HEMOGLOBIN 10.3 gm/dL (14.0-18.0); MEAN CELL VOLUME 77.6 fL (80.0-105.0); MEAN CORPUSCULAR HEMOGLOBIN 23.3 pg (25.0-35.0); PLATELET COUNT 119 10^3/uL (120.0-450.0); RBC 4.42 10^6/uL (3.5-6.1); RED CELL DISTRIBUTION WIDTH 23.2 % (11.5-14.5); WHITE BLOOD COUNT 10.9 10^3/ul (4.5-11.0)
[2017-03-21 06:31] LABS: INR 1.15 (0.93-1.08); PARTIAL THROMBOPLASTIN TIME 36.2 Seconds (23.7-30.8); PROTHROMBIN TIME 12.4 Seconds (9.9-11.8)
[2017-03-21 06:46] LABS: ALB/GLOB RATIO 0.9 (1.1-1.8); ALBUMIN 2.1 g/dL (3.0-4.8); CALCIUM 7.8 mg/dL (8.4-10.5)
[2017-03-21 06:51] LABS: BAND 4 % (0-2); LYMPHOCYTE 5 % (22.0-35.0); MONOCYTE 1 % (1.0-6.0); NEUTROPHIL 90 % (50.0-70.0); PLATELET ESTIMATE LOW (NORMAL)
[2017-03-21 06:52] LABS: ANISOCYTOSIS 1+; OVALOCYTES 1+
--- NOTE | 2017-03-21 08:24 | CP.PCM.PN ---
Subjective - Date & Time of Evaluation Date of Evaluation: 03/21/17 Time of Evaluation: 08:21 - Subjective Subjective: PGY-[address] Otoole Pt needed tylenol for pain x 1 pink urine. no clot. CBI at gravity Objective - Vital Signs/Intake and Output Vital Signs (last 24 hours): Temp Pulse Resp BP Pulse Ox 98.7 F 65 21 151/72 H 94 L 03/21/17 07:59 03/21/17 07:59 03/21/17 07:59 03/21/17 07:59 03/21/17 07:59 Intake and Output: 03/21/17 03/21/17 06:59 18:59 Intake Total 360 360 Output Total 320 575 Balance 40 -215 - Medications Medications: Current Medications Acetaminophen (Tylenol 325mg Tab) 650 mg PO Q4H PRN PRN Reason: fever > 100.5 Last Admin: 03/20/17 13:03 Dose: 650 mg Amiodarone HCl (Cordarone) 200 mg PO QAM [facility] Last Admin: 03/20/17 09:52 Dose: Not Given Atorvastatin Calcium (Lipitor) 20 mg PO DAILY [facility] Last Admin: 03/20/17 09:53 Dose: Not Given Bacitracin (Bacitracin) 1 ea TOP DAILY [facility] Last Admin: 03/20/17 09:52 Dose: Not Given Benzonatate (Tessalon Perles) 100 mg PO TID [facility] Last Admin: 03/20/17 17:06 Dose: 100 mg Carvedilol (Coreg) 3.125 mg PO DAILY [facility] Last Admin: 03/20/17 09:52 Dose: Not Given Docusate Sodium (Colace) 100 mg PO BID [facility] Last Admin: 03/20/17 17:06 Dose: 100 mg Cefazolin Sodium (Ancef 1gm In Ns) 1 gm in 100 mls @ 100 mls/hr IVPB Q12 [facility] PRN Reason: Protocol Last Admin: 03/20/17 21:39 Dose: 100 mls/hr Lisinopril (Zestril) 10 mg PO QAM [facility] Last Admin: 03/20/17 09:54 Dose: Not Given Pantoprazole Sodium (Protonix Ec Tab) 40 mg PO QAM [facility] Last Admin: 03/20/17 09:54 Dose: Not Given Polyethylene Glycol (Miralax) 17 gm PO DAILY [facility] Last Admin: 03/20/17 09:53 Dose: Not Given Sitagliptin Phosphate (Januvia) 50 mg PO DAILY [facility] Last Admin: 03/20/17 09:53 Dose: Not Given Tamsulosin HCl (Flomax) 0.4 mg PO DAILY [facility] Last Admin: 03/20/17 09:53 Dose: Not Given - Labs Labs: 03/21/17 05:45 03/21/17 05:45 PT 12.4 Seconds (9.9-11.8) H 03/21/17 05:45 INR 1.15 (0.93-1.08) H 03/21/17 05:45 APTT 36.2 Seconds (23.7-30.8) H 03/21/17 05:45 - Constitutional Appears: No Acute Distress, Chronically Ill - Head Exam Head Exam: ATRAUMATIC, NORMAL INSPECTION, NORMOCEPHALIC - Eye Exam Eye Exam: EOMI, Normal appearance, PERRL Pupil Exam: NORMAL ACCOMODATION, PERRL - ENT Exam ENT Exam: Mucous Membranes Moist - Neck Exam Neck Exam: absent: Meningismus - Respiratory Exam Respiratory Exam: Clear to Ausculation Bilateral, Rhonchi. absent: Decreased Breath Sounds, Rales, Wheezes - Cardiovascular Exam Cardiovascular Exam: REGULAR RHYTHM, +S1, +S2 - GI/Abdominal Exam GI & Abdominal Exam: Distended, Soft, Normal Bowel Sounds. absent: Guarding, Rigid, Tenderness - Extremities Exam Extremities Exam: Normal Capillary Refill, Pedal Edema (slight). absent: Calf Tenderness - Back Exam Back Exam: absent: CVA tenderness (L), CVA tenderness (R) - Neurological Exam Neurological Exam: Alert, Awake, Oriented x3 - Psychiatric Exam Psychiatric exam: Normal Affect, Normal Mood - Skin Skin Exam: Dry, Normal Color Assessment and Plan - Assessment and Plan (Free Text) Plan: 86M, PMHx bladder cancer, locally advanced despite recuurent TURB, intravascular injection of chemotherapy, has slow progression of cancer, presented with hydronephrosis, recurrent hemautria, and a large bladder mass that he received palliative radiation in 07/2016. CT scan showed local tumor invading into prostate and surrounding tissue/colon. Pt has UTI with proteus. He also develped HCAP at this hospital stay. Pt had R neprhostomy tube placment , still with hematuria. Pt underwent cystocopy TUR bladder tumor (03/20/17). Hemautria on CBI, NS on gravity Flushed neprostomy tube at least 2-3/d Prostatitis vs L pyelonephritis vs colitis - CXR - RLL infiltrate - proteus on nephrostomy tube - Cefazolin 7-14d Hx bladder ca with new Left hydronephrosis and 7 mm ureteral calculus - flomax - percutanoues nephrostomy tube and ureteral stent (03/17) - cystoscopy and tumor excision (03/20) - should help the hydronephrosis -Dr. Otoole has met with family and pt, who wants only supportive care. No further plan for chemo or immunotherapy Anemia, Severe microcytic: GI blood loss vs hematuria vs CKD - Hb stable at 10 - s/p pRBC - on Venofar IV; feosol 325 daily - pending stool for occult blood Now constipated - resolved persistent diarrhea - resolved - stool culture (-) - Cdiff negative NIDDM - A1C 6.9 - Januvia renal dose @ 50mg/day MARCIA on CKD - baseline creatinine 2 - avoid nephrotoxins - Off Metformin - OK to con't Lisinopril per nephro - Resolving MARCIA Hx CAD s/p PCI - amiodarone, lipitor, coreg, lisiniprol Prophylaixs - protonix, SCD s/r/d/w Dr. Otoole
--- NOTE | 2017-03-21 08:51 | PN ---
DATE: The patient is in room 367, bed #1. SUBJECTIVE: This is an 86-year-old man with a past medical history of bladder cancer with locally advanced disease despite recurrent TURB, intravascular injection of chemotherapy agents in the past by Dr. Ld Barnard and Dr. Marsh. He has had a slow progression of disease presented with hydronephrosis, recurrent hematuria and large bowel mass for which he received palliative radiation back in 07/2016. Since then he has had several recurrent admissions to the hospital with hematuria and infection. The patient is currently in the hospital when he was brought in initially because of increasing abdominal discomfort or diarrhea, no hematuria. Workup including CAT scan showed worsening hydronephrosis both the right and the left, right worse than the left. There was also evidence in the CAT scan where the local tumor invading to the prostate and into the surrounding tissues including causing signs and symptoms of penetration to the colon suggestive of diverticulitis. The patient also had urinary tract infection consistent with proteus in the urine, subsequent to that the patient developed temperature, thought to have nosocomial infection in the lung. In addition to that the patient had a right nephrostomy tube put in [address] Anthony Espinosa with ultrasound guidance and purulent pus like urine was obtained. The patient had an nephrostomy tube in place and was having some blood in the urine. The patient is having nephrotomy tube flushed 3 times a to prevent it from getting clogged. OBJECTIVE: The patient is examined in bed. He went today for TURB to resect as much as the bladder tumor as possible to make it possible for the patient to urinate . The patient is otherwise comfortable, awake, alert and oriented. He is able to recognize me at this time. PHYSICAL EXAMINATION: GENERAL: The patient is examined on bed, appears to be nontoxic, hard of hearing, in no acute distress. VITAL SIGNS: Stable as stated in the chart. HEENT: Head is normocephalic and atraumatic. Conjunctiva clear. Sclerae anicteric. Pupils are equally reactive to light and accommodation. Examination of the oropharynx, there is no oropharyngeal lesions. NECK: Supple. There is no adenopathy. No jugular venous distention noted. CARDIOVASCULAR: Reveals S1 and S2 to be normal. No gallop or murmur is heard. LUNGS: Clear to percussion and auscultation. ABDOMEN: Soft, nontender. No rebound, rigidity or guarding is noted. No significant masses are found. BACK: Reveals the patient to have a right-sided nephrostomy in place. EXTREMITIES: No cyanosis, clubbing or edema. CENTRAL NERVOUS SYSTEM: No focal deficits are noted. LABORATORY DATA: From today were also reviewed and they reveals the following; Today's CBC reveals white count of 9.7, hemoglobin is 9.9, hematocrit 33 and platelet count of 113,000. Chemistry revealed sodium of 140, K is 4.3, chloride 111, CO2 of 20, BUN of 44, creatinine is 3.3, random sugars 218, calcium is 7.5. AST and ALT are normal. Alkaline phosphatase is 156. Total protein is 4 with an albumin of 2, An A/G ratio of 0.8. Procalcitonin on admission is 0.67. MEDICATIONS: The patient's medications are reviewed. He is on Tylenol 650 mg q.4 hours p.r.n. He is on amiodarone 200 mg daily, atorvastatin 20 mg daily, Bacitracin topically to affected area twice a day. He is on Tessalon Perles 100 mg t,i,d., Coreg 3.125 mg daily, he is on Colace 100 mg b.i.d. He is on iron infusions, he is on levofloxacin 250 mg IV every other day. He is on IV fluids D5 with half normal saline 80 mL an hour, Zestril 10 mg p.o. daily, pantoprazole 40 mg daily, Januvia 50 mg daily. He is also on 0.4 mg of Flomax daily. ASSESSMENT AND PLAN: An 86-year-old white male with recurrent of the urinary bladder with urosepsis, right nephrostomy status post transurethral resection of the bladder. There is no evidence of infection prior with now evidence of infection probably related to treatment pertaining to the bladder and surrounding tissues. Detailed discussion with the patient's family, we are taking conservative approach at this time. Continue supportive care and follow the labs carefully. Next, watch out postprocedure still having hematuria and we will have to make sure it abates over the next 48 hours. On pre-admitting neurologist as well for their input on the condition of the patient. Labs for a.m. have been requested . We will continue to monitor the patient. Marguerite Otoole MD cc:
--- NOTE | 2017-03-21 09:54 | PN ---
DATE: 03/17/2017 SUBJECTIVE: The patient is seen in his room 367, bed number 1 this Monday morning, comfortable in no acute distress. He is scheduled for percutaneous nephrostomy later today with Dr. Anthony Espinosa to alleviate the hydronephrosis on the right side. I have seen this Monday afternoon, procedure was tolerated well. The patient was in bed and comfortable with minimal pain OBJECTIVE:. Blood tinged urine was draining from the right hydro-nephrostomy bag, he was in good spirits. IMPRESSION AND PLAN: I explained to the patient and spoke with his niece about work plan. Plan he will ultimately need cystoscopy with Dr. Hemphill,and perhaps conditional chemotherapy. His niece reported that radiation is no longer enough that he received maximum dose. I will continue to coordinate efforts further weekend. He will remain on antibiotics as the urine from the nephrostomy drainage procedure was quite cloudy. Cultures and urinalysis were sent. Inder Li MD
[2017-03-21] MEDS: ceFAZolin 1 gm in NS 1 GM/100 ML BAG IVPB SCH ×2 (10:01→22:50)
[2017-03-21] MEDS: Bacitracin 500 Units/gm Oint Foilpak UD TOP SCH (10:02)
[2017-03-21] MEDS: Pantoprazole 40 mg EC Tab PO SCH (10:02)
[2017-03-21] MEDS: POLYETHYLENE GLYCOL 3350 17 GM/Dose PACKET PO SCH (10:02)
--- NOTE | 2017-03-21 10:31 | PN ---
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 PHYSICAL EXAMINATION: NEUROLOGIC: He is awake, alert, and upon arousal, mental status is at baseline. He has no neurologic deficit. He tolerated percutaneous nephrostomy tube well yesterday and blood-tinged urine is noted draining in that bag. VITAL SIGNS: Otherwise, stable. He is otherwise doing well. Hemoglobin and hematocrit are holding steady. He continues to be followed by GI and and interventional radiology. During the course of the weekend, I explained to the patient that our plan would be not do antibiotics, hydration to flush the kidneys, and monitor his labs for possible cystoscopy early next week. Inder Li MD
--- NOTE | 2017-03-21 10:46 | PN ---
DATE: 03/16/2017 SUBJECTIVE: The patient was seen in room 367, bed 1 this morning, resting comfortably in bed in no acute distress. Urology and Interventional Radiology have been consulted regarding his bilateral hydronephrosis, bladder tumor, and the possibility of a percutaneous nephrostomy tube being needed. I also spoke with GI as the patient has been quite anemic and has been transfused and has a history of multiple colonic polyps. PHYSICAL EXAMINATION GENERAL: He is awake, alert, and in good very spirits for the 86-year-old man that he is with underling coronary artery disease and episode of sudden , COPD, and lifetime smoker. LUNGS: Good aeration right and left. ABDOMEN: Soft. GASTROINTESTINAL: Urine in the Tang was clear. EXTREMITIES: Showed no edema. PLAN: We will continue to coordinate with as well as Interventional Radiology for possible percutaneous nephrostomy tomorrow. Inder Li MD
--- NOTE | 2017-03-21 16:31 | PN ---
DATE: 03/21/2017 SUBJECTIVE: The patient is in bed in no acute distress. The patient was seen early this morning in room 367, bed 1. No fevers and chills. PHYSICAL EXAMINATION VITAL SIGNS: Temperature is 98, blood pressure is 151/72, respiratory rate of 21, and heart rate of 65. HEENT: Unremarkable. NECK: Supple. LUNGS: Decreased breath sounds. HEART: Normal S1 and S2. ABDOMEN: Soft and nontender. LABORATORY DATA: Reve[place] [address], hemoglobin is 10. Chemistries reveals a BUN of 39, creatinine of 2.2, procalcitonin 0.67. Urinalysis is noted. Microbiology is noted. ASSESSMENT AND PLAN: An 86-year-old with sepsis, with prostatitis, left-sided pyelonephritis and pyelonephrosis, possible colitis, on cefazolin and has left-sided nephrostomy tube placement, post procedure day #4. Growing proteus in a patient with bladder cancer, diabetes, coronary artery disease status post PCI. Rmeington Rodríguez MD
--- NOTE | 2017-03-21 16:37 | PN ---
DATE: 03/19/2017 SUBJECTIVE: The patient remains in room #367, bed #1, this Monday late evening when I made rounds. He is in good spirits. Right-sided percutaneous nephrostomy tube is in place and continues to drain slightly blood-tinged urine. I explained to him our concerns about the bladder tumor recurring and additional treatments needing to be required. He is scheduled for a cystoscopy tomorrow and possible inferiorizing the nephrostomy tube to a ureteral stent, but I will leave that to and Interventional Radiology. Vital signs remained stable. He is hemodynamically stable and in good spirits. We will continue to follow closely. Inder Li MD
[2017-03-21 17:37] VITALS: RESP 20
--- NOTE | 2017-03-21 21:28 | PN ---
DATE: SUBJECTIVE: Patient is currently seen on 3R. He is status post cystoscopy with placement of a left ureteral stent. This is for new left-sided hydronephrosis, hydroureter with previous placement of a left percutaneous nephrostomy tube. Patient continues on bladder irrigation. Urine appears to be clear, both in the Tang collecting bag and in the nephrostomy collecting bag on the left side. MEDICATIONS: Medication list reviewed. Patient is currently on Ancef, bacitracin, Colace, amiodarone, Coreg, Flomax, Januvia, Lipitor, Miralax, Protonix, Tessalon Perles, Tylenol p.r.n. and Zestril. OBJECTIVE INTAKE/OUTPUT: Intake including CBI 5360, output 62721. VITAL SIGNS: Blood pressure 151/72, temperature 98.7, pulse of 65 with a respiratory rate of 21. HEENT: Normocephalic, atraumatic, conjunctivae are pale. Sclerae nonicteric. NECK: Supple. No neck vein distention. CHEST: Clear to auscultation and percussion. No rales, no rhonchi, no wheezing. CARDIOVASCULAR: S1 and S2 are normal. No murmurs, rubs, or gallops. ABDOMEN: Soft. Bowel sounds normal. No rebound or guarding. No masses. BACK: Positive for a left percutaneous nephrostomy tube draining clear urine. : Tang catheter in place. EXTREMITIES: No lower extremity cyanosis, clubbing or edema. LABORATORY DATA AND IMAGING: CBC: White blood cell count 10.9, hemoglobin 10.2 with a platelet count of 119,000. Chemistries show normal electrolytes. BUN 39 with a creatinine of 2.2. Patient is currently down to baseline levels. Glucose 241. Calcium 7.8 with an albumin of 2.1. Microbiology positive for proteus in the urine. Repeat urine cultures have been negative. ASSESSMENT: 1. Bladder cancer with hematuria with bilateral hydronephrosis with new onset left-sided hydronephrosis with hydroureter status post left percutaneous nephrostomy tube placement status post cystoscopy with left ureteral stent placement. Patient is currently draining clear urine, continuing on continuous bladder irrigation. 2. History of anemia secondary to genitourinary bleeding. Patient has received transfusions during the hospitalization. Continue to monitor hemoglobins closely. Hemoglobin appears to be stable at 10.3. 3. Acute renal failure superimposed on chronic kidney stage IV. Baseline creatinine is in the low 2 range, baseline BUN is in the mid 30 range. He appears to have returned to baseline with successful resolution of his obstructive uropathy. 4. History of noninsulin-dependent diabetes mellitus. Sugars are currently controlled on present medication. 5. History of hypertension. Blood pressure control is acceptable on current medications. 6. Proteus urinary tract infection. Patient has completed a course of antibiotic therapy. PLAN: 1. Continue to monitor adequate Is and Os subtracting the continuous bladder irrigation from the totals. 2. Continue to monitor labs on a daily basis. 3. Perhaps as per guidance from urology, we will clip the nephrostomy tube and see whether or not patient is making adequate amount of urine from the left ureter that had been stented. If this is the case, perhaps removal of nephrostomy tube. 4. Continue to monitor labs on a daily basis. Catracho Lee MD
--- NOTE | 2017-03-22 03:06 | PN ---
DATE: 03/21/2017 SUBJECTIVE: The patient was seen this Monday at noon hour in room 367, bed 1. He is awake in good spirits, looking forward to additional physical therapy and increasing ambulation. He is relatively comfortable as far his nephrostomy draining tube and post-cystoscopy and excision of the bladder tumor yesterday. PHYSICAL EXAMINATION CARDIOPULMONARY: Heart is regular and not tachycardic. LUNGS: Show good aeration right and left. EXTREMITIES: Show no edema. IMPRESSION: 1. Bladder tumor with obstructive uropathy, hydronephrosis. 2. Coronary artery disease, status post sudden several years ago. 3. Chronic obstructive pulmonary disease. 4. History of tobacco use. PLAN: We will coordinate removal of cystoscopy tube with urology if stent needs to be placed, then transitional care unit for additional physical therapy and conditioning. I spoke with patient's niece as well as the patient; they are not interested and do not want to go away to a subacute care facility, would not sure either yet the physical therapy they know should be so effective here at the [facility] in TCU where the patient has been before. Message was passed on to shelter case manager and nursing staff. Hopefully, the patient will be ready for transfer to TCU on , two days from today. Inder Li MD
[2017-03-22 06:35] LABS: INR 1.11 (0.93-1.08); PARTIAL THROMBOPLASTIN TIME 34.9 Seconds (23.7-30.8)
[2017-03-22 06:53] LABS: ALB/GLOB RATIO 0.8 (1.1-1.8); ALBUMIN 2.1 g/dL (3.0-4.8); CALCIUM 7.5 mg/dL (8.4-10.5); MAGNESIUM 1.5 mg/dL (1.7-2.2)
[2017-03-22 06:54] LABS: HEMOGLOBIN 10.4 gm/dL (14.0-18.0); MEAN CELL VOLUME 77.8 fL (80.0-105.0); MEAN CORPUSCULAR HEMOGLOBIN 23.3 pg (25.0-35.0); PLATELET COUNT 129 10^3/uL (120.0-450.0); RBC 4.46 10^6/uL (3.5-6.1); RED CELL DISTRIBUTION WIDTH 22.8 % (11.5-14.5); WHITE BLOOD COUNT 10.9 10^3/ul (4.5-11.0)
--- NOTE | 2017-03-22 07:25 | CP.PCM.PN ---
Subjective - Date & Time of Evaluation Date of Evaluation: 03/22/17 Time of Evaluation: 07:20 - Subjective Subjective: PGY-[address] Otoole Pt engaged in physical therapy yesterday Urine clear, yellow, not cloudy back pain chronic, controlled by tylenol prn No acute complaint Objective - Vital Signs/Intake and Output Vital Signs (last 24 hours): Temp Pulse Resp BP Pulse Ox 97.7 F 63 20 132/71 94 L 03/21/17 16:00 03/21/17 16:00 03/21/17 16:00 03/21/17 16:00 03/21/17 16:00 Intake and Output: 03/22/17 03/22/17 06:59 18:59 Intake Total 420 Output Total 400 Balance 20 - Medications Medications: Current Medications Acetaminophen (Tylenol 325mg Tab) 650 mg PO Q4H PRN PRN Reason: fever > 100.5 Last Admin: 03/21/17 17:51 Dose: 650 mg Amiodarone HCl (Cordarone) 200 mg PO QAM [facility] Last Admin: 03/21/17 10:03 Dose: 200 mg Atorvastatin Calcium (Lipitor) 20 mg PO DAILY [facility] Last Admin: 03/21/17 10:03 Dose: 20 mg Bacitracin (Bacitracin) 1 ea TOP DAILY [facility] Last Admin: 03/21/17 10:02 Dose: 1 ea Benzonatate (Tessalon Perles) 100 mg PO TID [facility] Last Admin: 03/21/17 17:14 Dose: 100 mg Carvedilol (Coreg) 3.125 mg PO DAILY [facility] Last Admin: 03/21/17 10:04 Dose: 3.125 mg Docusate Sodium (Colace) 100 mg PO BID [facility] Last Admin: 03/21/17 17:14 Dose: 100 mg Cefazolin Sodium (Ancef 1gm In Ns) 1 gm in 100 mls @ 100 mls/hr IVPB Q12 TAI PRN Reason: Protocol Last Admin: 03/21/17 22:50 Dose: 100 mls/hr Lisinopril (Zestril) 10 mg PO QAM [facility] Last Admin: 03/21/17 10:05 Dose: 10 mg Pantoprazole Sodium (Protonix Ec Tab) 40 mg PO QAM [facility] Last Admin: 03/21/17 10:02 Dose: 40 mg Polyethylene Glycol (Miralax) 17 gm PO DAILY [facility] Last Admin: 03/21/17 10:02 Dose: 17 gm Sitagliptin Phosphate (Januvia) 50 mg PO DAILY [facility] Last Admin: 03/21/17 10:03 Dose: 50 mg Tamsulosin HCl (Flomax) 0.4 mg PO DAILY [facility] Last Admin: 03/21/17 10:03 Dose: 0.4 mg - Labs Labs: 03/21/17 05:45 03/21/17 05:45 PT 12.0 Seconds (9.9-11.8) H 03/22/17 05:00 INR 1.11 (0.93-1.08) H 03/22/17 05:00 APTT 34.9 Seconds (23.7-30.8) H 03/22/17 05:00 - Constitutional Appears: No Acute Distress, Chronically Ill - Head Exam Head Exam: ATRAUMATIC, NORMAL INSPECTION, NORMOCEPHALIC - Eye Exam Eye Exam: EOMI, Normal appearance, PERRL. absent: Scleral icterus Pupil Exam: NORMAL ACCOMODATION - ENT Exam ENT Exam: Mucous Membranes Moist - Neck Exam Neck Exam: absent: Meningismus - Respiratory Exam Respiratory Exam: Decreased Breath Sounds (bibalsilar), Rales. absent: Rhonchi , Wheezes - Cardiovascular Exam Cardiovascular Exam: REGULAR RHYTHM, +S1, +S2 - GI/Abdominal Exam GI & Abdominal Exam: Distended, Soft. absent: Firm, Guarding, Rigid, Tenderness - Extremities Exam Extremities Exam: Normal Capillary Refill. absent: Calf Tenderness, Pedal Edema Additional comments: neprostomy bag and CBI, urine clear - Neurological Exam Neurological Exam: Alert, Awake, Oriented x3 - Psychiatric Exam Psychiatric exam: Normal Affect, Normal Mood - Skin Skin Exam: Dry, Warm Assessment and Plan - Assessment and Plan (Free Text) Plan: 86M, PMHx bladder cancer, locally advanced despite recuurent TURB, intravascular injection of chemotherapy, has slow progression of cancer, presented with hydronephrosis, recurrent hemautria, and a large bladder mass that he received palliative radiation in 07/2016. CT scan showed local tumor invading into prostate and surrounding tissue/colon. Pt has UTI with proteus. He also develped HCAP at this hospital stay. Pt had R neprhostomy tube placment , still with hematuria. Pt underwent cystocopy TUR bladder tumor (03/20/17). Hemautria on CBI, NS on gravity Flushed nephrostomy tube at least 2-3/d - usually nephrostomy tube stays for 2-3 months for therapeutic result. (Both IR and Urol) - possible clamped nephrostomy for u/o - re-assess if ureteral stent is needed - possible nephrostomy removal after stent placement Sepsis Prostatits L pyelonephritits Pyelonephrosis Possible colitis - CXR - RLL infiltrate - proteus on nephrostomy tube - Cefazolin 7-14d Hx bladder ca with new Left hydronephrosis and 7 mm ureteral calculus - flomax - percutanoues nephrostomy tube and ureteral stent (03/17) - cystoscopy and tumor excision (03/20) - should help the hydronephrosis -Dr. Otoole has met with family and pt, who wants only supportive care. No further plan for chemo or immunotherapy Anemia, Severe microcytic: GI blood loss vs hematuria vs CKD - Hb stable at 10 - s/p pRBC - on Venofar IV; feosol 325 daily - pending stool for occult blood Now constipated - resolved persistent diarrhea - resolved - stool culture (-) - Cdiff negative NIDDM - A1C 6.9 - Januvia renal dose @ 50mg/day MARCIA on CKD - baseline creatinine 2 - avoid nephrotoxins - Off Metformin - OK to con't Lisinopril per nephro - Resolving MARCIA Hx CAD s/p PCI s/p sudden cardiac arrest, several years ago - amiodarone, lipitor, coreg, lisiniprol CPOD Hx tobacco use Prophylaixs - protonix, SCD Discharge planning - TCU on - pt neice and pt not interested in TCU per primary team - pending disease case manager rn recs s/r/d/w Dr. Otoole
[2017-03-22 08:36] LABS: LYMPHOCYTE 5 % (22.0-35.0); MONOCYTE 2 % (1.0-6.0); NEUTROPHIL 93 % (50.0-70.0)
[2017-03-22 08:37] LABS: HYPOCHROMIA SLIGHT
[2017-03-22 08:38] LABS: LARGE PLATELETS PRESENT; OVALOCYTES SLIGHT
[2017-03-22] MEDS: ceFAZolin 1 gm in NS 1 GM/100 ML BAG IVPB SCH ×2 (10:11→21:22)
[2017-03-22] MEDS: POLYETHYLENE GLYCOL 3350 17 GM/Dose PACKET PO SCH (10:12)
[2017-03-22] MEDS: Bacitracin 500 Units/gm Oint Foilpak UD TOP SCH (10:13)
[2017-03-22] MEDS: Pantoprazole 40 mg EC Tab PO SCH (10:14)
[2017-03-22] MEDS: Potassium & Sodium Phosphate PO SCH (13:51)
--- NOTE | 2017-03-22 15:26 | PN ---
DATE: 03/10/2017 SUBJECTIVE: The patient is currently seen on 3R. He continues on continuous bladder irrigation. The urine was clear both in the left percutaneous nephrostomy bag and in the Tang bag. The patient is awaiting further evaluation by for discontinuation of CBI and perhaps clamping of the nephrostomy tube. He was noted to have a borderline low phosphorous level and a borderline low magnesium level today. MEDICATIONS: Medication reviewed. The patient is on Ancef, bacitracin, Colace, amiodarone, Coreg, Flomax, Januvia, Lipitor, MiraLax, Protonix, Tessalon Perles, p.r.n. Tylenol and lisinopril. OBJECTIVE: INTAKE/OUTPUT: Intake 780, output 975. VITAL SIGNS: Blood pressure 129/69, temperature 97.6, respiratory rate is 18 with a pulse of 61. HEENT: Normocephalic, atraumatic, conjunctivae are pale. Sclerae nonicteric. NECK: Supple. No neck vein distention. CHEST: Clear to auscultation and percussion. No rales, no rhonchi, or wheezing. CARDIOVASCULAR: Shows a normal S1 and S2. No murmurs, rubs or gallops. ABDOMEN: Soft. Bowel sounds normal. No rebound or guarding. No masses. BACK: Positive left percutaneous nephrostomy tube draining clear urine. GENITOURINARY: Tang catheter in place, draining clear urine. EXTREMITIES: No lower extremity cyanosis, clubbing or edema. LABORATORY DATA AND IMAGING: CBC: White blood cell count 10.9, hemoglobin 10.4 with a platelet count of 129,000. Chemistries today, sodium of 140, potassium 4.1, chloride 108 with a CO2 of 27. BUN is 38 with a creatinine of 2.0 at his baseline. Glucose is 268, calcium 7.5, albumin 2.1, phosphorous 2.4 with a magnesium level of 1.5. Microbiology followup, urine cultures are negative. Initially, urine culture was positive for proteus. ASSESSMENT: 1. Bladder cancer with hematuria with bilateral hydronephrosis with new-onset left-sided hydronephrosis and hydroureter, status post left percutaneous nephrostomy tube placement, status post cystoscopy with left ureteral stent placement. The patient is currently draining clear urine, both out of the bladder through the Tang and out of the kidney to the left percutaneous nephrostomy, awaiting followup by for perhaps clamping of the nephrostomy tube and discontinuation of the continuous bladder irrigation. 2. History of anemia secondary to genitourinary bleeding. Hemoglobin is stabilized. The patient is status post transfusions. Hemoglobin stable at 10.4. 3. Status post acute renal failure superimposed on chronic kidney stage IV. Baseline creatinine is in the low 2 range. Baseline BUN is in the low to mid 30 range. He is currently at baseline levels. 4. History of [id number] diabetes mellitus. Sugar control has been variable. 5. History of hypertension. Blood pressure control is acceptable. 6. Proteus urinary tract infection. The patient has completed a course of antibiotic therapy. 7. Mild hypophosphatemia and mild hypomagnesemia. These will be supplemented orally today. PLAN: 1. Continue to monitor accurate I's and O's. 2. to evaluate for discontinuation of continuous bladder irrigation. 3. to evaluate for perhaps clamping of the nephrostomy tube to allow for urine to flow through the Tang catheter from the bladder. 4. Discussed with staff on 3R in detail. Catracho Lee MD
[2017-03-22] MEDS: Magnesium Oxide 400 mg Tab UD PO SCH (18:01)
--- NOTE | 2017-03-23 03:42 | PN ---
DATE OF SERVICE: 03/22/2017 SUBJECTIVE: The patient is seen early this morning in room 367, bed 1. The patient is in no acute distress. He is doing well. No fevers or chills. No nausea, no vomiting. PHYSICAL EXAMINATION VITAL SIGNS: Temperature is 98, blood pressure is 129/60, and respiratory rate of 18. HEENT: Unremarkable. NECK: Supple. LUNGS: Decreased breath sounds. HEART: Normal S1 and S2. ABDOMEN: Soft and nontender. LABORATORY DATA: Reveals white count of 10,000, hemoglobin of 10, platelets 129. BUN of 28, creatinine of 2.0. There is Proteus mirabilis is noted in the body fluid culture. Review of orders revealed the patient to be on cefazolin. ASSESSMENT AND PLAN: This is an 86-year-old with sepsis, with prostatitis, left-sided pyelonephritis and pyelonephrosis, possible colitis, on cefazolin, with a left-sided nephrostomy tube placement, postprocedure day #5. The patient with proteus in the urine and body fluid. The patient with bladder cancer, diabetes, coronary artery disease with a history of percutaneous coronary intervention. Dr. Moran's note is reviewed. Dr. Jackson's note is also reviewed. Review of the microbiology reveals Proteus mirabilis in the urine from 03/11/2017, pansensitive, and the Proteus mirabilis from the 03/16/2017 specimen from the right kidney is also pansensitive proteus, may be able to switch to p.o. therapy to complete 14 days of therapy upon discharge. Today is day number 5 of 14 days, may be able to switch to p.o. for pansensitive proteus upon discharge. Remington Rodríguez MD
[2017-03-23 07:07] LABS: INR 1.14 (0.93-1.08); PARTIAL THROMBOPLASTIN TIME 34.8 Seconds (23.7-30.8); PROTHROMBIN TIME 12.3 Seconds (9.9-11.8)
[2017-03-23 07:23] LABS: ALB/GLOB RATIO 0.9 (1.1-1.8); ALBUMIN 2.2 g/dL (3.0-4.8); CALCIUM 7.5 mg/dL (8.4-10.5)
[2017-03-23 07:36] LABS: BASO # 0.04 K/mm3 (0.0-2.0); BASO % 0.4 % (0.0-3.0); EOS # 0.1 (0.0-0.7); EOS % 0.7 % (1.5-5.0); GRAN # 10.11 (1.4-6.5); GRAN % 90.8 % (50.0-68.0); HEMOGLOBIN 10.2 gm/dL (14.0-18.0); LYMPH # 0.5 (1.2-3.4); LYMPH % 4.1 % (22.0-35.0); MEAN CELL VOLUME 78.2 fL (80.0-105.0); MEAN CORPUSCULAR HEMOGLOBIN 23.9 pg (25.0-35.0); MEAN CORPUSCULAR HGB CONC 30.6 g/dl (31.0-37.0); MEAN PLATELET VOLUME 10.5 fl (7.0-11.0); MONO # 0.4 (0.1-0.6); PLATELET COUNT 146 10^3/uL (120.0-450.0); RBC 4.26 10^6/uL (3.5-6.1); RED CELL DISTRIBUTION WIDTH 24.1 % (11.5-14.5); WHITE BLOOD COUNT 11.1 10^3/ul (4.5-11.0)
--- NOTE | 2017-03-23 07:50 | CP.PCM.PN ---
Subjective - Date & Time of Evaluation Date of Evaluation: 03/23/17 Time of Evaluation: 07:49 - Subjective Subjective: PGY-[address] Otoole Pt tolerated PT. OFF CBI. urine pink. Plan to change ramos tomorrow. Objective - Vital Signs/Intake and Output Vital Signs (last 24 hours): Temp Pulse Resp BP Pulse Ox 97.9 F 64 20 124/70 95 03/22/17 16:00 03/22/17 16:00 03/22/17 16:00 03/22/17 16:00 03/22/17 16:00 Intake and Output: 03/23/17 03/23/17 06:59 18:59 Intake Total 780 Output Total 2945 Balance -2165 - Medications Medications: Current Medications Acetaminophen (Tylenol 325mg Tab) 650 mg PO Q4H PRN PRN Reason: fever > 100.5 Last Admin: 03/23/17 05:13 Dose: 650 mg Amiodarone HCl (Cordarone) 200 mg PO QAM [facility] Last Admin: 03/22/17 10:17 Dose: 200 mg Atorvastatin Calcium (Lipitor) 20 mg PO DAILY [facility] Last Admin: 03/22/17 10:14 Dose: 20 mg Bacitracin (Bacitracin) 1 ea TOP DAILY [facility] Last Admin: 03/22/17 10:13 Dose: 1 ea Benzonatate (Tessalon Perles) 100 mg PO TID [facility] Last Admin: 03/22/17 18:01 Dose: 100 mg Carvedilol (Coreg) 3.125 mg PO DAILY [facility] Last Admin: 03/22/17 10:17 Dose: 3.125 mg Docusate Sodium (Colace) 100 mg PO BID [facility] Last Admin: 03/22/17 18:00 Dose: 100 mg Cefazolin Sodium (Ancef 1gm In Ns) 1 gm in 100 mls @ 100 mls/hr IVPB Q12 [facility] PRN Reason: Protocol Last Admin: 03/22/17 21:22 Dose: 100 mls/hr Lisinopril (Zestril) 10 mg PO QAM [facility] Last Admin: 03/22/17 10:16 Dose: 10 mg Magnesium Oxide (Mag-Ox) 400 mg PO BID [facility] Last Admin: 03/22/17 18:01 Dose: 400 mg Pantoprazole Sodium (Protonix Ec Tab) 40 mg PO QAM [facility] Last Admin: 03/22/17 10:14 Dose: 40 mg Polyethylene Glycol (Miralax) 17 gm PO DAILY [facility] Last Admin: 03/22/17 10:12 Dose: 17 gm Potassium Phos/Sodium Phos (Neutra-Phos) 1 pkt PO DAILY [facility] Last Admin: 03/22/17 13:51 Dose: 1 pkt Sitagliptin Phosphate (Januvia) 50 mg PO DAILY [facility] Last Admin: 03/22/17 10:14 Dose: 50 mg Tamsulosin HCl (Flomax) 0.4 mg PO DAILY [facility] Last Admin: 03/22/17 10:14 Dose: 0.4 mg - Labs Labs: 03/23/17 05:45 03/23/17 06:30 PT 12.3 Seconds (9.9-11.8) H 03/23/17 06:30 INR 1.14 (0.93-1.08) H 03/23/17 06:30 APTT 34.8 Seconds (23.7-30.8) H 03/23/17 06:30 - Constitutional Appears: No Acute Distress, Chronically Ill - Head Exam Head Exam: NORMAL INSPECTION, NORMOCEPHALIC Additional comments: scar on scalp healing well - Eye Exam Eye Exam: EOMI, Normal appearance, PERRL. absent: Scleral icterus Pupil Exam: NORMAL ACCOMODATION - ENT Exam ENT Exam: Mucous Membranes Moist - Neck Exam Neck Exam: absent: Meningismus - Respiratory Exam Respiratory Exam: Decreased Breath Sounds, Clear to Ausculation Bilateral, NORMAL BREATHING PATTERN. absent: Rales, Rhonchi, Wheezes - Cardiovascular Exam Cardiovascular Exam: REGULAR RHYTHM, +S1, +S2 - GI/Abdominal Exam GI & Abdominal Exam: Distended, Soft. absent: Guarding, Rigid, Tenderness Additional comments: Nephrostomy tube intact. Urine light pink,. clear off cbi. yoli-red urine in ramos. no clot - Extremities Exam Extremities Exam: Normal Capillary Refill. absent: Calf Tenderness, Pedal Edema - Neurological Exam Neurological Exam: Alert, Awake, Oriented x3 - Psychiatric Exam Psychiatric exam: Normal Affect, Normal Mood - Skin Skin Exam: Dry, Warm Assessment and Plan - Assessment and Plan (Free Text) Plan: 86M, PMHx bladder cancer, locally advanced despite recuurent TURB, intravascular injection of chemotherapy, has slow progression of cancer, presented with hydronephrosis, recurrent hemautria, and a large bladder mass that he received palliative radiation in 07/2016. CT scan showed local tumor invading into prostate and surrounding tissue/colon. Pt has UTI with proteus. He also develped HCAP at this hospital stay. Pt had R neprhostomy tube placment , still with hematuria. Pt underwent cystocopy TUR bladder tumor (03/20/17). Hemautria on CBI, NS on gravity - improves but persist Flushed nephrostomy tube at least 2-3/d - H/H stable - usually nephrostomy tube stays for 2-3 months for therapeutic result. (Both IR and Urol) - possible clamped nephrostomy for u/o - re-assess if ureteral stent is needed - possible nephrostomy removal after stent placement - OFF cbi now - will change ramos tomorrow Sepsis Prostatits L pyelonephritits Pyelonephrosis Possible colitis - CXR - RLL infiltrate - proteus on nephrostomy tube - Cefazolin 7-14d (day 02/15) - will switch to PO Hx bladder ca with new Left hydronephrosis and 7 mm ureteral calculus - flomax - percutanoues nephrostomy tube and ureteral stent (03/17) - cystoscopy and tumor excision (03/20) - should help the hydronephrosis - Dr. Otoole has met with family and pt, who wants only supportive care. No further plan for chemo or immunotherapy Anemia, Severe microcytic: GI blood loss vs hematuria vs CKD - Hb stable at 10 - s/p pRBC - s/p Venofar IV & feosol 325 x 5 days - pending stool for occult blood Now constipated - resolved persistent diarrhea - resolved - stool culture (-) - Cdiff negative NIDDM - A1C 6.9 - Januvia renal dose @ 50mg/day MARCIA on CKD - baseline creatinine 2 - avoid nephrotoxins - Off Metformin - OK to con't Lisinopril per nephro - Resolving MARCIA Hx CAD s/p PCI s/p sudden cardiac arrest, several years ago - amiodarone, lipitor, coreg, lisiniprol CPOD Hx tobacco use Prophylaixs - protonix, SCD Discharge planning - Palliative consult and outpt f/u - Transfer to [facility] rehab Monday - Follow up with Dr. Otoole outpatient after discharge in 2-4 weeks - Follow up with Dr. Espinosa after discharge in 2-4 weeks - Follow up with Urologist after discharge in 2-4 weeks s/r/d/w Dr. Otoole
[2017-03-23] MEDS: ceFAZolin 1 gm in NS 1 GM/100 ML BAG IVPB SCH ×2 (09:49→21:26)
[2017-03-23] MEDS: Bacitracin 500 Units/gm Oint Foilpak UD TOP SCH (09:49)
[2017-03-23] MEDS: POLYETHYLENE GLYCOL 3350 17 GM/Dose PACKET PO SCH ×2 (09:50→10:09)
[2017-03-23] MEDS: Potassium & Sodium Phosphate PO SCH (09:50)
[2017-03-23] MEDS: Magnesium Oxide 400 mg Tab UD PO SCH ×2 (09:51→17:23)
[2017-03-23] MEDS: Pantoprazole 40 mg EC Tab PO SCH (09:51)
--- NOTE | 2017-03-23 19:33 | PN ---
DATE: 03/23/2017 SUBJECTIVE: The patient was seen lying in bed. He is awake and he is alert. He is comfortable. He denies any pain. PHYSICAL EXAMINATION GENERAL: Elderly male lying in bed. VITAL SIGNS: Blood pressure 121/73, heart rate 84, respiratory rate 18, temperature 98.1. HEENT: Normocephalic and atraumatic. NECK: Supple. No JVD. LUNGS: Bilateral equal air entry. . CARDIAC: S1 and S2, regular rate and rhythm. No murmur. No rub. ABDOMEN: Soft, nondistended, nontender. Bowel sounds present. EXTREMITIES: No lower extremity edema. INTAKE AND OUTPUT: 780/2945. LABORATORY DATA: WBC 11, hemoglobin 10, hematocrit 33, platelets 146. Sodium 138, potassium 4.0, chloride 107, CO2 of 25, BUN 31, creatinine of 1.8, glucose 232, A1c 7.5, AST 12, ALT 15, and albumin 2.2. Urine culture; no growth from 03/16/2017. MEDICATIONS: Ancef 1 g q.12, bacitracin, Colace, amiodarone, Coreg 3.125 b.i.d., Flomax, Januvia 50 mg daily, Lipitor, Mag-Ox, Miralax, potassium phosphate, Protonix, Tylenol, and lisinopril 10. ASSESSMENT AND PLAN: 1. Acute kidney injury, superimposed chronic renal disease stage IV resolved. 2. Obstructive uropathy. 3. Status post right percutaneous nephrostomy. 4. Status post cystoscopy and dissection of bladder tumor. 5. Coronary artery disease, cardiomyopathy. 6. Noninsulin-dependent diabetes mellitus. 7. Hypertension. PLAN: 1. Continue current management. 2. Urology followup. 3. Oncology followup. 4. Continue fingerstick monitoring. 5. Continue Januvia 50 mg daily. 6. Okay to continue Zestril. Iva Martins MD
--- NOTE | 2017-03-24 00:03 | PN ---
DATE: 03/23/2017 SUBJECTIVE: The patient seen early this morning in no acute distress, nontoxic. PHYSICAL EXAMINATION: VITAL SIGNS: Temperature is 98, blood pressure is 105/60, respiratory rate of 18 and heart rate of 52. HEENT: Unremarkable. NECK: Supple. LUNGS: Decreased breath sounds. HEART: Normal S1 and S2. ABDOMEN: Soft. LABORATORY DATA: Reveals a white count of 11,100, hemoglobin of 10 and platelets of 146. Chemistry reveals a BUN of 31 and creatinine of 1.8. Procalcitonin reveals 0.67. Urinalysis is noted. Urinalysis from 16/03/2017 is improved. Microbiology reveals proteus in the urine and proteus in the body fluid culture. ASSESSMENT AND PLAN: An 86-year-old male with sepsis and prostatitis, left-sided pyelonephritis, possible colitis, left-sided nephrostomy tube placement, post procedure day #6 and pansensitive proteus from the kidney and the urine, today is day #6 of 14 days, may switch to p.o. antibiotics when the patient is ready for discharge. Currently on Ancef, which is cefazolin. We will follow with you. Remington Rodríguez MD
[2017-03-24 06:29] LABS: HEMOGLOBIN 9.7 gm/dL (14.0-18.0); MEAN CELL VOLUME 77.3 fL (80.0-105.0); MEAN CORPUSCULAR HEMOGLOBIN 23.4 pg (25.0-35.0); MEAN CORPUSCULAR HGB CONC 30.3 g/dl (31.0-37.0); MEAN PLATELET VOLUME 9.3 fl (7.0-11.0); PLATELET COUNT 141 10^3/uL (120.0-450.0); RBC 4.14 10^6/uL (3.5-6.1); RED CELL DISTRIBUTION WIDTH 22.5 % (11.5-14.5); WHITE BLOOD COUNT 8.5 10^3/ul (4.5-11.0)
[2017-03-24 06:34] LABS: INR 1.11 (0.93-1.08); PARTIAL THROMBOPLASTIN TIME 35.4 Seconds (23.7-30.8)
[2017-03-24 07:06] LABS: ALB/GLOB RATIO 0.8 (1.1-1.8); CALCIUM 7.3 mg/dL (8.4-10.5); MAGNESIUM 1.5 mg/dL (1.7-2.2)
[2017-03-24 09:05] VITALS: BP 145/74; PULSE 58; TEMP 97.8; O2SAT 98
[2017-03-24 09:16] LABS: BAND 1 % (0-2); LYMPHOCYTE 4 % (22.0-35.0); MONOCYTE 1 % (1.0-6.0); NEUTROPHIL 94 % (50.0-70.0); PLATELET ESTIMATE NORMAL (NORMAL)
[2017-03-24] MEDS: Magnesium Oxide 400 mg Tab UD PO SCH ×2 (09:21→17:13)
[2017-03-24] MEDS: Potassium & Sodium Phosphate PO SCH (09:21)
[2017-03-24] MEDS: ceFAZolin 1 gm in NS 1 GM/100 ML BAG IVPB SCH (09:21)
[2017-03-24] MEDS: Bacitracin 500 Units/gm Oint Foilpak UD TOP SCH (09:21)
[2017-03-24] MEDS: Pantoprazole 40 mg EC Tab PO SCH (09:22)
[2017-03-24] MEDS: POLYETHYLENE GLYCOL 3350 17 GM/Dose PACKET PO SCH (09:22)
--- NOTE | 2017-03-24 10:39 | CP.PCM.CON ---
History of Present Illness - History of Present Illness History of Present Illness: Palliative consult requested by Dr Amalia Otoole Reason: Advance care planning 86 year old male who presented with weakness, diarrhea and decreased appetite for several days.He denied, fever, nausea, vomiting. Found to have leukocytosis, anemia Hgb 7.4, elevated creatinine 3.6,K 5.4. Admitted with usrosepsis, hematuria, renal insufficiency. PMHx: HTN, DM, hyperlipidemia, CAD, bladder cancer s/p radiation therapy, CKD, anemia. Social History: Former group home smoker, no alcohol or drug use. Family History: Non contributory Review of Systems: As per HPi, review of systems otherwise negative. Past Patient History - Infectious Disease Hx of Infectious Diseases: None - Tetanus Immunizations Tetanus Immunization: Unknown - Past Medical History & Family History Past Family History: Reviewed and not pertinent - Past Social History Smoking Status: Former Smoker - CARDIAC Hx Cardiac Disorders: Yes Hx Hypertension: Yes - PULMONARY Hx Respiratory Disorders: No - NEUROLOGICAL Hx Neurological Disorder: No - HEENT Hx HEENT Problems: No Hx Difficulty Chewing: Yes (poor dentition) - RENAL Hx Chronic Kidney Disease: Yes Other/Comment: hx bladder ca - ENDOCRINE/METABOLIC Hx Diabetes Mellitus Type 2: Yes - HEMATOLOGICAL/ONCOLOGICAL Hx Blood Transfusions: Yes (txfuse 5 u of PRBCs 06/19) Hx Blood Transfusion Reaction: Yes - INTEGUMENTARY Hx Dermatological Problems: No - MUSCULOSKELETAL/RHEUMATOLOGICAL Hx Degenerative Joint Disease: Yes Hx Falls: Yes - GASTROINTESTINAL Hx Gastrointestinal Disorders: No - GENITOURINARY/GYNECOLOGICAL Hx Genitourinary Disorders: Yes Hx Hematuria: Yes Hx Prostate Problems: Yes (enlarge prostate) - PSYCHIATRIC Hx Psychophysiologic Disorder: No Hx Substance Use: No - SURGICAL HISTORY Hx Surgeries: Yes - ANESTHESIA Hx Anesthesia Reactions: No Hx Malignant Hyperthermia: No Meds Allergies/Adverse Reactions: Allergies Allergy/AdvReac Type Severity Reaction Status Date / Time No Known Allergies Allergy Unverified 06/20/16 13:53 - Medications Medications: Current Medications Acetaminophen (Tylenol 325mg Tab) 650 mg PO Q4H PRN PRN Reason: fever > 100.5 Last Admin: 03/24/17 03:37 Dose: 650 mg Amiodarone HCl (Cordarone) 200 mg PO QAM [facility] Last Admin: 03/24/17 09:22 Dose: 200 mg Atorvastatin Calcium (Lipitor) 20 mg PO DAILY [facility] Last Admin: 03/24/17 09:22 Dose: 20 mg Bacitracin (Bacitracin) 1 ea TOP DAILY [facility] Last Admin: 03/24/17 09:21 Dose: 1 ea Benzonatate (Tessalon Perles) 100 mg PO TID [facility] Last Admin: 03/24/17 09:21 Dose: 100 mg Carvedilol (Coreg) 3.125 mg PO DAILY [facility] Last Admin: 03/24/17 09:22 Dose: 3.125 mg Docusate Sodium (Colace) 100 mg PO BID [facility] Last Admin: 03/24/17 09:21 Dose: 100 mg Cefazolin Sodium (Ancef 1gm In Ns) 1 gm in 100 mls @ 100 mls/hr IVPB Q12 [facility] PRN Reason: Protocol Last Admin: 03/24/17 09:21 Dose: 100 mls/hr Lisinopril (Zestril) 10 mg PO QAM [facility] Last Admin: 03/24/17 09:22 Dose: 10 mg Magnesium Oxide (Mag-Ox) 400 mg PO BID [facility] Last Admin: 03/24/17 09:21 Dose: 400 mg Pantoprazole Sodium (Protonix Ec Tab) 40 mg PO QAM [facility] Last Admin: 03/24/17 09:22 Dose: 40 mg Polyethylene Glycol (Miralax) 17 gm PO DAILY [facility] Last Admin: 03/24/17 09:22 Dose: Not Given Potassium Phos/Sodium Phos (Neutra-Phos) 1 pkt PO DAILY [facility] Last Admin: 03/24/17 09:21 Dose: 1 pkt Sitagliptin Phosphate (Januvia) 50 mg PO DAILY [facility] Last Admin: 03/24/17 09:22 Dose: 50 mg Tamsulosin HCl (Flomax) 0.4 mg PO DAILY [facility] Last Admin: 03/24/17 09:22 Dose: 0.4 mg Physical Exam - Constitutional Appears: No Acute Distress, Chronically Ill - Head Exam Head Exam: NORMAL INSPECTION - Eye Exam Eye Exam: Normal appearance, PERRL - ENT Exam ENT Exam: Mucous Membranes Moist, Normal Oropharynx - Neck Exam Neck exam: Positive for: Normal Inspection - Respiratory Exam Respiratory Exam: Decreased Breath Sounds, NORMAL BREATHING PATTERN - Cardiovascular Exam Cardiovascular Exam: REGULAR RHYTHM, +S1, +S2 - GI/Abdominal Exam GI & Abdominal Exam: Normal Bowel Sounds, Soft - Extremities Exam Extremities exam: Positive for: pedal pulses present - Back Exam Back exam: NORMAL INSPECTION - Skin Skin Exam: Dry, Pallor - Additional Findings Additional findings: Palliative performance scale rating 40 % Results - Vital Signs Recent Vital Signs: Last Vital Signs Temp 97.8 F 03/24/17 06:00 Pulse 58 L 03/24/17 06:00 Resp 20 03/24/17 06:00 BP 145/74 03/24/17 06:00 Pulse Ox 98 03/24/17 06:00 - Labs Result Diagrams: 03/24/17 06:00 03/24/17 06:00 Labs: Laboratory Results - last 24 hr 03/24/17 03/24/17 03/24/17 06:00 06:00 06:00 WBC 8.5 D RBC 4.14 Hgb 9.7 L Hct 32.0 L MCV 77.3 L MCH 23.4 L MCHC 30.3 L RDW 22.5 H Plt Count 141 MPV 9.3 Neutrophils % (Manual) 94 H Band Neutrophils % 1 Lymphocytes % (Manual) 4 L Monocytes % (Manual) 1 Platelet Evaluation Normal PT 12.0 H INR 1.11 H APTT 35.4 H Sodium 138 Potassium 4.0 Chloride 106 Carbon Dioxide 27 Anion Gap 9 L BUN 28 H Creatinine 1.6 H Est GFR ( Amer) 50 Est GFR (Non-Af Amer) 41 Random Glucose 223 H Calcium 7.3 L Phosphorus 2.7 Magnesium 1.5 L Total Bilirubin 0.3 AST 11 L ALT 16 Alkaline Phosphatase 119 Total Protein 4.5 L Albumin 2.0 L Globulin 2.4 Albumin/Globulin Ratio 0.8 L Assessment & Plan - Assessment and Plan (Free Text) Assessment: 86 year old male admitted with uropsepis, bilateral hydronephrosis L>R, s/p L percutaneous nephrostomy tube placement, hematuria s/p TURP. The patient is alert and oriented, although forgetful. He and I spoke about advance care planning The patient says he has a Living will and that his niece Jaelyn Najera has a copy. The patient affirms that he is DNR/DNI. I explained purpose of POLST, questions answered. The patient does not want to do POLST at this time. I also spoke with patient's niece Jaelyn via phone. The niece indicated that she has paperwork at home but needs to check it. Encouraged to imitate a Living Will or POLST if the patient does not have one. Time spent in discussion with patient and niece regarding advance care planning , 30 minutes Plan: Advance care planning
--- NOTE | 2017-03-24 12:59 | CP.PCM.PN ---
Subjective - Date & Time of Evaluation Date of Evaluation: 03/24/17 Time of Evaluation: 12:56 - Subjective Subjective: PGY-[address] Otoole + BM, soft yoli urine No acute event overnight tolerating physical therapy Objective - Vital Signs/Intake and Output Vital Signs (last 24 hours): Temp Pulse Resp BP Pulse Ox 97.8 F 58 L 20 145/74 98 03/24/17 06:00 03/24/17 06:00 03/24/17 06:00 03/24/17 06:00 03/24/17 06:00 Intake and Output: 03/24/17 03/24/17 06:59 18:59 Intake Total 0 Output Total 1325 Balance -1325 - Medications Medications: Current Medications Acetaminophen (Tylenol 325mg Tab) 650 mg PO Q4H PRN PRN Reason: fever > 100.5 Last Admin: 03/24/17 03:37 Dose: 650 mg Amiodarone HCl (Cordarone) 200 mg PO QAM [facility] Last Admin: 03/24/17 09:22 Dose: 200 mg Atorvastatin Calcium (Lipitor) 20 mg PO DAILY [facility] Last Admin: 03/24/17 09:22 Dose: 20 mg Bacitracin (Bacitracin) 1 ea TOP DAILY [facility] Last Admin: 03/24/17 09:21 Dose: 1 ea Benzonatate (Tessalon Perles) 100 mg PO TID [facility] Last Admin: 03/24/17 09:21 Dose: 100 mg Carvedilol (Coreg) 3.125 mg PO DAILY [facility] Last Admin: 03/24/17 09:22 Dose: 3.125 mg Docusate Sodium (Colace) 100 mg PO BID [facility] Last Admin: 03/24/17 09:21 Dose: 100 mg Cefazolin Sodium (Ancef 1gm In Ns) 1 gm in 100 mls @ 100 mls/hr IVPB Q12 [facility] PRN Reason: Protocol Last Admin: 03/24/17 09:21 Dose: 100 mls/hr Lisinopril (Zestril) 10 mg PO QAM [facility] Last Admin: 03/24/17 09:22 Dose: 10 mg Magnesium Oxide (Mag-Ox) 400 mg PO BID [facility] Last Admin: 03/24/17 09:21 Dose: 400 mg Pantoprazole Sodium (Protonix Ec Tab) 40 mg PO QAM [facility] Last Admin: 03/24/17 09:22 Dose: 40 mg Polyethylene Glycol (Miralax) 17 gm PO DAILY [facility] Last Admin: 03/24/17 09:22 Dose: Not Given Potassium Phos/Sodium Phos (Neutra-Phos) 1 pkt PO DAILY [facility] Last Admin: 03/24/17 09:21 Dose: 1 pkt Sitagliptin Phosphate (Januvia) 50 mg PO DAILY [facility] Last Admin: 03/24/17 09:22 Dose: 50 mg Tamsulosin HCl (Flomax) 0.4 mg PO DAILY [facility] Last Admin: 03/24/17 09:22 Dose: 0.4 mg - Labs Labs: 03/24/17 06:00 03/24/17 06:00 PT 12.0 Seconds (9.9-11.8) H 03/24/17 06:00 INR 1.11 (0.93-1.08) H 03/24/17 06:00 APTT 35.4 Seconds (23.7-30.8) H 03/24/17 06:00 - Constitutional Appears: No Acute Distress, Chronically Ill - Head Exam Head Exam: ATRAUMATIC, NORMAL INSPECTION, NORMOCEPHALIC - Eye Exam Eye Exam: EOMI, Normal appearance, PERRL. absent: Scleral icterus Pupil Exam: NORMAL ACCOMODATION - ENT Exam ENT Exam: Mucous Membranes Moist - Respiratory Exam Respiratory Exam: Clear to Ausculation Bilateral. absent: Rales, Rhonchi, Wheezes - Cardiovascular Exam Cardiovascular Exam: REGULAR RHYTHM, +S1, +S2 - GI/Abdominal Exam GI & Abdominal Exam: Soft, Normal Bowel Sounds. absent: Guarding, Rigid, Tenderness - Extremities Exam Extremities Exam: Normal Capillary Refill. absent: Calf Tenderness, Pedal Edema Additional comments: 3 way ramos intact - Neurological Exam Neurological Exam: Alert, Awake, Oriented x3 - Psychiatric Exam Psychiatric exam: Normal Affect, Normal Mood - Skin Skin Exam: Dry, Warm Assessment and Plan - Assessment and Plan (Free Text) Plan: 86M, PMHx bladder cancer, locally advanced despite recurent TURB, intravascular injection of chemotherapy, has slow progression of cancer, presented with hydronephrosis, recurrent hemautria, and a large bladder mass that he received palliative radiation in 07/2016. CT scan showed local tumor invading into prostate and surrounding tissue/colon. Pt has UTI with proteus. He also develped HCAP at this hospital stay. Pt had R neprhostomy tube placment, still with hematuria. Pt underwent cystocopy TUR bladder tumor (03/20/17). Hemautria on CBI, NS on gravity - improves but persist Flushed nephrostomy tube at least 2-3/d - H/H stable - usually nephrostomy tube stays for 2-3 months for therapeutic result. (Both IR and Urol) - Urology will re-assess if ureteral stent is needed with retrograde study - possible nephrostomy removal after stent placement - OFF cbi now - will change ramos before discharge Sepsis Prostatits L pyelonephritits Pyelonephrosis Possible colitis - CXR - RLL infiltrate - proteus on nephrostomy tube - Cefazolin 7-14d (day 03/17) - ID managing Hx bladder ca with new Left hydronephrosis and 7 mm ureteral calculus - flomax - percutanoues nephrostomy tube and ureteral stent (03/17) - cystoscopy and tumor excision (03/20) - should help the hydronephrosis - Dr. Otoole has met with family and pt, who wants only supportive care. No further plan for chemo or immunotherapy Anemia, Severe microcytic: GI blood loss vs hematuria vs CKD - Hb stable at 10 - s/p pRBC - s/p Venofar IV & feosol 325 x 5 days - pending stool for occult blood Now constipated - resolved persistent diarrhea - resolved - stool culture (-) - Cdiff negative NIDDM - A1C 6.9 - Januvia renal dose @ 50mg/day MARCIA on CKD - baseline creatinine 2 - avoid nephrotoxins - Off Metformin - OK to con't Lisinopril per nephro - Resolving MARCIA Hx CAD s/p PCI s/p sudden cardiac arrest, several years ago - amiodarone, lipitor, coreg, lisiniprol CPOD Hx tobacco use Prophylaixs - protonix, SCD Discharge planning - Palliative consult and outpt f/u - [facility] - Follow up with Dr. Otoole outpatient after discharge in 3 weeks - Follow up with Dr. Espinosa after discharge in 2-4 weeks - Follow up with Urologist after discharge in 2-4 weeks - Please re-consult onc service for new hydronephrosis, hematuria, or new urinary complaints given bladder ca history. thank you. s/r/d/w Dr. Otoole
--- NOTE | 2017-03-24 13:52 | PN ---
DATE: 03/24/2017 SUBJECTIVE: The patient is seen lying in bed. He is awake. He is alert. He is comfortable. PHYSICAL EXAMINATION: VITAL SIGNS: Blood pressure 145/74, heart rate 58, respiratory rate 18, and temperature 97.8. HEENT: Normocephalic, atraumatic. NECK: Supple. No JVD. LUNGS: Bilaterally equal air entry. CARDIAC: S1, S2. Regular rate and rhythm. No murmur. No rub. ABDOMEN: Soft, nondistended, nontender, bowel sounds are present. EXTREMITIES: No lower extremity edema. INTAKE AND OUTPUT: . LABORATORY DATA: WBC 8.5, hemoglobin 9.7, hematocrit 32, platelets 141. Sodium 138, potassium 4.0, chloride 106, CO2 27, BUN 28, creatinine 1.6, glucose 223, calcium 7.3, phosphorus 2.7, magnesium 1.6, AST 11, ALT 16, and albumin 2.0. CURRENT MEDICATIONS: Ancef, Bacitracin, Colace, Cordarone, Coreg, Flomax, Januvia, Lipitor, Mag-Ox, Miralax, Neutra-Phos, Protonix, Tylenol, and Zestril. ASSESSMENT AND PLAN: 1. Resolved acute kidney injury, underlying chronic kidney disease stage IV. 2. Bladder cancer. 3. Bilateral hydronephrosis, status post right percutaneous nephrostomy, left ureteral stent. 4. Severe anemia. 5. Hypomagnesemia. 6. Dementia. PLAN: 1. Stable from the renal standpoint at this time. 2. Continue magnesium supplementation. 3. Avoid nephrotoxins. 4. Discharge planning. Iva Martins MD
--- NOTE | 2017-03-24 17:27 | CP.PCM.PN ---
Subjective - Date & Time of Evaluation Date of Evaluation: 03/24/17 Time of Evaluation: 11:40 - Subjective Subjective: Comfortably resting in bed, no abdominal pain, no fevers overnight. Objective - Vital Signs/Intake and Output Vital Signs (last 24 hours): Temp Pulse Resp BP Pulse Ox 97.8 F 58 L 20 145/74 98 03/24/17 06:00 03/24/17 06:00 03/24/17 06:00 03/24/17 06:00 03/24/17 06:00 Intake and Output: 03/24/17 03/24/17 06:59 18:59 Intake Total 0 480 Output Total 1325 20 Balance -1325 460 - Medications Medications: Current Medications Acetaminophen (Tylenol 325mg Tab) 650 mg PO Q4H PRN PRN Reason: fever > 100.5 Last Admin: 03/24/17 03:37 Dose: 650 mg Amiodarone HCl (Cordarone) 200 mg PO QAM [facility] Last Admin: 03/24/17 09:22 Dose: 200 mg Atorvastatin Calcium (Lipitor) 20 mg PO DAILY [facility] Last Admin: 03/24/17 09:22 Dose: 20 mg Bacitracin (Bacitracin) 1 ea TOP DAILY [facility] Last Admin: 03/24/17 09:21 Dose: 1 ea Benzonatate (Tessalon Perles) 100 mg PO TID [facility] Last Admin: 03/24/17 17:13 Dose: 100 mg Carvedilol (Coreg) 3.125 mg PO DAILY [facility] Last Admin: 03/24/17 09:22 Dose: 3.125 mg Cephalexin Monohydrate (Keflex) 250 mg PO Q6 [facility] PRN Reason: Protocol Docusate Sodium (Colace) 100 mg PO BID [facility] Last Admin: 03/24/17 17:00 Dose: Not Given Lisinopril (Zestril) 10 mg PO QAM [facility] Last Admin: 03/24/17 09:22 Dose: 10 mg Magnesium Oxide (Mag-Ox) 400 mg PO BID [facility] Last Admin: 03/24/17 17:13 Dose: 400 mg Pantoprazole Sodium (Protonix Ec Tab) 40 mg PO QAM [facility] Last Admin: 03/24/17 09:22 Dose: 40 mg Polyethylene Glycol (Miralax) 17 gm PO DAILY [facility] Last Admin: 03/24/17 09:22 Dose: Not Given Potassium Phos/Sodium Phos (Neutra-Phos) 1 pkt PO DAILY [facility] Last Admin: 03/24/17 09:21 Dose: 1 pkt Sitagliptin Phosphate (Januvia) 50 mg PO DAILY [facility] Last Admin: 03/24/17 09:22 Dose: 50 mg Tamsulosin HCl (Flomax) 0.4 mg PO DAILY [facility] Last Admin: 03/24/17 09:22 Dose: 0.4 mg - Labs Labs: 03/24/17 06:00 03/24/17 06:00 PT 12.0 Seconds (9.9-11.8) H 03/24/17 06:00 INR 1.11 (0.93-1.08) H 03/24/17 06:00 APTT 35.4 Seconds (23.7-30.8) H 03/24/17 06:00 - Constitutional Appears: Non-toxic, No Acute Distress - Head Exam Head Exam: NORMAL INSPECTION - Neck Exam Neck Exam: absent: Meningismus - Respiratory Exam Respiratory Exam: Decreased Breath Sounds - Cardiovascular Exam Cardiovascular Exam: +S1, +S2 - GI/Abdominal Exam GI & Abdominal Exam: Soft. absent: Tenderness Assessment and Plan - Assessment and Plan (Free Text) Plan: Assessment consider sepsis from prostatitis and left sided pyelonephritis/pyonephrosis as well as possible colitis S/P left sided nephrostomy tube placement POD #7, growing Proteus bladder cancer DM CAD S/P PCI chronic anemia Plan continue Cefazolin and continue to monitor clinically; reviewed CT scan of the abdomen and pelvis; patient can be switched to PO antibiotics when ready for discharge
== END 2017-03-24 17:50 | disposition home health service (06) | DRG 668 ==
LOC: ED 20:38 → ERH 23:57 → 2RNO 03-11 02:18 → 3RNO 03-14 15:47
PROVIDERS: ADMIT Internal Medicine; ATTEND Internal Medicine
PROC: 30233N1 Transfusion of Nonautologous Red Blood Cells into Peripheral Vein, Percutaneous Approach (ICD-10-PCS; 2017-03-11)
PROC: 0T9030Z Drainage of Right Kidney with Drainage Device, Percutaneous Approach (ICD-10-PCS; 2017-03-16)
PROC: 0T5B8ZZ Destruction of Bladder, Via Natural or Artificial Opening Endoscopic (ICD-10-PCS; 2017-03-20)
PROC: 0TBB8ZZ Excision of Bladder, Via Natural or Artificial Opening Endoscopic (ICD-10-PCS; principal; 2017-03-20 10:00)
DX: N17.9 Acute kidney failure, unspecified (principal); A41.9 Sepsis, unspecified organism; J18.9 Pneumonia, unspecified organism; R64 Cachexia; I42.9 Cardiomyopathy, unspecified; E87.2 Acidosis; C67.9 Malignant neoplasm of bladder, unspecified; E11.22 Type 2 diabetes mellitus with diabetic chronic kidney disease; F03.90 Unspecified dementia, unspecified severity, without behavioral disturbance, psychotic disturbance, mood disturbance, and anxiety; E86.0 Dehydration; N18.4 Chronic kidney disease, stage 4 (severe); N13.2 Hydronephrosis with renal and ureteral calculous obstruction; N12 Tubulo-interstitial nephritis, not specified as acute or chronic; N13.6 Pyonephrosis; E11.649 Type 2 diabetes mellitus with hypoglycemia without coma; I12.9 Hypertensive chronic kidney disease with stage 1 through stage 4 chronic kidney disease, or unspecified chronic kidney disease; E83.42 Hypomagnesemia; K52.9 Noninfective gastroenteritis and colitis, unspecified; I25.10 Atherosclerotic heart disease of native coronary artery without angina pectoris; E78.5 Hyperlipidemia, unspecified; E87.5 Hyperkalemia; B96.4 Proteus (mirabilis) (morganii) as the cause of diseases classified elsewhere; D50.9 Iron deficiency anemia, unspecified; E88.09 Other disorders of plasma-protein metabolism, not elsewhere classified; N41.9 Inflammatory disease of prostate, unspecified; J44.9 Chronic obstructive pulmonary disease, unspecified; E83.39 Other disorders of phosphorus metabolism; Y95 Nosocomial condition; Z86.74 Personal history of sudden cardiac arrest; Z95.5 Presence of coronary angioplasty implant and graft; Z79.84 Long term (current) use of oral hypoglycemic drugs; Z86.010 Personal history of colon polyps; Z68.22 Body mass index [BMI] 22.0-22.9, adult; Z87.891 Personal history of nicotine dependence

== ENCOUNTER 2017-04-02 04:02 | Inpatient (IN) | payer MEDICARE, OTHER, BC ==
[2017-04-02 04:04] VITALS: BMI 28.2
--- NOTE | 2017-04-02 04:27 | ED PDOC ---
Arrival/HPI - General Time Seen by Provider: 04/02/17 04:04 Historian: Patient, EMS - History of Present Illness Narrative History of Present Illness (Text): 04/02/17 04:15 An 86 year old male patient whose past medical history includes, right nephrostomy tube, hypertension, hyperlipidemia, anemia, chronic kidney disease, and malignant bladder neoplasm, was brought in [facility] the emergency department [facility] a [facility]ged right nephrostomy tube. Patient denies fevers, chills, chest pain, abdominal pain, dizziness, headache, nausea, vomiting, diarrhea, or any other complaints. Time/Duration: Other (Today) Symptom Onset: Gradual Symptom Course: Unchanged Activities at Onset: Rest, Light Context: Other ([facility]) Past Medical History - Provider Review Nursing Documentation Reviewed: Yes - Infectious Disease Hx of Infectious Diseases: None - Tetanus Immunization Tetanus Immunization: Unknown - Reproductive Currently : No - Cardiac Hx Cardiac Disorders: Yes Hx Hypertension: Yes - Pulmonary Hx Respiratory Disorders: No - Neurological Hx Neurological Disorder: No - HEENT Hx HEENT Disorder: No Hx Difficulty Chewing: Yes (poor dentition) - Renal Hx Renal Disorder: Yes Other/Comment: hx bladder ca - Endocrine/Metabolic Hx Diabetes Mellitus Type 2: Yes - Hematological/Oncological Hx Blood Transfusions: Yes (txfuse 5 u of PRBCs 06/19) Hx Blood Transfusion Reaction: Yes - Integumentary Hx Dermatological Disorder: No - Musculoskeletal/Rheumatological Hx Degenerative Joint Disease: Yes Hx Falls: Yes - Gastrointestinal Hx Gastrointestinal Disorders: No - Genitourinary/Gynecological Hx Genitourinary Disorders: Yes Hx Hematuria: Yes Hx Prostate Problems: Yes (enlarge prostate) - Psychiatric Hx Psychophysiologic Disorder: No Hx Substance Use: No - Surgical History Hx Cardiac Catheterization: Yes Hx Coronary Stent: Yes - Anesthesia Hx Anesthesia Reactions: No Hx Malignant Hyperthermia: No - Suicidal Assessment Feels Threatened In Home Enviroment: No Family/Social History - Physician Review Nursing Documentation Reviewed: Yes Family/Social History: No Known Family HX Smoking Status: Former Smoker Hx Alcohol Use: No Hx Substance Use: No Hx Substance Use Treatment: No Allergies/Home Meds Allergies/Adverse Reactions: Allergies No Known Allergies Allergy (Unverified 06/20/16 13:53) Home Medications: Home Meds Medication Instructions Recorded Confirmed Amiodarone HCl 200 mg PO QAM 06/07/12 04/09/16 Enalapril Maleate 10 mg PO QAM 09/26/14 04/09/16 metFORMIN [glucOPHAGE] 500 mg PO BID 09/26/14 04/09/16 Tamsulosin [Flomax] 0.4 mg PO DAILY 03/16/15 04/09/16 Atorvastatin [Lipitor] 20 mg PO DAILY 03/29/16 04/09/16 Ferrous Sulfate [Feosol] 325 mg PO DAILY 03/29/16 04/09/16 SITagliptin [Januvia] 100 mg PO DAILY 03/29/16 04/09/16 GlipiZIDE [Glucotrol] 5 mg PO DAILY 03/30/16 04/09/16 Carvedilol [Coreg] 3.125 mg PO DAILY 04/09/16 04/09/16 Review of Systems - Physician Review All systems were reviewed & negative as marked: Yes - Review of Systems Constitutional: Normal. absent: Fevers, Night Sweats Respiratory: Normal. absent: SOB Cardiovascular: Normal. absent: Chest Pain Gastrointestinal: Normal. absent: Abdominal Pain, Diarrhea, Nausea Genitourinary Male: Other (+dislodged nephrostomy tube) Skin: Normal Neurological: Normal. absent: Headache, Dizziness Physical Exam Vital Signs Reviewed: Yes Vital Signs Temp Pulse Resp BP Pulse Ox 04/02/17 04:13 98.2 F 66 18 127/66 97 Temperature: Afebrile Blood Pressure: Normal Pulse: Regular Appearance: Positive for: Well-Appearing, Non-Toxic, Comfortable Pain Distress: None Mental Status: Positive for: Alert and Oriented X 3 - Systems Exam Head: Present: Atraumatic, Normocephalic Pupils: Present: PERRL Extroacular Muscles: Present: EOMI Conjunctiva: Present: Normal Mouth: Present: Moist Mucous Membranes Neck: Present: Normal Range of Motion Respiratory/Chest: Present: Clear to Auscultation, Good Air Exchange. No: Respiratory Distress, Accessory Muscle Use Cardiovascular: Present: Regular Rate and Rhythm, Normal S1, S2. No: Murmurs Abdomen: Present: Normal Bowel Sounds, Ostomy Tubes (right nephrostomy tube dislodged.). No: Tenderness, Distention, Peritoneal Signs Back: Present: Normal Inspection Lower Extremity: Present: Normal Inspection. No: Edema Neurological: Present: GCS=15, CN II-XII Intact, Speech Normal Skin: Present: Warm, Dry, Normal Color. No: Rashes Psychiatric: Present: Alert, Oriented x 3, Normal Insight, Normal Concentration Medical Decision Making ED Course and Treatment: 04/02/17 04:20 Impression: An 86 year old male patient with a dislodged right nephrostomy tube. Plan: -- Abdomen X-Ray -- Urinalysis -- Labs -- Reassess and disposition Prior Visits: Notes and results from previous visits were reviewed. Patient was last seen in the emergency department on 03/11/2017 for Colitis, Anemia, Acute on chronic renal failure, and near syncope. Progress Notes: 04/02/17 06:00 Reviewed radiology, XR Abdomen shows no acute processes. 04/02/17 06:[address] Andrews Li, who is aware and agrees with plan. Accepts pt in to his service. Pt will go to [facility] observation for dislodged nephrostomy tube. Request Dr. Espinosa and Dr. Hemphill on consult. - Lab Interpretations I have reviewed the lab results: Yes - RAD Interpretation Radiology Orders: 04/02/17 04:24 ABDOMEN (FLAT PLATE) 1VIEW [RAD] Stat Scout Sniper: ED Physician - Scribe Statement The provider has reviewed the documentation as recorded by the Scribe Carol Orozco, training under Marcella Lezama Disposition/Present on Arrival - Present on Arrival Any Indicators Present on Arrival: No History of DVT/PE: No History of Uncontrolled Diabetes: No Urinary Catheter: No History Surgical Site Infection Following: None - Disposition Have Diagnosis and Disposition been Completed?: Yes Diagnosis: Nephrostomy tube displaced Disposition: HOSPITALIZED Disposition Time: 06:19 Patient Plan: Observation Condition: STABLE
[2017-04-02 06:17] LABS: BILIRUBIN,TOTAL 0.5 mg/dL (0.2-1.3); CALCIUM 8.4 mg/dL (8.4-10.5); POTASSIUM 5.5 mmol/L (3.6-5.0); TOTAL PROTEIN 5.9 g/dL (5.8-8.3)
[2017-04-02 06:20] LABS: HEMATOCRIT 32.7 % (42.0-52.0); MEAN CELL VOLUME 80.7 fL (80.0-105.0); MEAN CORPUSCULAR HEMOGLOBIN 24.2 pg (25.0-35.0); MEAN PLATELET VOLUME 9.5 fl (7.0-11.0); RED CELL DISTRIBUTION WIDTH 22.8 % (11.5-14.5); WHITE BLOOD COUNT 9.6 10^3/ul (4.5-11.0)
[2017-04-02] MEDS ORDERED: RAMELTEON 8 MG PO PRN (09:27)
--- NOTE | 2017-04-02 14:06 | RAD ---
HISTORY: dislodged right nephrostomy tube COMPARISON: Abdomen pelvis CT 03/10/2017. FINDINGS: BOWEL: There is a nonspecific bowel gas pattern appreciate with gas seen distending numerous small-bowel loops and occasional large-bowel loops. No prominent free intraperitoneal gas. Wallstent is incidental identify the right common femoral region with facet calcifications about the pelvis bilaterally. Clinical correlation follow-up radiography or CT is advised. BONES: Diffuse osteopenia suggests osteoporosis. OTHER FINDINGS: None. IMPRESSION: Nonspecific bowel gas pattern. Follow-up radiography or CT advised. No gross free intraperitoneal gas identified.
[2017-04-02] MEDS ORDERED: Dextrose 50% SYRINGE Inj (50 ml) IVP ONE (16:32)
[2017-04-03 07:37] LABS: ADD MANUAL DIFF? NO
[2017-04-03 07:40] LABS: BASO # 0.02 K/mm3 (0.0-2.0); BASO % 0.3 % (0.0-3.0); EOS # 0.1 (0.0-0.7); EOS % 0.8 % (1.5-5.0); GRAN # 5.51 (1.4-6.5); GRAN % 86.5 % (50.0-68.0); HEMATOCRIT 35.2 % (42.0-52.0); LYMPH # 0.4 (1.2-3.4); LYMPH % 6.6 % (22.0-35.0); MEAN CELL VOLUME 80.4 fL (80.0-105.0); MEAN CORPUSCULAR HEMOGLOBIN 24.2 pg (25.0-35.0); MEAN CORPUSCULAR HGB CONC 30.1 g/dl (31.0-37.0); MEAN PLATELET VOLUME 9.6 fl (7.0-11.0); MONO # 0.4 (0.1-0.6); MONO % 5.8 % (1.0-6.0); PLATELET COUNT 178 10^3/uL (120.0-450.0); RED CELL DISTRIBUTION WIDTH 22.9 % (11.5-14.5); RETIC% 0.56 % (0.5-1.5); WHITE BLOOD COUNT 6.4 10^3/ul (4.5-11.0)
[2017-04-03 07:48] LABS: INR 1.11 (0.93-1.08)
[2017-04-03 07:52] LABS: CALCIUM 8.3 mg/dL (8.4-10.5)
[2017-04-03] MEDS ORDERED: Sod Polystyrene Sulf 15 gm/60 ml Oral Susp PO ONE (09:16)
[2017-04-03 09:36] LABS: POTASSIUM 5.8 mmol/L (3.6-5.0)
[2017-04-03 14:33] LABS: CALCIUM 8.5 mg/dL (8.4-10.5); POTASSIUM 5.5 mmol/L (3.6-5.0)
--- NOTE | 2017-04-03 20:38 | HP ---
CHIEF COMPLAINT: Dislodged nephrostomy tube. HISTORY OF PRESENT ILLNESS: This is an 86-year-old man with bladder CA, who had tumor resected by cystoscopy and is now diagnosed with the current tumor. He was recently hospitalized with hydronephrosis and right-sided nephrostomy tube that was placed. 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 PAST MEDICAL HISTORY: Significant for hypertension, diabetes, COPD, mitral valve prolapse, renal insufficiency. He was hospitalized in 1969 with pyelonephritis. He had cardiac arrest and coronary stenting in 2011. He had a stent placement in the right leg for peripheral vascular disease by Dr. Espinosa in 2014, the bladder CA diagnosed in 2016 when he presented with right kecia hematuria. ALLERGIES: HE HAS NO KNOWN ALLERGIES TO MEDICATIONS. SOCIAL HISTORY: He is life time smoker more than 50 pack year history. He quit smoking in past 5 years ago. He does not drink. Drinks 1 or 2 cups of coffee a day. He lives alone with a niece, Jaelyn, nearby and taking extraordinary good care of him. REVIEW OF SYSTEMS: Multiple points is otherwise unremarkable. PHYSICAL EXAMINATION: GENERAL: The patient was seen in room 360, bed 1 this Monday morning. He has a little bit of a peculiar somewhat jovial and more so than his usual self for awake, alert and appropriate in response. HEENT: Head and neck are unremarkable. Conjunctivae pink. Mucous membranes are moist. Laceration on top of the scalp is healing nicely . LUNGS: Good aeration right and left with prolonged respiratory phase and decreased breath sounds of COPD. HEART: Regular, not tachycardic. EXTREMITIES: Thin without edema. IMPRESSION: 1. Dislodged nephrostomy tube. 2. Bladder cancer. PLAN: Urology and interventional radiology consultation, question must be addressed as to reinsert the nephrostomy tube and/or continue down the ureter for the ureteral stent to alleviate the hydro seen few weeks ago. We will need to discuss with urology and IR. Inder Li MD [facility] # [id number] MTDD
[2017-04-04 06:59] LABS: ADD MANUAL DIFF? NO
[2017-04-04 07:12] LABS: BASO # 0.01 K/mm3 (0.0-2.0); BASO % 0.2 % (0.0-3.0); EOS % 0.7 % (1.5-5.0); GRAN # 4.66 (1.4-6.5); GRAN % 83.8 % (50.0-68.0); HEMATOCRIT 34.8 % (42.0-52.0); LYMPH # 0.5 (1.2-3.4); LYMPH % 9.7 % (22.0-35.0); MEAN CELL VOLUME 81.3 fL (80.0-105.0); MEAN CORPUSCULAR HEMOGLOBIN 24.8 pg (25.0-35.0); MEAN CORPUSCULAR HGB CONC 30.5 g/dl (31.0-37.0); MEAN PLATELET VOLUME 9.3 fl (7.0-11.0); MONO # 0.3 (0.1-0.6); MONO % 5.6 % (1.0-6.0); PLATELET COUNT 180 10^3/uL (120.0-450.0); RED CELL DISTRIBUTION WIDTH 23.2 % (11.5-14.5); WHITE BLOOD COUNT 5.6 10^3/ul (4.5-11.0)
[2017-04-04 08:00] LABS: CALCIUM 8.6 mg/dL (8.4-10.5)
[2017-04-04 08:05] LABS: POTASSIUM 5.8 mmol/L (3.6-5.0)
[2017-04-04] MEDS ORDERED: Sod Polystyrene Sulf 15 gm/60 ml Oral Susp PO ONE ×2 (08:22→12:00)
[2017-04-04] MEDS ORDERED: Lidocaine 2% Inj (20ml) ONE (16:03)
[2017-04-04] MEDS ORDERED: Midazolam 2 MG/2 ML VIAL ONE ×2 (17:08→17:44)
[2017-04-04] MEDS ORDERED: Iodixanol 320 MG/ML 100 ML BOTTLE IV ONE (17:26)
[2017-04-04] MEDS: Sodium Chloride 0.45% 1,000 ML IV SCH ×2 (18:10→19:30)
--- NOTE | 2017-04-04 18:49 | VASCULAR ---
PROCEDURE: 1. Replace right nephrostomy tube. HISTORY: Advanced bladder CA. Hydronephrosis with elevated BUN and creatinine. Inadvertently removed chronic right nephrostomy tube. PHYSICIAN(S): Anthony Espinosa MD. TECHNIQUE: The relative risks and indications of the procedure were explained to the patient and consent obtained. The patient was placed prone on the arteriogram table and the right sinus tract prepped and draped usual sterile fashion. A 5 Croatian dilator was placed in the sinus tract. Contrast was injected. This tract to the right renal pelvis. 0.035 glidewire was used to re-entered the right renal pelvis. A support wire was placed. A new 14 Croatian right nephrostomy tube was coiled in the right renal pelvis. The catheter was flushed and secured. The patient tolerated the procedure well. FINDINGS: There is severe right hydronephrosis. There is complete obstruction of the right ureter at the level of the sacrum. No contrast enters the bladder. IMPRESSION: 1.Severe right hydronephrosis. Complete obstruction to the right ureter at the level of sacrum. 2. Successful replacement of the patient's 14 Croatian right nephrostomy tube
--- NOTE | 2017-04-04 19:42 | CP.PCM.PN ---
Subjective - Date & Time of Evaluation Date of Evaluation: 04/04/17 Time of Evaluation: 19:43 - Subjective Subjective: Patient was seen at bedside at nurse's request because he is acting up ,trying to get out of bed. He is S/P nephrostomy tube replacement today. Nurse has gotten order for resperidol PO from PMD. Patient is not able to swallow at this time and an intravenous substitute is requested. Patient is confused.States that this year is 1920.Although he said that this is summer time and he is in the hospital room. Gives stray answers to any questions. Medical record was reviewed. This 86 year white male was admitted with dislodged nephrostomy tube. Has PMH of HTN,CAD, DM, COPD,HLD, hepatitis, anemia, MVP, renal insufficiency, pyelonephritis, coronary stenting, cardiac arrest, hematuria, bladder cancer, PVD, right leg stenting, ex smoker. Objective - Vital Signs/Intake and Output Vital Signs (last 24 hours): Temp Pulse Resp BP Pulse Ox 97.8 F 72 16 134/90 94 L 04/04/17 18:40 04/04/17 18:40 04/04/17 18:40 04/04/17 18:40 04/04/17 18:40 98.1*F,78/min,120/72, FSBS 232 mg % qat 4:30PM, pulse ox 99% on 2L/min by nasal canula. Intake and Output: 04/04/17 04/05/17 18:59 06:59 Intake Total 660 Balance 660 - Medications Medications: Current Medications Acetaminophen (Tylenol 325mg Tab) 650 mg PO Q4H PRN PRN Reason: fever > 100.5 Last Admin: 04/03/17 22:01 Dose: 650 mg Amiodarone HCl (Cordarone) [address] [facility] Last Admin: 04/04/17 09:09 Dose: 200 mg Atorvastatin Calcium (Lipitor) [address] [facility] Last Admin: 04/04/17 09:08 Dose: 20 mg Carvedilol (Coreg) 3.[address] [facility] Last Admin: 04/04/17 09:11 Dose: 3.125 mg Docusate Sodium (Colace) [address] [facility] Last Admin: 04/04/17 09:08 Dose: 100 mg Ferrous Sulfate (Feosol) [address] [facility] Last Admin: 04/04/17 09:09 Dose: 324 mg Sodium Chloride (Sodium Chloride 0.45%) 1,000 mls @ 80 mls/hr IV .[id number] [facility] Stop: 04/05/17 12:00 Metformin HCl (Glucophage) [address] [facility] Last Admin: 04/04/17 09:10 Dose: 500 mg Risperidone (Risperdal Tab) 0.25 mg PO STAT [facility] PRN Reason: Protocol Stop: 04/04/17 19:28 Tamsulosin HCl (Flomax) 0.[address] [facility] Last Admin: 04/04/17 09:09 Dose: 0.4 mg - Labs Labs: 04/04/17 06:40 04/04/17 06:40 PT 12.0 Seconds (9.9-11.8) H 04/03/17 07:00 INR 1.11 (0.93-1.08) H 04/03/17 07:00 - Constitutional Appears: Well, No Acute Distress, Agitated - Head Exam Head Exam: ATRAUMATIC, NORMAL INSPECTION, NORMOCEPHALIC - Eye Exam Eye Exam: Normal appearance - ENT Exam ENT Exam: Normal External Ear Exam - Neck Exam Neck Exam: Normal Inspection - Respiratory Exam Respiratory Exam: NORMAL BREATHING PATTERN - Cardiovascular Exam Cardiovascular Exam: absent: JVD - GI/Abdominal Exam GI & Abdominal Exam: absent: Distended - Rectal Exam Rectal Exam: Deferred - Exam Additional comments: Deferred. - Extremities Exam Extremities Exam: Normal Inspection - Back Exam Back Exam: NORMAL INSPECTION - Neurological Exam Neurological Exam: Alert, Awake - Psychiatric Exam Psychiatric exam: Agitated - Skin Skin Exam: Normal Color, Warm Assessment and Plan - Assessment and Plan (Free Text) Assessment: Agitation. S/P nephrostomoy tube replacement. Bladder cancer. Anemia. HTN. CAD. HLD. MVP. COPD. PVD. Plan: Ativan 0.5 mg IV stat. Observation. Give resperidol if and when he needs. Continue present management. ABG if agitation worsens to rule out hypercarbia.
--- NOTE | 2017-04-04 19:42 | PN ---
DATE: 04/04/2017 SUBJECTIVE: The patient is well known to me. He has locally advanced bladder cancer. The patient had a right nephrostomy tube placed due to a large pelvic mass, which is occluding the distal right ureter. The patient was at home with nursing facility and the tube apparently was dislodged. I spoke with nursing when the patient came in and had recommended a consultation with Dr. Anthony Espinosa to replace the tube. This has not yet been done. I spoke with Dr. Espinosa today and he is going to replace the nephrostomy tube. LABORATORY DATA: The patient has a creatinine of 2.9, this is somewhat elevated and rising. On prior study, she did have some left hydronephrosis as well. On recent cystoscopy, the large mass did appear to encroaching on the left side of the trigone. PLAN: I discussed the plan with Dr. Espinosa and we will replace the right nephrostomy tube at this time. If renal function does not traumatically improve, we will need to consider either an ultrasound or a CAT scan to assess the left kidney and can consider placement of a left nephrostomy tube as well if the hydronephrosis is increasing. Based on the cystoscopy results, I do not feel an internal stent will be helpful for him given likely high grade obstruction from advanced bladder cancer. We will reassess the patient after the nephrostomy tube is in place and draining and he will need serial lab work regarding his renal function. Recommend a nephrology consultation as well for his hyperkalemia. Ld Hemphill MD
[2017-04-05 00:17] LABS: POTASSIUM 4.5 mmol/L (3.6-5.0)
[2017-04-05 00:24] VITALS: RESP 20
[2017-04-05 09:32] VITALS: BP 108/61; PULSE 68
[2017-04-05 10:29] VITALS: TEMP 98.2; O2SAT 97
--- NOTE | 2017-04-05 13:21 | PN ---
DATE: 04/04/2017 SUBJECTIVE: The patient was seen this Monday in room 360, Bed 1. He is awake and alert. He is in his usual state and ready for a nephrotomy tube placement later today. I spoke with Dr. Anthony Espinosa about this. I spoke with the patient's nurse who discussed and case with urologist, basically this is an interventional radiology issue for a nephrostomy tube replacement. After getting through some telecommunication issues, I was able to speak with Dr. Espinosa. He has scheduled the procedure from later today and postoperatively patient developed some confusion requiring single dose of Risperdal for agitation after anesthesia. He slept after that and we will need to followed closely. He should be ready for discharge soon returning to the subacute rehab facility after nephrostomy tube is in place and functioning. Inder Li MD [facility]
--- NOTE | 2017-05-18 12:10 | DS ---
HISTORY OF PRESENT ILLNESS: This is an 86-year-old man with bladder cancer who had a tumor resected by cystoscopy in the past and is now diagnosed with recurrent tumor. He was recently hospitalized with hydronephrosis and right side nephrostomy tube was placed. He was at a subacute rehab facility when the tube became displaced and came to the emergency room at [facility] late Monday night or on Monday morning. His past medical history is significant for hypertension, diabetes, COPD, mitral valve prolapse and renal insufficiency. He was a lifetime smoker, quit in past 5 years after an episode of sudden cardiac and myocardial infarction. COURSE OF HOSPITAL STAY: The patient was seen in the emergency room and admitted on room 360, bed 1 with niece who help care for him. A urology and interventional radiology consultations were requested. The patient seen by Dr. Hemphill and by Dr. Anthony Espinosa. Nephrostomy tube was replaced by Dr. Espinosa and the patient will be able to return to the rehab facility. FINAL DISCHARGE DIAGNOSES: 1. Replace nephrostomy tube. 2. Bladder cancer. 3. Chronic obstructive pulmonary disease. 4. Hypertension. 5. Diabetes. 6. Coronary artery disease. 7. Status post cardiac arrest and sudden on 2011. 8. Renal insufficiency. 9. Peripheral vascular disease. Inder Li MD MTDD
== END 2017-04-05 16:35 | DRG 699 ==
LOC: ED 04:02 → ERH 06:19 → 3RNO 07:15 → OBSVTOIN 04-04 16:30
PROVIDERS: ADMIT Internal Medicine; ATTEND Internal Medicine
PROC: 0T25X0Z Change Drainage Device in Kidney, External Approach (ICD-10-PCS; principal; 2017-04-04)
DX: T83.022A Displacement of nephrostomy catheter, initial encounter (principal); N13.1 Hydronephrosis with ureteral stricture, not elsewhere classified; E11.22 Type 2 diabetes mellitus with diabetic chronic kidney disease; E11.51 Type 2 diabetes mellitus with diabetic peripheral angiopathy without gangrene; C67.9 Malignant neoplasm of bladder, unspecified; D64.9 Anemia, unspecified; I12.9 Hypertensive chronic kidney disease with stage 1 through stage 4 chronic kidney disease, or unspecified chronic kidney disease; N18.9 Chronic kidney disease, unspecified; J44.9 Chronic obstructive pulmonary disease, unspecified; I25.10 Atherosclerotic heart disease of native coronary artery without angina pectoris; E78.5 Hyperlipidemia, unspecified; R19.00 Intra-abdominal and pelvic swelling, mass and lump, unspecified site; I34.1 Nonrheumatic mitral (valve) prolapse; Y84.6 Urinary catheterization as the cause of abnormal reaction of the patient, or of later complication, without mention of misadventure at the time of the procedure; Y92.129 Unspecified place in nursing home as the place of occurrence of the external cause; Z95.5 Presence of coronary angioplasty implant and graft; Z86.74 Personal history of sudden cardiac arrest; Z87.891 Personal history of nicotine dependence

== ENCOUNTER 2017-05-02 12:18 | Emergency (ER) | payer MEDICARE ==
[2017-05-02 12:20] VITALS: BMI 21.1
[2017-05-02 12:47] VITALS: TEMP 97.9
--- NOTE | 2017-05-02 13:17 | ED PDOC ---
Arrival/HPI - General Chief Complaint: Trauma Time Seen by Provider: 05/02/17 12:21 - History of Present Illness Narrative History of Present Illness (Text): 05/02/17 12:58 86 M with a PMHx specifically pertinent for past falls, anemia, RF, and bladder cancer s/p nephrostomy tubes presents s/p a fall at his urologist's office. Patient states that he was in his wheelchair, which got caught on the carpet near the stairs at Dr. Marsh's office, and he fell out of the wheelchair down two steps. Per EMS, he was walking down the stairs when he tripped and fell down on his buttocks and went down 4 stairs. Patient denies any pain in his back, b/l UE and LE, denies hitting his head, denies any bleeding, and denies any loss of bowels (he has a nephrostomy tube). Patient does state that he is on an anticoagulant, but he does not recall which one and nothing was found in the chart. Patient states that the last time he fell he felt a spell of dizziness and lost his balance, and when he came to the ED he was found to be anemic. Patient denies any dizziness right now. Patient further denies f/ch/n/v/d/sob/cp/fatigue , as well as any loss of ROM in any of his extremities, his back, or his neck. Patient denies midline cervical tenderness. Patient has no further complaints. PMD: Dr. Inder Li on [address] in [place] PSHx: Nephrostomy tubes PMHx: Anemia, Colitis, Near syncope, Urothelial CA of the bladder, HTN All: NKDA SocHx: Smoked 40 years ago; denies etoh, illicits FamHx: HTN Medications: See 05/02/17 14:44 (Jose Seals) Past Medical History - Provider Review Nursing Documentation Reviewed: Yes - Travel History Have you recently traveled outside [place] w/in the past 3 mons?: No - Infectious Disease Hx of Infectious Diseases: None - Tetanus Immunization Tetanus Immunization: Unknown - Reproductive Currently : No - Cardiac Hx Cardiac Disorders: Yes Hx Hypertension: Yes - Pulmonary Hx Respiratory Disorders: No - Neurological Hx Neurological Disorder: No - HEENT Hx HEENT Disorder: No Hx Difficulty Chewing: Yes (poor dentition) - Renal Hx Renal Disorder: Yes Other/Comment: hx bladder ca - Endocrine/Metabolic Hx Diabetes Mellitus Type 2: Yes - Hematological/Oncological Hx Blood Transfusions: Yes (txfuse 5 u of PRBCs 06/19) Hx Blood Transfusion Reaction: Yes - Integumentary Hx Dermatological Disorder: No - Musculoskeletal/Rheumatological Hx Degenerative Joint Disease: Yes Hx Falls: Yes - Gastrointestinal Hx Gastrointestinal Disorders: No - Genitourinary/Gynecological Hx Genitourinary Disorders: Yes Hx Hematuria: Yes Hx Prostate Problems: Yes (enlarge prostate) - Psychiatric Hx Psychophysiologic Disorder: No Hx Substance Use: No - Surgical History Hx Cardiac Catheterization: Yes Hx Coronary Stent: Yes - Anesthesia Hx Anesthesia: Yes Hx Anesthesia Reactions: No Hx Malignant Hyperthermia: No - Suicidal Assessment Feels Threatened In Home Enviroment: No Family/Social History - Physician Review Nursing Documentation Reviewed: Yes Family/Social History: Hypertension Smoking Status: Former Smoker Hx Alcohol Use: No Hx Substance Use: No Hx Substance Use Treatment: No Allergies/Home Meds Allergies/Adverse Reactions: Allergies No Known Allergies Allergy (Unverified 06/20/16 13:53) Home Medications: Home Meds Medication Instructions Recorded Confirmed Amiodarone HCl 200 mg PO QAM 06/07/12 05/02/17 metFORMIN [glucOPHAGE] 500 mg PO BID 09/26/14 05/02/17 Tamsulosin [Flomax] 0.4 mg PO DAILY 03/16/15 05/02/17 Atorvastatin [Lipitor] 20 mg PO DAILY 03/29/16 05/02/17 Ferrous Sulfate [Feosol] 325 mg PO DAILY 03/29/16 05/02/17 Carvedilol [Coreg] 3.125 mg PO DAILY 04/09/16 05/02/17 Review of Systems - Review of Systems Constitutional: Normal. absent: Fatigue, Weight Change, Fevers Eyes: Normal. absent: Vision Changes, Photophobia ENT: Normal. absent: Hearing Changes Respiratory: Normal. absent: SOB, Cough Cardiovascular: Normal. absent: Chest Pain, Palpitations, Edema, Calf Pain Gastrointestinal: Normal. absent: Abdominal Pain, Constipation, Diarrhea, Nausea, Vomiting Genitourinary Male: Other (Nephrostomy tube ) Musculoskeletal: Normal. absent: Arthralgias, Back Pain, Neck Pain Skin: Normal. absent: Rash, Pruritis, Skin Lesions Neurological: Normal. absent: Headache, Dizziness, Focal Weakness Endocrine: Normal. absent: Diaphoresis, Polyuria Hemo/Lymphatic: Easy Bleeding Psychiatric: Normal Physical Exam Temperature: Afebrile Blood Pressure: Normal Pulse: Bradycardic Respiratory Rate: Normal Appearance: Positive for: Well-Appearing, Non-Toxic, Comfortable Pain Distress: None Mental Status: Positive for: Alert and Oriented X 3 - Systems Exam Head: Present: Atraumatic, Other (Old healing laceration on frontal lobe) Pupils: Present: PERRL Extroacular Muscles: Present: EOMI Conjunctiva: Present: Normal. No: Icteric Ears: Present: Normal, NORMAL TM, Normal Canal. No: TM Bulging Mouth: Present: Moist Mucous Membranes. No: Drooling Pharnyx: Present: Normal. No: TONSILS ENLARGED, Peritonsilar Swelling Nose (External): Present: Atraumatic. No: Abrasion, Contusion, Laceration Nose (Internal): Present: Normal Inspection, No Active Bleeding. No: Moist, Engorged, Edematous, Boggy Neck: Present: Normal Range of Motion. No: MIDLINE TENDERNESS Respiratory/Chest: Present: Clear to Auscultation, Good Air Exchange. No: Respiratory Distress, Accessory Muscle Use, Wheezes, Rales, Rhonchi Cardiovascular: Present: Regular Rate and Rhythm, Normal S1, S2, Bradycardic. No: Murmurs Abdomen: Present: Normal Bowel Sounds. No: Tenderness, Distention, Peritoneal Signs Breast/Axillary: No: Erythema, Fluctuance, Masses, Tender to Palpation Genitourinary Male: Present: Other (Nephrostomy tube intact, patient producing urine. ) Back: Present: Normal Inspection. No: CVA Tenderness, Midline Tenderness, Paraspinal Tenderness Upper Extremity: Present: Normal Inspection, Normal ROM, NORMAL PULSES. No: Cyanosis, Edema Lower Extremity: Present: Normal Inspection, NORMAL PULSES. No: Edema, CALF TENDERNESS Neurological: Present: GCS=15, CN II-XII Intact, Speech Normal Skin: Present: Warm, Normal Color Psychiatric: Present: Alert, Oriented x 3, Normal Insight, Normal Concentration Medical Decision Making ED Course and Treatment: Assessed 05/02/17 12:21 Impression: 86 M with a PMHx specifically pertinent for past falls, anemia, RF, and bladder cancer s/p nephrostomy tubes presents s/p a fall at his urologist's office, with unclear history. Past falls have been due to anemia and dizziness. Patient has no TTP, full ROM in all four extremities, is able to walk and bear weight. Nephrostomy tube in place. Plan: - CBC, BMP, Coags - Mg - Reassess Reassessed: 05/02/17 13:30 - Mg decreased, K+ increased - EKG ordered - Gave one dose of kayexelate in the ED, and giving her one dose to go home on - Repleted magnesium with 400 mg PO Reassessed: 05/02/17 16:19 - EKG reviewed, no acute change from previous - PMD spoken with, patient is good with follow up - Pt deemed stable for discharge (Jose Seals) 05/02/17 14:20 Patient Seen With Resident: In agreement with resident note which contains more details about the patient. Patient was seen and evaluated with resident. Came up with plan and treatment together. 05/02/17 17:25 Patient was treated with Kayexlate and Magnesium. EKG reviewed and similiar to previous with no change. Patient is very comfortable and wants to go home. He has good follow up with Dr. Christianson who will make sure he gets a repeat potassium level after he gets discharged. (Wesley Barboza) - Lab Interpretations Lab Results: 05/02/17 12:45 05/02/17 12:45 Lab Results 05/02/17 12:45: Sodium 138, Potassium 5.6 H* D, Chloride 105, Carbon Dioxide 22 , Anion Gap 17, BUN 55 H, Creatinine 2.2 H, Est GFR ( Amer) 34, Est GFR ( Non-Af Amer) 28, Random Glucose 150 H, Calcium 8.8, Magnesium 1.5 L 05/02/17 12:45: PT 12.0 H, INR 1.11 H, APTT 33.8 H 05/02/17 12:45: WBC 9.6 D, RBC 4.32, Hgb 11.1 L, Hct 35.9 L, MCV 83.1, MCH 25.7 , MCHC 30.9 L, RDW 22.4 H, Plt Count 190, MPV 9.0, Gran % 92.8 H, Lymph % (Auto ) 4.4 L, [place] % (Auto) 2.5, Eos % (Auto) 0.2 L, Baso % (Auto) 0.1, Gran # 8.89 H , Lymph # 0.4 L, [place] # 0.2, Eos # 0.0, Baso # 0.01, Neutrophils % (Manual) 93 H , Lymphocytes % (Manual) 5 L, Monocytes % (Manual) 2, Platelet Evaluation Normal , Hypochromasia Slight, Anisocytosis (manual) 1+, Microcytosis (manual) 1+ - Medication Orders Current Medication Orders: Discontinued Medications Magnesium Oxide (Mag-Ox) 400 mg PO STAT STA Stop: 05/02/17 14:10 Last Admin: 05/02/17 15:29 Dose: 400 mg Sodium Polystyrene Sulfonate (Kayexalate Oral Susp) 30 gm PO STAT STA Stop: 05/02/17 14:10 Last Admin: 05/02/17 15:25 Dose: 30 gm Disposition/Present on Arrival - Present on Arrival Any Indicators Present on Arrival: No History of DVT/PE: No History of Uncontrolled Diabetes: No Urinary Catheter: Yes (nephrestomy R lower back) History of Decub. Ulcer: No History Surgical Site Infection Following: None - Disposition Have Diagnosis and Disposition been Completed?: Yes Disposition Time: 15:00 - Disposition Diagnosis: Fall, Hypomagnesemia, Hyperkalemia Disposition: HOME/ ROUTINE Patient Problems: Current Active Problems Problem Status Onset Fall Acute Hyperkalemia Acute Hypomagnesemia Acute Condition: GOOD Additional Instructions: Mr. Beal, thank you for letting us take care of you today. Your providers were Dr. Barboza and Dr. Seals. You were treated for a fall, increase in potassium, and decrease in magnesium. The emergency medical care you received today was directed at your acute symptoms. If you were prescribed any medication , please fill it and take as directed. It may take several days for your symptoms to resolve. Return to the Emergency Department if your symptoms worsen , do not improve, or if you have any other problems. Please contact your doctor or call one of the physicians/clinics you have been referred to that are listed on the Patient Visit Information form that is included in your discharge packet. Bring any paperwork you were given at discharge with you along with any medications you are taking to your follow up visit. Our treatment cannot replace ongoing medical care by a primary care provider (PCP) outside of the emergency department. Thank you for allowing the [facility] team to be part of your care today. If you had an X-Ray or CT scan: A Radiologist will review the ED reading if any change in treatment is needed we will contact you. If you had a blood, urine, or wound culture: It will take several days for the results, if any change in treatment is needed we will contact you. If you had an STI test: It will take 48 hours for the results. Please call after 1 week if you have not heard back. Prescriptions: Sodium Polystyrene Sulfonate [kayeXALATE Oral Susp] 15 gm PO DAILY #1 bottle Referrals: Inder Li MD [Primary Care Provider] - Follow up with primary Forms: [employer] (Kinyarwanda)
[2017-05-02 13:49] LABS: BASO # 0.01 K/mm3 (0.0-2.0); BASO % 0.1 % (0.0-3.0); EOS % 0.2 % (1.5-5.0); GRAN # 8.89 (1.4-6.5); GRAN % 92.8 % (50.0-68.0); HEMATOCRIT 35.9 % (42.0-52.0); LYMPH # 0.4 (1.2-3.4); LYMPH % 4.4 % (22.0-35.0); MEAN CELL VOLUME 83.1 fl (80.0-105.0); MEAN CORPUSCULAR HEMOGLOBIN 25.7 pg (25.0-35.0); MEAN CORPUSCULAR HGB CONC 30.9 g/dl (31.0-37.0); MONO # 0.2 (0.1-0.6); MONO % 2.5 % (1.0-6.0); PLATELET COUNT 190 10^3/uL (120.0-450.0); RED CELL DISTRIBUTION WIDTH 22.4 % (11.5-14.5); WHITE BLOOD COUNT 9.6 10^3/ul (4.5-11.0)
[2017-05-02 13:59] LABS: CALCIUM 8.8 mg/dL (8.4-10.5); INR 1.11 (0.93-1.08); MAGNESIUM 1.5 mg/dL (1.7-2.2); PARTIAL THROMBOPLASTIN TIME 33.8 Seconds (23.7-30.8)
[2017-05-02 14:01] LABS: POTASSIUM 5.6 mmol/L (3.6-5.0)
[2017-05-02] MEDS ORDERED: Sod Polystyrene Sulf 15 gm/60 ml Oral Susp PO STA (14:09)
[2017-05-02] MEDS ORDERED: Magnesium Oxide 400 mg Tab UD PO STA (14:09)
[2017-05-02 14:24] VITALS: RESP 18
[2017-05-02 14:41] LABS: NEUTROPHIL 93 % (50.0-70.0)
[2017-05-02 14:42] LABS: ANISOCYTOSIS 1+; HYPOCHROMIA SLIGHT; MICROCYTOSIS 1+; PLATELET ESTIMATE NORMAL (NORMAL)
[2017-05-02 15:10] VITALS: BP 134/69; PULSE 59; O2SAT 100
--- NOTE | 2017-05-02 18:52 | CARD ---
APPROVED REPORT EKG Measurement Heart [id number] ID [id number] <Conclusion> Sinus bradycardia with sinus arrhythmia Left axis deviation Prolonged QT Abnormal ECG
== END 2017-05-02 15:55 | disposition home or self-care (01) ==
LOC: ED 12:18
DX: Z04.3 Encounter for examination and observation following other accident (principal); W10.8XXA Fall (on) (from) other stairs and steps, initial encounter; Y93.89 Activity, other specified; Y92.531 Health care provider office as the place of occurrence of the external cause; E87.5 Hyperkalemia; E83.42 Hypomagnesemia; I10 Essential (primary) hypertension; Z79.01 Long term (current) use of anticoagulants; Z87.891 Personal history of nicotine dependence

== ENCOUNTER 2017-06-09 11:19 | Inpatient (IN) | payer MEDICARE, BC ==
--- NOTE | 2017-06-09 12:06 | ED PDOC ---
Arrival/HPI - General Historian: Patient - History of Present Illness Time/Duration: Prior to Arrival Symptom Onset: Sudden Activities at Onset: Rest Context: Home - General Chief Complaint: GI Problem Time Seen by Provider: 06/09/17 11:22 - History of Present Illness Narrative History of Present Illness (Text): 06/09/17 12:01 86yo M PMH recurrent falls, Bladder CA s/p resection and with R nephrostomy tube , CKD, anemia, cardiac arrest (2011), Hypertension, DM2, COPD who presents s/p fall earlier today. pt states that he fell off his chair, passed out for a minute and then got up and dialled 911 himself. denies head trauma, or any joint /back/neck pain or trouble ambulating. Pt states that he has been having diarrhea for a couple days after eating some roast. pt denies recent n/v, fevers , chest pain, shortness of breath, cough. pt uses walker at home, and lives with his niece. wears adult diapers at home. (Ronnie Amezcua) Past Medical History - Provider Review Nursing Documentation Reviewed: Yes - Infectious Disease Hx of Infectious Diseases: None - Tetanus Immunization Tetanus Immunization: Unknown - Reproductive Currently : No - Cardiac Hx Cardiac Disorders: Yes Hx Hypertension: Yes Other/Comment: cardiac arrest (2011) - Pulmonary Hx Respiratory Disorders: No - Neurological Hx Neurological Disorder: No - HEENT Hx HEENT Disorder: No Hx Difficulty Chewing: Yes (poor dentition) - Renal Hx Renal Disorder: Yes Hx Renal Failure: Yes Other/Comment: hx bladder ca - Endocrine/Metabolic Hx Diabetes Mellitus Type 2: Yes - Hematological/Oncological Hx Blood Transfusions: Yes Hx Blood Transfusion Reaction: Yes Hx Cancer: Yes (bladder) - Integumentary Hx Dermatological Disorder: No - Musculoskeletal/Rheumatological Hx Degenerative Joint Disease: Yes Hx Falls: Yes - Gastrointestinal Hx Gastrointestinal Disorders: No - Genitourinary/Gynecological Hx Genitourinary Disorders: Yes Hx Hematuria: Yes Hx Prostate Problems: Yes (enlarge prostate) - Psychiatric Hx Psychophysiologic Disorder: No Hx Substance Use: No - Surgical History Hx Cardiac Catheterization: Yes Hx Coronary Stent: Yes - Anesthesia Hx Anesthesia: Yes Hx Anesthesia Reactions: No Hx Malignant Hyperthermia: No - Suicidal Assessment Feels Threatened In Home Enviroment: No Family/Social History - Physician Review Nursing Documentation Reviewed: Yes Family/Social History: No Known Family HX Smoking Status: Former Smoker Hx Alcohol Use: No Hx Substance Use: No Hx Substance Use Treatment: No Allergies/Home Meds Allergies/Adverse Reactions: Allergies No Known Allergies Allergy (Unverified 06/09/17 11:29) Home Medications: Home Meds Medication Instructions Recorded Confirmed Amiodarone HCl 200 mg PO QAM 06/07/12 06/09/17 metFORMIN [glucOPHAGE] 500 mg PO TID 09/26/14 06/09/17 Tamsulosin [Flomax] 0.4 mg PO DAILY 03/16/15 06/09/17 Clopidogrel [Plavix] 75 mg PO DAILY 06/09/17 06/09/17 GlipiZIDE [Glucotrol] 5 mg PO DAILY 06/09/17 06/09/17 Review of Systems - Physician Review All systems were reviewed & negative as marked: Yes - Review of Systems Constitutional: absent: Fatigue, Fevers Respiratory: absent: SOB, Cough Cardiovascular: absent: Chest Pain, Palpitations Gastrointestinal: Diarrhea. absent: Abdominal Pain Genitourinary Male: absent: Dysuria Neurological: Other (passed out). absent: Dizziness, Speech Changes, Facial Droop Physical Exam Vital Signs Reviewed: Yes Appearance: Positive for: Comfortable Pain Distress: None Mental Status: Positive for: Alert and Oriented X 3 - Systems Exam Head: Present: Normocephalic, Abrasion (chronic, from old fall). No: Tenderness Pupils: Present: PERRL Extroacular Muscles: Present: EOMI Conjunctiva: Present: Normal Mouth: Present: Moist Mucous Membranes Neck: Present: Normal Range of Motion. No: Meningeal Signs, MIDLINE TENDERNESS Respiratory/Chest: Present: Clear to Auscultation, Good Air Exchange. No: Respiratory Distress, Accessory Muscle Use Cardiovascular: Present: Regular Rate and Rhythm, Normal S1, S2. No: Murmurs Abdomen: Present: Normal Bowel Sounds. No: Tenderness, Distention, Guarding Genitourinary Male: Present: Normal External Genitalia, Other (R nephrostomy tube in place) Back: No: Midline Tenderness, Paraspinal Tenderness, Pain with Leg Raise Upper Extremity: Present: Normal Inspection, Normal ROM, Neurovascularly Intact Lower Extremity: Present: Neurovascularly Intact, Other (b/l knee abrasions ). No: Edema, Deformity Neurological: Present: Speech Normal, Motor Func Grossly Intact, Normal Sensory Function Skin: Present: Warm, Dry Psychiatric: Present: Alert, Oriented x 3 Vital Signs Temp Pulse Resp BP Pulse Ox 06/09/17 16:45 98 F 74 18 106/68 96 06/09/17 14:32 69 18 102/60 100 06/09/17 12:00 75 18 102/60 97 06/09/17 11:20 98.1 F 80 18 117/60 100 Medical Decision Making Reassessment Condition: Re-examined, Improved - Lab Interpretations I have reviewed the lab results: Yes ED Course and Treatment: 06/09/17 12:12 Impression: 86yo M PMH recurrent falls presents s/p fall and syncope Plan: - Reassess and disposition - CT Head - CXR - Labs - EKG - Urinalysis Progress Notes: Report Date : 06/09/2017 12:40:38 Creator : Benny Ramos MD CXR FINDINGS: LUNGS: No active pulmonary disease. PLEURA: No significant pleural effusion identified, no pneumothorax apparent. CARDIOVASCULAR: Normal. OSSEOUS STRUCTURES: No significant abnormalities. VISUALIZED UPPER ABDOMEN: Normal. OTHER FINDINGS: None. IMPRESSION: No active disease. Rocephin given for elevated WBC and UA findings 06/09/17 15:06 EKG shows NSR @ 68 bpm. Left [place] Deviation. cannot r/o anterior infarct (age undetermined) 06/09/17 15:[address] Li who accepts patient onto his service for workup of syncope and UTI (Ronnie Amezcua) 06/09/17 15:54 Blayne Beal is an 86 year old male who presents to the emergency department for further evaluation after a fall due to syncope. The patient was seen and examined with resident. Came up with treatment and disposition plan with resident. (Doroteo Li) - Lab Interpretations Lab Results: 06/09/17 12:14 06/09/17 12:14 Lab Results 06/09/17 12:14: Sodium 136, Potassium 4.9, Chloride 107, Carbon Dioxide 19 L, Anion Gap 15, BUN 44 H, Creatinine 2.6 H, Est GFR ( Amer) 28, Est GFR ( Non-Af Amer) 23, Random Glucose 162 H, Calcium 8.1 L, Magnesium 1.4 L, Total Bilirubin 0.8, AST 13 L, ALT 25, Alkaline Phosphatase 93, Lactate Dehydrogenase 419, Total Creatine Kinase 42, Troponin I 0.03 D, Total Protein 5.3 L, Albumin 2.6 L, Globulin 2.7, Albumin/Globulin Ratio 1.0 L 06/09/17 12:14: Urine Color Light yellow, Urine Appearance Cloudy, Urine pH 6.0 , Ur Specific [place] 1.025, Urine Protein >=300 H, Urine Glucose (UA) Negative , Urine Ketones Negative, Urine Blood Large H, Urine Nitrate Positive H, Urine Bilirubin Negative, Urine Urobilinogen 1.0 H, Ur Leukocyte Esterase Large H, Urine RBC 1 - 3, Urine WBC Tntc, Urine Bacteria Many 06/09/17 12:14: PT 12.3 H, INR 1.14 H, APTT 35.7 H 06/09/17 12:14: WBC 15.4 H D, RBC 3.39 L, Hgb 9.4 L, Hct 29.1 L, MCV 85.8, MCH 27.7, MCHC 32.3, RDW 19.3 H, Plt Count 181, MPV 9.2, Gran % 93.0 H, Lymph % ( Auto) 2.3 L, [place] % (Auto) 4.7, Eos % (Auto) 0.0 L, Baso % (Auto) 0.0, Gran # 14.33 H, Lymph # 0.4 L, [place] # 0.7 H, Eos # 0.0, Baso # 0.00, Neutrophils % ( Manual) 94 H, Lymphocytes % (Manual) 4 L, Monocytes % (Manual) 2, Platelet Evaluation Normal, Hypochromasia 1+, Anisocytosis (manual) Slight - RAD Interpretation Radiology Orders: 06/09/17 11:56 CHEST PORTABLE [RAD] Stat 06/09/17 11:57 HEAD W/O CONTRAST [CT] Stat - Medication Orders Current Medication Orders: Amiodarone HCl (Cordarone) 200 mg PO DAILY [facility] Last Admin: 06/09/17 18:25 Dose: 200 mg MAR Pulse and Blood Pressure Document 06/09/17 18:25 KMS (Rec: 06/09/17 18:26 KMS [id number]) Pulse Pulse Rate (60-90) 78 Blood Pressure Blood Pressure (100/60-150/90) 123/69 Clopidogrel Bisulfate (Plavix) 75 mg PO DAILY [facility] Last Admin: 06/09/17 18:25 Dose: 75 mg Dextrose/Sodium Chloride (Dextrose 5%/0.45% Ns 1000 Ml) 1,000 mls @ 50 mls/hr IV .Q20H TAI Last Admin: 06/09/17 18:01 Dose: 50 mls/hr eMAR Start Stop Document 06/09/17 18:01 KMS (Rec: 06/09/17 18:01 KMS [id number]) Intravenous Solution Start Date 06/09/17 Start Time 18:01 End Date 06/09/17 Cefepime HCl (Maxipime 1gm) 1 gm in 100 mls @ 100 mls/hr IVPB Q12 TAI PRN Reason: Protocol Last Admin: 06/09/17 21:14 Dose: 100 mls/hr eMAR Start Stop Document 06/09/17 21:14 SSE (Rec: 06/09/17 21:14 SSE [id number]) Intravenous Solution Start Date 06/09/17 Start Time 21:14 Metformin HCl (Glucophage) 500 mg PO TID TAI Last Admin: 06/09/17 18:26 Dose: 500 mg Tamsulosin HCl (Flomax) 0.4 mg PO DAILY TAI Last Admin: 06/09/17 18:26 Dose: 0.4 mg Discontinued Medications Ceftriaxone Sodium (Rocephin 1 Gram Ivpb) 1 gm in 100 mls @ 200 mls/hr IVPB STAT STA PRN Reason: Protocol Stop: 06/09/17 13:10 Last Admin: 06/09/17 13:04 Dose: 200 mls/hr eMAR Start Stop Document 06/09/17 13:04 SRE (Rec: 06/09/17 13:14 SRE [id number]) Intravenous Solution Start Date 06/09/17 Start Time 13:14 End Date 06/09/17 End time 14:00 Total Infusion Time 46 Sodium Chloride (Sodium Chloride 0.9%) 1,000 mls @ 999 mls/hr IV .Q1H1M STA Stop: 06/09/17 16:34 Last Admin: 06/09/17 15:49 Dose: 999 mls/hr eMAR Start Stop Document 06/09/17 15:49 SRE (Rec: 06/09/17 15:57 SRE [id number]) Intravenous Solution Start Date 06/09/17 Start Time 15:45 End Date 06/09/17 End time 16:45 Total Infusion Time 60 Magnesium Sulfate 2 gm/ Sodium (Chloride) 104 mls @ 102 mls/hr IVPB ONCE ONE Stop: 06/09/17 18:30 Last Admin: 06/09/17 18:03 Dose: 102 mls/hr eMAR Start Stop Document 06/09/17 18:03 KMS (Rec: 06/09/17 18:03 KMS [id number]) Intravenous Solution Start Date 06/09/17 Start Time 18:03 End Date 06/09/17 End time 19:03 Total Infusion Time 60 Pneumococcal Polyvalent Vaccine (Pneumovax 23 Vaccine) 0.5 ml IM .ONCE ONE Stop: 06/09/17 17:31 Disposition/Present on Arrival - Present on Arrival Any Indicators Present on Arrival: No History of DVT/PE: No History of Uncontrolled Diabetes: No Urinary Catheter: Yes (nephrestomy R lower back) History of Decub. Ulcer: No History Surgical Site Infection Following: None - Disposition Have Diagnosis and Disposition been Completed?: Yes Disposition Time: 15:33 Patient Plan: Admission - Disposition Diagnosis: Syncope, Fall, Urinary tract infection, Leukocytosis Disposition: HOSPITALIZED Patient Problems: Current Active Problems Problem Status Onset Fall Acute Leukocytosis Acute Syncope Acute Urinary tract infection Acute Condition: FAIR
[2017-06-09 12:31] LABS: BILIRUBIN,TOTAL 0.8 mg/dL (0.2-1.3); CALCIUM 8.1 mg/dL (8.4-10.5); MAGNESIUM 1.4 mg/dL (1.7-2.2); POTASSIUM 4.9 mmol/L (3.6-5.0); TOTAL PROTEIN 5.3 g/dL (5.8-8.3)
[2017-06-09 12:32] LABS: GRAN # 14.33 (1.4-6.5); HEMATOCRIT 29.1 % (42.0-52.0); LYMPH # 0.4 (1.2-3.4); LYMPH % 2.3 % (22.0-35.0); MEAN CELL VOLUME 85.8 fl (80.0-105.0); MEAN CORPUSCULAR HEMOGLOBIN 27.7 pg (25.0-35.0); MEAN CORPUSCULAR HGB CONC 32.3 g/dl (31.0-37.0); MEAN PLATELET VOLUME 9.2 fl (7.0-11.0); MONO # 0.7 (0.1-0.6); MONO % 4.7 % (1.0-6.0); PLATELET COUNT 181 10^3/uL (120.0-450.0); RED CELL DISTRIBUTION WIDTH 19.3 % (11.5-14.5); WHITE BLOOD COUNT 15.4 10^3/ul (4.5-11.0)
[2017-06-09 12:34] LABS: URINE BILIRUBIN NEGATIVE (NEGATIVE); URINE BLOOD LARGE (NEGATIVE); URINE GLUCOSE (UA) NEGATIVE (NEGATIVE); URINE KETONE NEGATIVE (NEGATIVE); URINE LEUKOCYTE ESTERASE LARGE Leu/uL (NEGATIVE); URINE PROTEIN >=300 mg/dL (<30 mg/dL)
[2017-06-09 12:37] LABS: INR 1.14 (0.93-1.08); PARTIAL THROMBOPLASTIN TIME 35.7 Seconds (23.7-30.8)
[2017-06-09 12:40] LABS: URINE COLOR LIGHT YELLOW (YELLOW)
[2017-06-09 12:41] LABS: URINE APPEARANCE CLOUDY (CLEAR)
[2017-06-09] MEDS ORDERED: cefTRIAXone 1 gm 1 GM/100 ML BAG IVPB STA (12:41)
[2017-06-09 12:42] LABS: TROPONIN I 0.03 ng/mL
--- NOTE | 2017-06-09 12:42 | RAD ---
HISTORY: syncope COMPARISON: 03/14/2017 FINDINGS: LUNGS: No active pulmonary disease. PLEURA: No significant pleural effusion identified, no pneumothorax apparent. CARDIOVASCULAR: Normal. OSSEOUS STRUCTURES: No significant abnormalities. VISUALIZED UPPER ABDOMEN: Normal. OTHER FINDINGS: None. IMPRESSION: No active disease.
[2017-06-09 12:50] LABS: URINE BACTERIA MANY (NEG); URINE WBC TNTC /hpf (0-6)
[2017-06-09 14:36] LABS: ANISOCYTOSIS SLIGHT; HYPOCHROMIA 1+; NEUTROPHIL 94 % (50.0-70.0); PLATELET ESTIMATE NORMAL (NORMAL)
[2017-06-09] MEDS ORDERED: Sodium Chloride 0.9% 1,000 ML IV STA (15:34)
[2017-06-09 17:29] VITALS: BMI 24.5
[2017-06-09] MEDS ORDERED: Magnesium Sulfate 2 GM in Sodium Chloride 0.9% 100 ML IVPB ONE (17:29)
[2017-06-09] MEDS ORDERED: Pneumococcal 23-Valent Vaccine IM ONE (17:30)
[2017-06-09] MEDS: Dextrose 5%/0.45% NS 1,000 ML IV SCH (18:01)
--- NOTE | 2017-06-09 20:01 | CT ---
PROCEDURE: CT HEAD WITHOUT CONTRAST. HISTORY: syncope COMPARISON: 06/20/2016 TECHNIQUE: Axial computed tomography images were obtained through the head/brain without intravenous contrast. Radiation dose: Total exam DLP = 678 mGy-cm. This CT exam was performed using one or more of the following dose reduction techniques: Automated exposure control, adjustment of the mA and/or kV according to patient size, and/or use of iterative reconstruction technique. FINDINGS: HEMORRHAGE: No intracranial hemorrhage. BRAIN: No mass effect or edema. Chronic microvascular changes are seen in the periventricular white matter. Moderate atrophy VENTRICLES: Unremarkable. No hydrocephalus. CALVARIUM: Unremarkable. PARANASAL SINUSES: Unremarkable as visualized. No significant inflammatory changes. MASTOID AIR CELLS: Unremarkable as visualized. No inflammatory changes. OTHER FINDINGS: None. IMPRESSION: No acute intracranial findings
--- NOTE | 2017-06-09 20:28 | CON ---
DATE: 06/09/2017 CONSULT SERVICE: Cardiology. REASON FOR CONSULTATION: Syncope, status post fall. BRIEF CLINICAL HISTORY: This is an 86-year-old male with past medical history significant for right nephrostomy, CA bladder, status post resection, anemia, hypertension, came in says that he felt dizzy when stood up and fell down, so came to the emergency room. Denies any chest pain, denies any shortness of breath, denies any palpitation. He said that sometimes he gets chest pain, but takes Tylenol and gets better. PAST MEDICAL HISTORY: Significant for coronary artery disease status post PTCA of LAD, 06/04/2012, history of hematuria, history of bladder CA, history of resection. Last admission, the patient was admitted on 06/20/2016 with kecia hematuria requiring multiple blood transfusions. Previous cardiac workup as follows: The patient had a cardiac catheterization and PTCA, 06/04/2012. At that time, cardiac catheterization revealed left main free of any significant disease, bifurcating LAD and circumflex. It has 99% proximal stenosis, ulcerative plaque. Mid to distal LAD had some luminal irregularity but no flow obstructing stenosis noted. Circumflex, moderate caliber vessel essentially free of any significant disease. Right coronary artery is a dominant large caliber vessel, totally occluded proximally after giving RV branch. Collateral noted from anterior scene painter to post septal scene painter. LV-gram done, there is ejection 35%. At that point, PTCA of LAD was done with drug-eluting stent 06/04/2017. MUGA scan done that showed ejection fraction 39% dated 06/05/2012. A stress test followup 11/27/2013, ejection fraction 45%, suspicious ischemia but no followup later on. The patient admitted multiple times with severe anemia secondary to hematuria and colonic polyp, multiple packed RBC transfusion required. REVIEW OF SYSTEMS: As per HPI. CURRENT MEDICATIONS: The patient is taking metformin, Flomax, glipizide, clopidogrel, amiodarone. PHYSICAL EXAMINATION: VITAL SIGNS: Temperature afebrile, heart rate of 69, blood pressure 102/60. HEENT: PERRLA intact. NECK: Supple. No carotid bruit or thyromegaly. CHEST: Clear to auscultation. HEART: S1 and S2 regular. ABDOMEN: Soft. EXTREMITIES: Clubbing and cyanosis negative. LABORATORY DATA: Blood workup as follows; WBC 15.1, hemoglobin 9.4, hematocrit 29.1, platelet count 181. Chemistry shows sodium 130, potassium 4.9, chloride 107, carbon dioxide 19, anion gap was 44, BUN 15, creatinine 2.6. Total protein 5.3, albumin 2.7, albumin-globulin ratio 1. EKG shows normal sinus, left axis deviation. IMPRESSION: Status post fall, status post syncope, rule out syncope, rule out orthostatic hypotension, diabetes, hypertension, hyperlipidemia, chronic renal insufficiency, creatinine is around between 2 to 3 range. Since end of year 07/08/2016, the patient had creatinine 2.3. 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 RECOMMENDATIONS: Lipid profile, TSH, hemoglobin A1c, echo to assess left ventricular function, gentle hydration for the orthostatic hypotension. We will follow with you. Thank you for providing me the opportunity in taking care of the patient, Blayne Beal. Serena Monaco MD
[2017-06-09] MEDS: Cefepime 1gm in NS 100ml 1 GM/100 ML BAG IVPB SCH (21:14)
--- NOTE | 2017-06-09 21:53 | CARD ---
APPROVED REPORT EKG Measurement Heart [id number] <Conclusion> Normal sinus rhythm Left axis deviation Cannot rule out Anterior infarct, age undetermined Abnormal ECG
[2017-06-10 07:34] LABS: GRAN # 11.93 (1.4-6.5); GRAN % 94.3 % (50.0-68.0); HEMATOCRIT 25.9 % (42.0-52.0); LYMPH # 0.3 (1.2-3.4); LYMPH % 2.1 % (22.0-35.0); MEAN CELL VOLUME 85.5 fl (80.0-105.0); MEAN CORPUSCULAR HEMOGLOBIN 28.1 pg (25.0-35.0); MEAN CORPUSCULAR HGB CONC 32.8 g/dl (31.0-37.0); MEAN PLATELET VOLUME 9.2 fl (7.0-11.0); MONO # 0.5 (0.1-0.6); MONO % 3.6 % (1.0-6.0); WHITE BLOOD COUNT 12.6 10^3/ul (4.5-11.0)
[2017-06-10 07:52] LABS: CALCIUM 7.7 mg/dL (8.4-10.5); MAGNESIUM 1.7 mg/dL (1.7-2.2); PHOSPHOROUS 3.6 mg/dL (2.5-4.5); POTASSIUM 4.4 mmol/L (3.6-5.0)
[2017-06-10] MEDS: Cefepime 1gm in NS 100ml 1 GM/100 ML BAG IVPB SCH (09:48)
--- NOTE | 2017-06-10 14:31 | CP.PCM.CON ---
History of Present Illness - History of Present Illness History of Present Illness: 86 year old male with PMH of bladder cancer, DM, CAD S/P PCI, chronic anemia, history of sepsis from prostatitis and left sided pyelonephritis/pyonephrosis as well as possible colitis S/P left sided nephrostomy tube placement, HTN, COPD was brought in to [facility] because of a syncopal episode. He apparently was on his chair and then fell off of it and apparently passed out. He has also been complaining of watery diarrhea for the past 2-3 days. He denies dysuria currently, no fever or chills, no nausea or vomiting, no chest pain, no SOB, no headache or dizziness, no abdominal pain, no cough or colds. Infectious Diseases consult is requested to further evaluate and manage. Review of Systems - Review of Systems All systems: reviewed and no additional remarkable complaints except (as per HPI ) Past Patient History - Infectious Disease Hx of Infectious Diseases: None - Tetanus Immunizations Tetanus Immunization: Unknown - Past Social History Smoking Status: Former Smoker - CARDIAC Hx Cardiac Disorders: Yes (mi) Hx Hypercholesterolemia: Yes Hx Hypertension: Yes Hx Mitral Valve Prolapse: Yes Hx Peripheral Vascular Disease: Yes Other/Comment: cardiac arrest (2011) - PULMONARY Hx Chronic Obstructive Pulmonary Disease (COPD): Yes - NEUROLOGICAL Hx Dementia: Yes - HEENT Hx HEENT Problems: (chevak) Hx Difficulty Chewing: Yes (poor dentition, missing teeth) - RENAL Hx Chronic Kidney Disease: Yes Hx Renal Failure: Yes Other/Comment: hx bladder ca, r nephrostomy - ENDOCRINE/METABOLIC Hx Diabetes Mellitus Type 2: Yes - HEMATOLOGICAL/ONCOLOGICAL Hx Anemia: Yes (blood transfusion and reaction) Hx Cancer: Yes (bladder) Hx Chemotherapy: (pt uncertain) - INTEGUMENTARY Other/Comment: redness to sacrum no openings, multiple skin discolorations b/l arms, small cut left hand, b/l knee multiple abrasions bruises - MUSCULOSKELETAL/RHEUMATOLOGICAL Hx Degenerative Joint Disease: Yes Hx Falls: Yes (fell today) Hx Unsteady Gait: Yes (w/ch, walker) - GASTROINTESTINAL Hx Gastrointestinal Disorders: No - GENITOURINARY/GYNECOLOGICAL Hx Genitourinary Disorders: Yes Hx Hematuria: Yes Hx Incontinence: Yes Hx Prostate Problems: Yes (enlarged prostate) - PSYCHIATRIC Hx Psychophysiologic Disorder: No Hx Substance Use: No - SURGICAL HISTORY Hx Surgeries: Yes Hx Cardiac Catheterization: Yes Hx Coronary Stent: Yes - ANESTHESIA Hx Anesthesia: Yes Hx Anesthesia Reactions: No Hx Malignant Hyperthermia: No Meds Allergies/Adverse Reactions: Allergies Allergy/AdvReac Type Severity Reaction Status Date / Time No Known Allergies Allergy Unverified 06/09/17 11:29 - Medications Medications: Current Medications Amiodarone HCl (Cordarone) 200 mg PO DAILY [facility] Clopidogrel Bisulfate (Plavix) 75 mg PO DAILY [facility] Magnesium Sulfate 2 gm/ Sodium (Chloride) 104 mls @ 102 mls/hr IVPB ONCE ONE Stop: 06/09/17 18:30 Last Admin: 06/09/17 18:03 Dose: 102 mls/hr Dextrose/Sodium Chloride (Dextrose 5%/0.45% Ns 1000 Ml) 1,000 mls @ 50 mls/hr IV .Q20H [facility] Last Admin: 06/09/17 18:01 Dose: 50 mls/hr Cefepime HCl (Maxipime 1gm) 1 gm in 100 mls @ 100 mls/hr IVPB Q12 [facility] PRN Reason: Protocol Metformin HCl (Glucophage) 500 mg PO TID [facility] Tamsulosin HCl (Flomax) 0.4 mg PO DAILY [facility] Physical Exam - Constitutional Appears: Non-toxic, No Acute Distress - Head Exam Head Exam: NORMAL INSPECTION - ENT Exam ENT Exam: Mucous Membranes Moist - Neck Exam Neck exam: Negative for: Meningismus - Respiratory Exam Respiratory Exam: Decreased Breath Sounds - Cardiovascular Exam Cardiovascular Exam: +S1, +S2 - GI/Abdominal Exam GI & Abdominal Exam: Soft. absent: Tenderness Results - Vital Signs Recent Vital Signs: Last Vital Signs Temp 98.1 F 06/09/17 17:03 Pulse 69 06/09/17 17:03 Resp 18 06/09/17 17:03 BP 102/60 06/09/17 17:03 Pulse Ox 96 06/09/17 16:45 - Labs Result Diagrams: 06/10/17 07:28 06/10/17 07:28 Assessment & Plan - Assessment and Plan (Free Text) Plan: Assessment watery diarrhea, R/O C. diff. associated diarrhea syncopal episode, etiology to be determined history of sepsis from prostatitis and left sided pyelonephritis/pyonephrosis as well as possible colitis S/P left sided nephrostomy tube placement - grew Proteus bladder cancer DM CAD S/P PCI chronic anemia Plan started patient on PO Vancomycin pending stool for C. diff. will monitor clinically
[2017-06-10] MEDS: Vancomycin 25 MG/ML PO SCH ×2 (18:30→21:44)
[2017-06-10] MEDS: Dextrose 5%/0.45% NS 1,000 ML IV SCH (20:12)
[2017-06-11] MEDS: Vancomycin 25 MG/ML PO SCH ×4 (09:29→22:26)
[2017-06-11] MEDS: Dextrose 5%/0.45% NS 1,000 ML IV SCH (10:15)
[2017-06-11 12:26] LABS: EOS % 0.1 % (1.5-5.0); GRAN # 9.55 (1.4-6.5); GRAN % 94.3 % (50.0-68.0); HEMATOCRIT 26.6 % (42.0-52.0); LYMPH # 0.3 (1.2-3.4); LYMPH % 2.6 % (22.0-35.0); MEAN CELL VOLUME 85.5 fl (80.0-105.0); MEAN CORPUSCULAR HGB CONC 32.7 g/dl (31.0-37.0); MEAN PLATELET VOLUME 9.2 fl (7.0-11.0); MONO # 0.3 (0.1-0.6); RED CELL DISTRIBUTION WIDTH 18.8 % (11.5-14.5); WHITE BLOOD COUNT 10.1 10^3/ul (4.5-11.0)
[2017-06-11] MEDS: metroNIDAZOLE IV 500 mg/100 ml 500 MG/100 ML BAG IVPB SCH ×2 (13:50→22:26)
--- NOTE | 2017-06-11 16:47 | CP.PCM.PN ---
Subjective - Date & Time of Evaluation Date of Evaluation: 06/11/17 Time of Evaluation: 10:40 - Subjective Subjective: Still with diarrhea but a little less, no fevers. Objective - Vital Signs/Intake and Output Vital Signs (last 24 hours): Temp Pulse Resp BP Pulse Ox 98.6 F 87 20 120/65 98 06/11/17 06:00 06/11/17 06:00 06/11/17 06:00 06/11/17 06:00 06/11/17 06:00 Intake and Output: 06/11/17 06/11/17 06:59 18:59 Intake Total 1687 Output Total 3 Balance 1684 - Medications Medications: Current Medications Amiodarone HCl (Cordarone) 200 mg PO DAILY [facility] Last Admin: 06/10/17 09:48 Dose: 200 mg Clopidogrel Bisulfate (Plavix) 75 mg PO DAILY [facility] Last Admin: 06/10/17 09:48 Dose: 75 mg Dextrose/Sodium Chloride (Dextrose 5%/0.45% Ns 1000 Ml) 1,000 mls @ 50 mls/hr IV .Q20H [facility] Last Admin: 06/10/17 20:12 Dose: Not Given Cefepime HCl (Maxipime 1gm) 1 gm in 100 mls @ 100 mls/hr IVPB Q12 [facility] PRN Reason: Protocol Last Admin: 06/10/17 09:48 Dose: 100 mls/hr Metformin HCl (Glucophage) 500 mg PO TID [facility] Last Admin: 06/10/17 17:35 Dose: 500 mg Tamsulosin HCl (Flomax) 0.4 mg PO DAILY [facility] Last Admin: 06/10/17 09:48 Dose: 0.4 mg Vancomycin HCl (Vancocin 25 Mg/Ml (Oral Use)) 125 mg PO QID [facility] PRN Reason: Protocol Last Admin: 06/10/17 21:44 Dose: 125 mg - Labs Labs: 06/10/17 07:28 06/10/17 07:28 PT 12.3 Seconds (9.9-11.8) H 06/09/17 12:14 INR 1.14 (0.93-1.08) H 06/09/17 12:14 APTT 35.7 Seconds (23.7-30.8) H 06/09/17 12:14 - Constitutional Appears: Non-toxic, No Acute Distress - Head Exam Head Exam: NORMAL INSPECTION - Neck Exam Neck Exam: absent: Meningismus - Respiratory Exam Respiratory Exam: Decreased Breath Sounds - Cardiovascular Exam Cardiovascular Exam: +S1, +S2 - GI/Abdominal Exam GI & Abdominal Exam: Soft. absent: Tenderness Assessment and Plan - Assessment and Plan (Free Text) Plan: Assessment consider C. diff. associated diarrhea syncopal episode, etiology to be determined history of sepsis from prostatitis and left sided pyelonephritis/pyonephrosis as well as possible colitis S/P left sided nephrostomy tube placement - grew Proteus bladder cancer DM CAD S/P PCI chronic anemia Plan continue PO Vancomycin day 2 to complete 10-14 days of therapy will repeat urine cx since the first one showed probable contamination will continue to monitor clinically
--- NOTE | 2017-06-12 00:19 | CP.PCM.PN ---
Subjective - Date & Time of Evaluation Date of Evaluation: 06/12/17 Time of Evaluation: 00:19 - Subjective Subjective: Patient was seen at bedside for back pain. States that he has pain in the back above the nephrostomy tube area. Has no other complaints. Denies tingling, numbness, weakness in legs. Medical record was reviewed. This 86 year old white male was admitted after nephrostomy tube was dislodged. Has PMH of HTN, DM, MVR, COPD,renal insufficiency, coronary stent placement, bladder cancer, pyelonephriits, cardiac arrest. Objective - Vital Signs/Intake and Output Vital Signs (last 24 hours): Temp Pulse Resp BP Pulse Ox 98 F 76 20 104/43 L 99 06/11/17 16:50 06/11/17 22:00 06/11/17 16:50 06/11/17 16:50 06/11/17 16:50 Intake and Output: 06/11/17 06/12/17 18:59 06:59 Intake Total 840 Output Total 200 Balance 640 - Medications Medications: Current Medications Amiodarone HCl (Cordarone) 200 mg PO DAILY [facility] Last Admin: 06/11/17 09:29 Dose: 200 mg Clopidogrel Bisulfate (Plavix) 75 mg PO DAILY [facility] Last Admin: 06/11/17 09:29 Dose: 75 mg Dextrose/Sodium Chloride (Dextrose 5%/0.45% Ns 1000 Ml) 1,000 mls @ 50 mls/hr IV .Q20H [facility] Last Admin: 06/11/17 10:15 Dose: 50 mls/hr Cefepime HCl (Maxipime 1gm) 1 gm in 100 mls @ 100 mls/hr IVPB Q12 [facility] PRN Reason: Protocol Last Admin: 06/10/17 09:48 Dose: 100 mls/hr Metronidazole (Flagyl) 500 mg in 100 mls @ 100 mls/hr IVPB Q8 [facility] PRN Reason: Protocol Last Admin: 06/11/17 22:26 Dose: 100 mls/hr Metformin HCl (Glucophage) 500 mg PO TID [facility] Last Admin: 06/11/17 17:13 Dose: 500 mg Tamsulosin HCl (Flomax) 0.4 mg PO DAILY [facility] Last Admin: 06/11/17 09:29 Dose: 0.4 mg Vancomycin HCl (Vancocin 25 Mg/Ml (Oral Use)) 125 mg PO QID [facility] PRN Reason: Protocol Last Admin: 06/11/17 22:26 Dose: 125 mg - Labs Labs: 06/11/17 12:10 06/10/17 07:28 PT 12.3 Seconds (9.9-11.8) H 06/09/17 12:14 INR 1.14 (0.93-1.08) H 06/09/17 12:14 APTT 35.7 Seconds (23.7-30.8) H 06/09/17 12:14 - Constitutional Appears: Well, No Acute Distress - Head Exam Head Exam: ATRAUMATIC, NORMAL INSPECTION, NORMOCEPHALIC - Eye Exam Eye Exam: Normal appearance - ENT Exam ENT Exam: Normal External Ear Exam - Neck Exam Neck Exam: Normal Inspection - Respiratory Exam Respiratory Exam: NORMAL BREATHING PATTERN - Cardiovascular Exam Cardiovascular Exam: absent: JVD - GI/Abdominal Exam GI & Abdominal Exam: absent: Distended - Rectal Exam Rectal Exam: Deferred - Exam Additional comments: Deferred. - Extremities Exam Extremities Exam: Normal Inspection - Back Exam Back Exam: NORMAL INSPECTION - Neurological Exam Neurological Exam: Alert, Oriented x3 - Psychiatric Exam Psychiatric exam: Normal Affect, Normal Mood - Skin Skin Exam: Normal Color Assessment and Plan - Assessment and Plan (Free Text) Assessment: Back pain. Bladder cancer. S/P nephrostomy tube placement. COPD. DM. HTN. Renal insufficiency. Anemia. Plan: Tylenol 650 mg PO now. Continue present management.
--- NOTE | 2017-06-12 04:44 | HP ---
CHIEF COMPLAINT: Syncope. HISTORY OF PRESENT ILLNESS: This is an 86-year-old man I have known for many years with bladder CA, coronary artery disease, status post cardiac arrest, who presented to the acute care facility in [facility] Emergency Room after syncopal episode at home. The patient reported several bouts of diarrhea for the days preceding coming to the Emergency Room. He was feeling weak and dry and got up on the evening of admission and fell to the floor. There was report of the downtime of approximately 3 minutes. The patient states that he was in fact unresponsive and woke up on floor a few minutes later. PAST MEDICAL HISTORY: Significant for lifetime tobacco use, mildly advanced COPD, coronary artery disease, cardiac arrest and recently diagnosed bladder tumor for which he has a right-sided draining nephrostomy tube. He was seen by social work specialist last night, Monday night on admission, admitted to the floor. Urinalysis showed cloudy urine, but not certain as to whether this was voided sample from the bladder or from the nephrostomy tube. Antibiotics were given in the ER and Infectious Disease b2b sales consultant is called. REVIEW OF SYSTEMS: Otherwise unremarkable on multiple points, except for generalized weakness due to his overall deconditioning, age and bladder cancer. PHYSICAL EXAMINATION GENERAL: The patient is seen this Monday morning in the cardiology department as he just underwent an echocardiogram and now is ready to be transported back to his room. He is awake, alert, clear, and appropriate. Mental status is at baseline. HEENT: Head and neck were unremarkable except for some temporalis muscle wasting. Conjunctivae is pink. Mucous membranes are moist. NECK: Supple without masses. Thyroid is nonpalpable. LUNGS: Showed good aeration right and left. HEART: Regular and not tachycardic. ABDOMEN: Soft and nontender. EXTREMITIES: Show thin, frail with no edema. There is right-sided nephrostomy tube in place, draining clear yoli urine. IMPRESSION: 1. Syncope. 2. Urinary tract infection. 3. Leukocytosis. 4. Bladder cancer. 5. Right-sided nephrostomy. 6. Chronic obstructive pulmonary disease. 7. Status post cardiac arrest. PLAN: IV antibiotics, Infectious Disease b2b sales consultant. We will consider calling for Urology consultation when current issues are stabilized. Inder Li MD [facility] # [id number]
[2017-06-12] MEDS: metroNIDAZOLE IV 500 mg/100 ml 500 MG/100 ML BAG IVPB SCH ×3 (05:41→21:29)
[2017-06-12 06:50] LABS: EOS % 0.4 % (1.5-5.0); GRAN # 9.36 (1.4-6.5); HEMATOCRIT 26.6 % (42.0-52.0); LYMPH # 0.3 (1.2-3.4); LYMPH % 3.2 % (22.0-35.0); MEAN CELL VOLUME 86.9 fl (80.0-105.0); MEAN CORPUSCULAR HEMOGLOBIN 27.8 pg (25.0-35.0); MEAN PLATELET VOLUME 9.2 fl (7.0-11.0); MONO # 0.3 (0.1-0.6); MONO % 3.4 % (1.0-6.0); WHITE BLOOD COUNT 10.1 10^3/ul (4.5-11.0)
[2017-06-12 07:06] LABS: CALCIUM 7.6 mg/dL (8.4-10.5); POTASSIUM 4.9 mmol/L (3.6-5.0)
--- NOTE | 2017-06-12 09:03 | PN ---
DATE: 06/11/2017 SUBJECTIVE: The patient was seen this Monday morning in room 277, bed 1. He is awake, alert, clear and in good spirits. He reported an episode of diarrhea again today and is also complaining of some itchy eyes, requesting Natural Tears. PHYSICAL EXAMINATION GENERAL: The patient is awake and alert. Mental status is at baseline. HEENT: Conjunctiva are pink. There is no crusting or evidence of conjunctivitis. Mucous membranes are moist. LUNGS: Lungs are clear. EXTREMITIES: Show no edema. IMPRESSION: 1. Syncope. 2. Urinary tract infection. PLAN: Repeat urinalysis was sent and urine was very milky and cloudy. This was voided urine from the bladder. The urine from the nephrostomy tube looks clear and yoli. He continues on antibiotics with guidance of Infectious Disease consultants. I will add some Natural Tears. Get the patient up and out of bed. Add antidiarrheal if available p.r.n. and follow closely. Inder Li MD
[2017-06-12] MEDS: Vancomycin 25 MG/ML PO SCH ×4 (10:42→21:28)
[2017-06-12] MEDS: Dextrose 5%/0.45% NS 1,000 ML IV SCH (12:35)
--- NOTE | 2017-06-12 14:28 | PN ---
DATE: 06/12/2017 REASON FOR CONSULTATION: Followup cardiac evaluation, admitted with syncope. BRIEF CLINICAL HISTORY: This is an 86-year-old male with past medical history significant for blood cancer, history of right nephrostomy, admitted with syncope, found to be the UTI. Denies any chest pain, shortness of breath or any palpitation. The patient on admission orthostatically change found to be no significant orthostatic hypotension. PHYSICAL EXAMINATION: VITAL SIGNS: Temperature is afebrile, heart rate of 78, blood pressure of 119/68. HEENT: PERRLA. Extraocular muscles are intact. NECK: Supple. No carotid bruits. No thyromegaly. CHEST: Clear to auscultation. HEART: S1 and S2 regular. ABDOMEN: Soft. EXTREMITIES: Clubbing and cyanosis negative. LABORATORY DATA: Blood workup as follows; WBC of 9.9, hemoglobin of 8.5, hematocrit of 26.6, and platelet count of 125. Chemistry shows sodium of 134, potassium of 4.5, chloride of 109, carbon dioxide of 14, anion gap of 16, BUN of 34, and creatinine of 1.9. IMPRESSION: Status post syncope, urinary tract infection, chronic renal insufficiency, acute kidney injury improving, history of nephrostomy tube, history of percutaneous transluminal coronary angioplasty of left anterior descending with a drug-eluting stent on 06/04/2012. Diffuse left ventricular function. History of paroxysmal atrial fibrillation on Coumadin. RECOMMENDATIONS: We will follow . Continue broad spectrum antibiotic and we will follow the orthostatic hypotension, if negative we will discontinue telemetry. We will follow with you. So far, the urine culture shows probably as a contamination. We will follow with you. In the interim, we will discontinue telemetry. Thank you Dr. Espinosa for providing me the opportunity in taking care of the patient, Lian. We will put iron and multivitamins preparation for anemia and we will follow with you. We will do orthostatic hypotension. Serena Monaco MD
--- NOTE | 2017-06-12 15:44 | CARD ---
APPROVED REPORT EXAM: Two-dimensional and M-mode echocardiogram with Doppler and color Doppler. INDICATION Syncope LVFX 2D DIMENSIONS Left Atrium (2D)4.2 (1.6-4.0cm)IVSd1.3 (0.7-1.1cm) LVDd5.2 (3.9-5.9cm)PWd1.3 (0.7-1.1cm) LVDs4.4 (2.5-4.0cm)FS (%) 14.0 % LVEF (%)29.4 (>50%) M-Mode DIMENSIONS Aortic Root4.30 (2.2-3.7cm)Aortic Cusp Exc.1.30 (1.5-2.0cm) Aortic Valve AoV Peak Worxaaab876.0cm/sAoV VTI34.5cmAO Peak GR.11mmHg LVOT Peak Kwtglxyf39.7cm/sLVOT VTI19.00cmAO Mean GR.6mmHg Mitral Valve MV E Shwbbqbi73.5cm/sMV A Ucslopzg415.0cm/sE/A ratio0.6 TDI Lateral E' Peak V9.75cm/sMedial E' Peak V3.31cm/sE/Lateral E'6.4 E/Medial E'18.9 Pulmonary Valve PV Peak Mzkdltos895.0cm/sPV Peak Grad.4mmHg Tricuspid Valve TR Peak Epnfoivd365xt/sRAP [id number] Peak Gr.28mmHg [id number] LEFT VENTRICLE The Left Ventricle is borderline dilated. There is mild concentric left ventricular hypertrophy. The systolic function is mildly to moderately impaired.EF-35% There is mild to moderate hypokinesis in the apical anterior wall. Transmitral Doppler flow pattern is Grade III-reversible restrictive diastolic dysfunction. No left ventricle thrombus noted on this study. There is no ventricular septal defect visualized. There is no left ventricular aneurysm. There is no mass noted in the left ventricle. RIGHT VENTRICLE The right ventricle is normal size. There is normal right ventricular wall thickness. The right ventricular systolic function is normal. ATRIA The left atrium is mildly dilated. The right atrium size is normal. The interatrial septum is intact with no evidence for an atrial septal defect. AORTIC VALVE The aortic valve is thickened but opens well. There is trace to mild aortic regurgitation. There is no aortic valvular stenosis. There is no aortic valvular vegetation. MITRAL VALVE The mitral valve is thickened but opens well. Mitral regurgitation is mild. There is no mitral valve stenosis. There is no evidence of mitral valve prolapse. TRICUSPID VALVE The tricuspid valve leaflets are thickened , but open well. There is mild tricuspid regurgitation.RVSP-38 mmof hg. There is no tricuspid valve stenosis. There is no tricuspid valve prolapse or vegetation. PULMONIC VALVE The pulmonic valve is mildly thickened. There is trace to mild pulmonic valvular regurgitation. There is no pulmonic valvular stenosis. GREAT VESSELS The aortic root is normal in size. The ascending aorta is normal in size. The pulmonary artery is normal. The IVC is normal in size and collapses >50% with inspiration. PERICARDIAL EFFUSION There is no pleural effusion. There is no pericardial effusion. <Conclusion> The Left Ventricle is borderline dilated. There is mild concentric left ventricular hypertrophy. The systolic function is mildly to moderately impaired.EF-35% There is mild to moderate hypokinesis in the apical anterior wall. There is trace to mild aortic regurgitation. Mitral regurgitation is mild. There is mild tricuspid regurgitation.RVSP-38 mmof hg. The IVC is normal in size and collapses >50% with inspiration. There is no pericardial effusion.
--- NOTE | 2017-06-12 17:58 | CP.PCM.PN ---
Subjective - Date & Time of Evaluation Date of Evaluation: 06/12/17 Time of Evaluation: 10:05 - Subjective Subjective: Stools are starting to become more formed, no fevers overnight. Objective - Vital Signs/Intake and Output Vital Signs (last 24 hours): Temp Pulse Resp BP Pulse Ox 97.9 F 74 20 108/52 L 98 06/12/17 06:00 06/12/17 06:00 06/12/17 06:00 06/12/17 06:00 06/12/17 06:00 Intake and Output: 06/12/17 06/12/17 06:59 18:59 Intake Total 1234 Output Total 350 Balance 884 - Medications Medications: Current Medications Amiodarone HCl (Cordarone) 200 mg PO DAILY [facility] Last Admin: 06/11/17 09:29 Dose: 200 mg Clopidogrel Bisulfate (Plavix) 75 mg PO DAILY [facility] Last Admin: 06/11/17 09:29 Dose: 75 mg Dextrose/Sodium Chloride (Dextrose 5%/0.45% Ns 1000 Ml) 1,000 mls @ 50 mls/hr IV .Q20H [facility] Last Admin: 06/11/17 10:15 Dose: 50 mls/hr Cefepime HCl (Maxipime 1gm) 1 gm in 100 mls @ 100 mls/hr IVPB Q12 [facility] PRN Reason: Protocol Last Admin: 06/10/17 09:48 Dose: 100 mls/hr Metronidazole (Flagyl) 500 mg in 100 mls @ 100 mls/hr IVPB Q8 [facility] PRN Reason: Protocol Last Admin: 06/12/17 05:41 Dose: 100 mls/hr Metformin HCl (Glucophage) 500 mg PO TID [facility] Last Admin: 06/11/17 17:13 Dose: 500 mg Tamsulosin HCl (Flomax) 0.4 mg PO DAILY [facility] Last Admin: 06/11/17 09:29 Dose: 0.4 mg Vancomycin HCl (Vancocin 25 Mg/Ml (Oral Use)) 125 mg PO QID [facility] PRN Reason: Protocol Last Admin: 06/11/17 22:26 Dose: 125 mg - Labs Labs: 06/12/17 06:00 06/12/17 06:00 PT 12.3 Seconds (9.9-11.8) H 06/09/17 12:14 INR 1.14 (0.93-1.08) H 06/09/17 12:14 APTT 35.7 Seconds (23.7-30.8) H 06/09/17 12:14 - Constitutional Appears: Chronically Ill - Head Exam Head Exam: NORMAL INSPECTION - ENT Exam ENT Exam: Mucous Membranes Moist - Neck Exam Neck Exam: absent: Meningismus - Respiratory Exam Respiratory Exam: Decreased Breath Sounds - Cardiovascular Exam Cardiovascular Exam: +S1, +S2 - GI/Abdominal Exam GI & Abdominal Exam: Soft. absent: Tenderness Assessment and Plan - Assessment and Plan (Free Text) Plan: Assessment consider severe C. diff. colitis, slowly improving syncopal episode, etiology to be determined history of sepsis from prostatitis and left sided pyelonephritis/pyonephrosis as well as possible colitis S/P left sided nephrostomy tube placement - grew Proteus bladder cancer DM CAD S/P PCI chronic anemia Plan continue PO Vancomycin day 3 and IV Flagyl to complete 10-14 days of therapy will continue to monitor clinically
[2017-06-13] MEDS: metroNIDAZOLE IV 500 mg/100 ml 500 MG/100 ML BAG IVPB SCH ×3 (05:27→21:36)
[2017-06-13] MEDS: Dextrose 5%/0.45% NS 1,000 ML IV SCH (06:01)
[2017-06-13] MEDS: Multivitamin Therapeutic Tab PO SCH (07:43)
[2017-06-13 07:48] LABS: BASO # 0.01 K/mm3 (0.0-2.0); BASO % 0.1 % (0.0-3.0); EOS % 0.4 % (1.5-5.0); GRAN # 9.62 (1.4-6.5); GRAN % 92.5 % (50.0-68.0); HEMATOCRIT 29.4 % (42.0-52.0); LYMPH # 0.3 (1.2-3.4); LYMPH % 3.2 % (22.0-35.0); MEAN CELL VOLUME 85.2 fl (80.0-105.0); MEAN CORPUSCULAR HEMOGLOBIN 27.2 pg (25.0-35.0); MEAN PLATELET VOLUME 9.2 fl (7.0-11.0); MONO # 0.4 (0.1-0.6); MONO % 3.8 % (1.0-6.0); PLATELET COUNT 131 10^3/uL (120.0-450.0); RED CELL DISTRIBUTION WIDTH 18.6 % (11.5-14.5); WHITE BLOOD COUNT 10.4 10^3/ul (4.5-11.0)
[2017-06-13 08:01] LABS: CALCIUM 7.7 mg/dL (8.4-10.5); MAGNESIUM 1.4 mg/dL (1.7-2.2); PHOSPHOROUS 2.5 mg/dL (2.5-4.5)
[2017-06-13 09:23] LABS: NEUTROPHIL 95 % (50.0-70.0)
[2017-06-13 09:24] LABS: ANISOCYTOSIS 1+; HYPOCHROMIA 1+; OVALOCYTES SLIGHT; PLATELET ESTIMATE NORMAL (NORMAL); POIKILOCYTOSIS SLIGHT; TEAR DROP CELLS SLIGHT
[2017-06-13] MEDS ORDERED: Sodium Chloride 0.9% 1,000 ML IV SCH (10:00)
[2017-06-13] MEDS: Vancomycin 25 MG/ML PO SCH ×4 (11:17→21:36)
--- NOTE | 2017-06-13 12:55 | PN ---
DATE: 06/13/2017 REASON FOR CONSULTATION: Followup cardiac evaluation, admitted with a syncope. SUBJECTIVE: He denies any chest pain, shortness of breath, or any palpitation. Yesterday, orthostatic hypotension was checked, found to be significant orthostatic hypotension. Blood pressure dropped from 126 to 94, it was not done as per nurse, so difficult. OBJECTIVE/PHYSICAL EXAMINATION: GENERAL: Not in apparent distress. Lying flat in the bed. VITAL SIGNS: Temperature is afebrile, heart rate is 80, and blood pressure is 126/55. This morning orthostasis was done, blood pressure of 123/65, sitting 99/53; again repeat lying was 126/65; sitting 99/53; standing 94/66. Rest of the examination as follows. HEENT: PERRLA. Extraocular muscles are intact. NECK: Supple. No carotid bruit. No thyromegaly. CHEST: Clear to auscultation. HEART: S1 and S2 regular. ABDOMEN: Soft. EXTREMITIES: Clubbing and cyanosis negative. LABORATORY DATA: Blood workup as follows: WBC of 10.5, hemoglobin of 9.4, hematocrit of 29.4, and platelet count of 131. Chemistry shows sodium of 134, potassium of 5.1, chloride of 110, carbon dioxide 69, anion gap of 13, BUN of 33, and creatinine of 1.9. IMPRESSION: An 86-year-old male with past medical history significant for coronary artery disease, status post percutaneous transluminal coronary angioplasty with a drug-eluting stent on 06/04/2012, history of paroxysmal atrial fibrillation, at one point was on Coumadin, now on amiodarone. He is admitted with syncope, possibly secondary to orthostatic hypotension, also urinary tract infection, and acute kidney injury, which is improving slowly. Admitting creatinine was 2.6, now it is 2.2. The patient had a repeat echocardiography done on 06/10/2017, that showed ejection fraction of 35%, [id number] hypokinesia, apical anterior wall, [id number] mitral regurgitation, mild mitral regurgitation, mild tricuspid regurgitation, systolic pressure of 38. Urinary tract infection, urosepsis, nephrostomy tube, history of bladder cancer, acute kidney injury and chronic renal insufficiency. RECOMMENDATIONS: We will continue telemetry for 24 hours. Start IV fluid, change to normal saline. Continue iron and multivitamins preparation in addition to continuing amiodarone, as the patient is in sinus now. History of paroxysmal atrial fibrillation, as mentioned one point was on Coumadin. Repeat orthostatic tomorrow and we will start 75 mL an hour of normal saline with cautious hydration. In the interim, continue multivitamins and other supplementation for anemia, and continue broad spectrum antibiotic as per ID. We will repeat the blood workup in the morning. We will follow with you. Thank you Dr. Li for providing us opportunity in taking care of the patient, Blayne Beal. Serena Monaco MD
--- NOTE | 2017-06-13 15:00 | PN ---
DATE: 06/13/2017 SUBJECTIVE: The patient is in bed in no acute distress. PHYSICAL EXAMINATION VITAL SIGNS: Temperature is 98, blood pressure is 120/60, respiratory rate of 16. HEENT: Unremarkable. NECK: Supple. LUNGS: Decreased breath sounds. HEART: Normal S1, S2. ABDOMEN: Soft and nontender. LABORATORY EXAMINATION: Reveals a white count of 10, hemoglobin of 9, platelets of 131. Coagulation is noted. Chemistries reveals of BUN of 33, creatinine of 1.9. Urinalysis is noted. Microbiology reveals urine has multiple organisms and probable contamination and the blood cultures are no growth in 3 days and stool for C. diff antigen is positive, toxin is negative. Review of orders reveals the patient to be on IV Flagyl and p.o. vancomycin. ASSESSMENT/PLAN An 86-year-old male with pseudomembranous colitis and syncopal episode, history of sepsis, prostatitis, and left-sided pyelonephritis, colitis with diabetes, coronary artery disease status post percutaneous coronary intervention, and chronic anemia on day #4 of vancomycin and IV Flagyl. Once diarrhea is resolved completely, we will discontinue the IV Flagyl and complete with p.o. vancomycin of 14 days. Remington Rodríguez MD
[2017-06-13 16:56] LABS: URINE BILIRUBIN NEGATIVE (NEGATIVE); URINE BLOOD LARGE (NEGATIVE); URINE GLUCOSE (UA) NEGATIVE (NEGATIVE); URINE KETONE NEGATIVE (NEGATIVE); URINE LEUKOCYTE ESTERASE LARGE Leu/uL (NEGATIVE); URINE PROTEIN >=300 mg/dL (<30 mg/dL); URINE UROBILINOGEN 0.2 E.U./dL (<1 E.U./dL)
[2017-06-13 17:01] LABS: URINE APPEARANCE CLOUDY (CLEAR); URINE COLOR LIGHT YELLOW (YELLOW)
[2017-06-13 17:17] LABS: URINE BACTERIA LARGE (NEG); URINE WBC TNTC /hpf (0-6)
[2017-06-14] MEDS: metroNIDAZOLE IV 500 mg/100 ml 500 MG/100 ML BAG IVPB SCH ×3 (05:23→21:41)
[2017-06-14 07:16] LABS: EOS # 0.1 (0.0-0.7); EOS % 0.5 % (1.5-5.0); GRAN # 8.95 (1.4-6.5); GRAN % 91.9 % (50.0-68.0); HEMATOCRIT 27.2 % (42.0-52.0); LYMPH # 0.4 (1.2-3.4); LYMPH % 4.2 % (22.0-35.0); MEAN CELL VOLUME 85.5 fl (80.0-105.0); MEAN CORPUSCULAR HGB CONC 31.6 g/dl (31.0-37.0); MEAN PLATELET VOLUME 9.1 fl (7.0-11.0); MONO # 0.3 (0.1-0.6); MONO % 3.4 % (1.0-6.0); RED CELL DISTRIBUTION WIDTH 18.8 % (11.5-14.5); WHITE BLOOD COUNT 9.7 10^3/ul (4.5-11.0)
[2017-06-14 07:54] LABS: ALB/GLOB RATIO 0.8 (1.1-1.8); BILIRUBIN,TOTAL 0.3 mg/dL (0.2-1.3); CALCIUM 7.6 mg/dL (8.4-10.5); MAGNESIUM 1.4 mg/dL (1.7-2.2); PHOSPHOROUS 2.6 mg/dL (2.5-4.5); POTASSIUM 5.1 mmol/L (3.6-5.0); TOTAL PROTEIN 4.3 g/dL (5.8-8.3)
[2017-06-14] MEDS: Multivitamin Therapeutic Tab PO SCH (09:00)
[2017-06-14] MEDS ORDERED: Albumin Human 25% (12.5 gm/50 ml) IV ONE ×2 (10:00→14:00)
[2017-06-14] MEDS: Vancomycin 25 MG/ML PO SCH ×4 (10:40→21:43)
[2017-06-14] MEDS: Sodium Chloride 0.9% 1,000 ML IV SCH (10:46)
--- NOTE | 2017-06-14 10:55 | PN ---
DAILY PROGRESS NOTE DATE: 06/13/2017 SUBJECTIVE: He remains in room 277, bed 1. There was some questions asked if he is discharged to home today, but my area of concern is the dark, cloudy urine with multiple organisms on culture drawn from the bladder. Urine output from the nephrostomy drainage tube is good and clear. I spoke with the Infectious Disease is consultant who saw Blayne and cleared him from antibiotic for an urinary tract infection perspective, calling this an asymptomatic bacteriuria. We will continue Flagyl for C. diff, and work on discharge planning soon. Inder Li MD
--- NOTE | 2017-06-14 12:59 | PN ---
DATE: 06/14/2017 REASON FOR CONSULTATION AND FOLLOWUP: Cardiac evaluation, admitted with syncope, orthostatic hypotension, and UTI. SUBJECTIVE: Denies any chest pain, shortness of breath, but feels very weak. OBJECTIVE: GENERAL: Lying in the bed, not in apparent distress. VITAL SIGNS: As follows; temperature is afebrile, heart rate is 72, blood pressure 92/48, orthostatic was done, now is lying 105, sitting 94, and standing 95. HEENT: PERRLA intact. NECK: Supple. No carotid bruit or thyromegaly. CHEST: Clear to auscultation. HEART: S1 and S2 regular. ABDOMEN: Soft. EXTREMITIES: Clubbing and cyanosis negative. LABORATORY DATA: Blood workup as follows: WBC 9.7, hemoglobin 8.6, hematocrit 27.2, and platelet count . Chemistry shows sodium 135, potassium , chloride 111, carbon dioxide 18, anion gap of 11, BUN 33, and creatinine of 2. IMPRESSION: Urosepsis, severe protein-calorie malnutrition, and orthostatic hypotension. The patient came in with protein-calorie malnutrition with moderate, now severe. RECOMMENDATIONS: Continue IV fluids. Continue IV albumin 2 doses, increase blood oncotic pressure, history of coronary artery disease, history of PTCA, and history of paroxysmal atrial fibrillation. We will keep in telemetry next 24 hours until the patient's orthostasis has resolved. Monitor H and H, if it goes below, consider packed RBC transfusion. Currently, the patient is in normal sinus. We will follow with you. Continue broad-spectrum antibiotic for UTI, probably the syncope is preceded by both dehydration as well as urosepsis. We will resume for the next 24 hours. We will cut down to 50 mL an hour for the next 24 hours, now given 2 doses of IV albumin, to improve oncotic pressure because the patient's albumin is 1.5 and he has orthostatic hypotension. We will repeat the lab in the morning. Thank you Dr. Li for providing us the opportunity in taking care of the patient, Lian. Serena Monaco MD
--- NOTE | 2017-06-14 15:39 | PN ---
DATE: 06/14/2017 SUBJECTIVE: The patient seen earlier this morning in room 277, bed 1. The patient is weak. The patient was seen with no fever and no chills, uneventful night. PHYSICAL EXAMINATION: VITAL SIGNS: Temperature is 98, blood pressure is 114/60, respiratory rate of 18. HEENT: Unremarkable. LABORATORY DATA: White count is 9.7, hemoglobin of 8, platelets of 138. Chemistry reveals a BUN of 33, creatinine of 2. Urinalysis is noted. Microbiology reveals the blood cultures have no growth. ASSESSMENT AND PLAN: This is an 86-year-old male with pseudomembranous colitis and syncopal episode, history of sepsis, prostatitis, left-sided pyelonephritis, colitis, diabetes, coronary artery disease, percutaneous coronary intervention, and chronic anemia on day #5 of p.o. vancomycin and the patient also on IV Flagyl. The patient's diarrhea has resolved with consider discontinuity IV Flagyl and complete with 14 days of p.o. vancomycin. Remington Rodríguez MD
[2017-06-15] MEDS: metroNIDAZOLE IV 500 mg/100 ml 500 MG/100 ML BAG IVPB SCH ×2 (05:30→18:18)
[2017-06-15 06:14] VITALS: O2SAT 97
[2017-06-15 07:02] LABS: BASO # 0.01 K/mm3 (0.0-2.0); BASO % 0.1 % (0.0-3.0); EOS # 0.1 (0.0-0.7); EOS % 0.6 % (1.5-5.0); GRAN # 9.26 (1.4-6.5); GRAN % 91.7 % (50.0-68.0); HEMATOCRIT 25.3 % (42.0-52.0); LYMPH # 0.4 (1.2-3.4); LYMPH % 3.7 % (22.0-35.0); MEAN CELL VOLUME 85.5 fl (80.0-105.0); MEAN CORPUSCULAR HEMOGLOBIN 27.4 pg (25.0-35.0); MEAN PLATELET VOLUME 9.1 fl (7.0-11.0); MONO # 0.4 (0.1-0.6); MONO % 3.9 % (1.0-6.0); RED CELL DISTRIBUTION WIDTH 18.9 % (11.5-14.5); WHITE BLOOD COUNT 10.1 10^3/ul (4.5-11.0)
[2017-06-15 07:38] LABS: CALCIUM 7.7 mg/dL (8.4-10.5); MAGNESIUM 1.4 mg/dL (1.7-2.2); PHOSPHOROUS 2.3 mg/dL (2.5-4.5)
[2017-06-15 07:40] LABS: POTASSIUM 5.4 mmol/L (3.6-5.0)
[2017-06-15] MEDS: Multivitamin Therapeutic Tab PO SCH (10:01)
[2017-06-15] MEDS: Sodium Chloride 0.9% 1,000 ML IV SCH (10:04)
[2017-06-15] MEDS ORDERED: Magnesium Sulfate 2 GM in Sodium Chloride 0.9% 100 ML IVPB ONE (14:26)
[2017-06-15] MEDS ORDERED: Sodium Chloride 0.9% 1,000 ML IV SCH (14:26)
[2017-06-15] MEDS ORDERED: Sodium Phosphate 15 MMOLE in Sodium Chloride 0.9% 250 ML IVPB ONE (14:27)
[2017-06-15] MEDS: Vancomycin 25 MG/ML PO SCH ×3 (14:46→18:23)
--- NOTE | 2017-06-15 15:09 | PN ---
DATE OF SERVICE: 06/15/2017 SUBJECTIVE: The patient is in bed, in no acute distress, and nontoxic on exam. OBJECTIVE: VITAL SIGNS: Temperature is 99, blood pressure is 130/60, respiratory rate of 18, heart rate of 74. HEENT: Unremarkable. NECK: Supple. LUNGS: Have decreased breath sounds. HEART: Normal S1 and S2. ABDOMEN: Soft, nontender. LABORATORY DATA: Laboratory examination reveals a white count of 10, hemoglobin of 8, platelets of 136. Coagulation is noted. Chemistries reveal a BUN of 32, creatinine of 1.9. Urinalysis is noted. Urine wbcs are too numerous to count, large bacteria. Microbiology is reviewed. The patient's repeat urine cultures noted to be mixed organisms. The blood cultures are no growth. Stool for C. diff is positive for antigen. Review of orders reveals the patient to be on IV Flagyl and p.o. vancomycin. ASSESSMENT AND PLAN: This is an 86-year-old male with pseudomembranous colitis, a syncopal episode, history of sepsis with prostatitis, left-sided pyelonephritis, colitis, diabetes, coronary artery disease with percutaneous coronary intervention, and chronic anemia, day #6 of vancomycin orally and intravenous Flagyl, may switch to just oral Flagyl, may complete with oral vancomycin, and discontinue the intravenous Flagyl for a total of 14 days of oral vancomycin, today is day #6 of oral vancomycin, upon discharge may discontinue the intravenous Flagyl. Remington Rodríguez MD
[2017-06-15 16:13] VITALS: BP 119/72; RESP 19; TEMP 97.8
[2017-06-15 16:29] VITALS: PULSE 88
--- NOTE | 2017-06-15 19:33 | PN ---
DATE: 06/15/2017 REASON FOR CONSULTATION: Cardiac evaluation admitted with syncope, orthostatic hypotension, UTI, and outpatient C. diff colitis. SUBJECTIVE: Denies any chest pain. Feels very weak, lethargic, and standing feels dizzy. OBJECTIVE: GENERAL: The patient still on standing feels dizziness, still orthostatic hypotension. VITAL SIGNS: Blood pressure dropped from 132/75 lying to standing 95/59. Rest of the examination as follows; HEENT: PERRLA. Extraocular muscles intact. NECK: Supple. No carotid bruit or thyromegaly. CHEST: Clear to auscultation. HEART: S1 and S2 regular. ABDOMEN: Soft. EXTREMITIES: Clubbing and cyanosis negative. LABORATORY DATA: Blood workup as follows: WBC 10.1, hemoglobin 8.1, hematocrit 25.3, and platelet count 136. Chemistry shows sodium 130, potassium 5.0, chloride , carbon dioxide 59, anion gap of 13, BUN 32, and creatinine of 1.9, and bilirubin 1.4. IMPRESSION: An 86-year-old male with past medical history significant for coronary artery disease, status post percutaneous transluminal coronary angioplasty in the past, admitted with urosepsis, severe protein-calorie malnutrition, and orthostatic hypotension. Now the patient has pseudomembranous enterocolitis. On admission, the patient had moderate, now severe protein-calorie malnutrition; still orthostatic hypotension with acute kidney injury, history of paroxysmal atrial fibrillation, and anemia. RECOMMENDATIONS: Continue IV fluid. History of pseudomembranous enterocolitis, as per ID recommendation increase nutrition support, history of PTCA on 06/04/2012. Most recent echocardiography done on 06/10/2017 showed ejection fraction 35%, [id number] aortic regurgitation, [id number] regurgitation, mild tricuspid regurgitation, systolic pressure 38. Recommended yesterday to give two dose of IV albumin, magnesium supplement, potassium supplement, and give sodium phosphate, discontinue Nutrophos, increase nutrition support, continue IV fluid, continue antibiotic. We will follow with you. Thank you Dr. Li for providing us the opportunity in taking care of Blayne Lian. Serena Monaco MD
== END 2017-06-15 21:17 | DRG 312 ==
LOC: ED 11:19 → ERH 15:48 → 2RSO 17:05
PROVIDERS: ADMIT Internal Medicine; ATTEND Internal Medicine
DX: I95.1 Orthostatic hypotension (principal); E43 Unspecified severe protein-calorie malnutrition; N17.9 Acute kidney failure, unspecified; A04.72 Enterocolitis due to Clostridium difficile, not specified as recurrent; N39.0 Urinary tract infection, site not specified; E11.22 Type 2 diabetes mellitus with diabetic chronic kidney disease; N18.9 Chronic kidney disease, unspecified; I48.0 Paroxysmal atrial fibrillation; J44.9 Chronic obstructive pulmonary disease, unspecified; I25.10 Atherosclerotic heart disease of native coronary artery without angina pectoris; E78.5 Hyperlipidemia, unspecified; D64.9 Anemia, unspecified; M54.9 Dorsalgia, unspecified; E86.0 Dehydration; I08.3 Combined rheumatic disorders of mitral, aortic and tricuspid valves; R55 Syncope and collapse; Z85.51 Personal history of malignant neoplasm of bladder; Z86.74 Personal history of sudden cardiac arrest; Z93.6 Other artificial openings of urinary tract status; Z87.891 Personal history of nicotine dependence; Z79.84 Long term (current) use of oral hypoglycemic drugs; Z95.5 Presence of coronary angioplasty implant and graft; Z79.01 Long term (current) use of anticoagulants